=== PATIENT | female | born 1950 | race Caucasian/White ===

== ENCOUNTER 2016-09-09 07:42 | Day surgery (SDC) | payer BC ==
[~2016-09-09 07:42] MED LIST: Lactated Ringers 1,000 ML IV SCH
--- NOTE | 2016-09-09 08:37 | PCM.PREANE ---
Preanesthetic Assessment - Anesthesia/Transfusion/Family Hx Anesthesia History: Prior Anesthesia Without Reaction Other Type of Anesthesia Reaction Comment: pt states her mother has problems with confusion post anesthesia Family History of Anesthesia Reaction: No Transfusion History: Prior Transfusion Without Reaction - Review of Systems General: No Symptoms Pulmonary: No Symptoms Cardiovascular: No Symptoms Gastrointestinal: No symptoms Neurological: No Symptoms Other: Reports: None - Physical Assessment NPO Status Date: 09/08/16 Height: 1.6 m Weight: 120.202 kg ASA Class: 2 Mental Status: Alert & Oriented x3 Airway Class: Mallampati = 2 Dentition: Reports: Normal Dentition Lungs: Clear to auscultation Cardiovascular: Regular Rate, Regular Rhythm - Lab Values: Laboratory Last Values WBC 5.96 K/uL (4.0-11.0) 09/09/16 08:15 RBC 4.65 M/uL (4.30-5.90) 09/09/16 08:15 Hgb 15.5 g/dL (12.0-16.0) 09/09/16 08:15 Hct 46.0 % (36.0-46.0) 09/09/16 08:15 MCV 98.9 fL (80.0-98.0) H 09/09/16 08:15 MCH 33.3 pg (27.0-32.0) H 09/09/16 08:15 MCHC 33.7 g/dL (31.0-37.0) 09/09/16 08:15 RDW Std Deviation 50.5 fl (28.0-62.0) 09/09/16 08:15 RDW Coeff of Jamia 14 % (11.0-15.0) 09/09/16 08:15 Plt Count 263 K/uL (150-400) 09/09/16 08:15 MPV 10.20 fL (7.40-12.00) 09/09/16 08:15 Nucleated RBC % 0.0 /100WBC 09/09/16 08:15 Nucleated RBCs # 0 K/uL 09/09/16 08:15 - Allergies Allergies/Adverse Reactions: Allergies Allergy/AdvReac Type Severity Reaction Status Date / Time codeine Allergy Hives Verified 05/03/15 19:45 metals Allergy Rash Uncoded 09/14/15 13:45 - Blood Blood Available: No - Anesthesia Plan Pre-Op Medication Ordered: None - Acknowledgements Anesthesia Type Planned: General Anesthesia Pt an Appropriate Candidate for the Planned Anesthesia: Yes Alternatives and Risks of Anesthesia Discussed w Pt/Guardian: Yes Pt/Guardian Understands and Agrees with Anesthesia Plan: Yes PreAnesthesia Questionnaire HEENT History: Reports: Other (see below) Other HEENT History: wears glasses Cardiovascular History: Reports: High cholesterol Respiratory History: Reports: None Gastrointestinal History: Reports: GERD Other Gastrointestinal History: esophagitism, hx of crohn's disease, hx of bowel obstruction Genitourinary History: Reports: Renal calculus Other Genitourinary History: hx kidney stones and UTI, fibrocystic breasts, present c/o abnormal uterine bleeding 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 Female Surgical History: Reports: Breast biopsy, D&C Other Female Surgeries/Procedures: hx laparotomy x2 for ovarian cysts, breast bx x2, - SUBSTANCE USE Smoking Status *Q: Former Smoker Tobacco Use Within Last Twelve Months: No Days Per Week of Alcohol Use: 1 Number of Drinks Per Day: 1 Total Drinks Per Week: 1 Recreational Drug Use History: No - HOME MEDS Home Medications: Home Meds ClonazePAM [KlonoPIN] 0.5 mg PO DAILY 05/03/15 [History] Omeprazole 20 mg PO DAILY 05/03/15 [History] atorvaSTATin [Lipitor] 20 mg PO BEDTIME 05/03/15 [History] azaTHIOprine [Azathioprine] 1 tab PO TID 05/03/15 [History] Ibuprofen 1 tab PO Q6H PRN 09/14/15 [History] medroxyPROGESTERone [Provera] 10 mg PO DAILY 04/16/16 [History] Phentermine/Topiramate [Qsymia 15 mg-92 mg Capsule] 1 tab PO DAILY 09/05/16 [ History] - CURRENT (IN HOUSE) MEDS Current Meds: Current Medications Lactated Ringer's (Ringers, Lactated) 1,000 mls @ 100 mls/hr IV ASDIRECTED CARTER Preanesthetic Assessment - ANESTHESIA/TRANSFUSION/FAMILY HX Anesthesia/Transfusion History: Prior Anesthesia (ileostomy for bowel obstruction, ovary, breast cysts, D+C, ETOP: no anesthesia issues noted), Prior Transfusion Other Type of Anesthesia Reaction Comment: pt states her mother has problems with confusion post anesthesia Family History of Anesthesia Reaction: No Other Intubation History Comment: no known problems - PHYSICAL ASSESSMENT Height: 1.6 m Weight: 120.202 kg - LAB Values: Laboratory Last Values WBC 5.96 K/uL (4.0-11.0) 09/09/16 08:15 RBC 4.65 M/uL (4.30-5.90) 09/09/16 08:15 Hgb 15.5 g/dL (12.0-16.0) 09/09/16 08:15 Hct 46.0 % (36.0-46.0) 09/09/16 08:15 MCV 98.9 fL (80.0-98.0) H 09/09/16 08:15 MCH 33.3 pg (27.0-32.0) H 09/09/16 08:15 MCHC 33.7 g/dL (31.0-37.0) 09/09/16 08:15 RDW Std Deviation 50.5 fl (28.0-62.0) 09/09/16 08:15 RDW Coeff of Jamia 14 % (11.0-15.0) 09/09/16 08:15 Plt Count 263 K/uL (150-400) 09/09/16 08:15 MPV 10.20 fL (7.40-12.00) 09/09/16 08:15 Nucleated RBC % 0.0 /100WBC 09/09/16 08:15 Nucleated RBCs # 0 K/uL 09/09/16 08:15 - ALLERGIES Allergies/Adverse Reactions: Allergies Allergy/AdvReac Type Severity Reaction Status Date / Time codeine Allergy Hives Verified 05/03/15 19:45 metals Allergy Rash Uncoded 09/14/15 13:45
[2016-09-09] MEDS ORDERED: fentaNYL 100 MCG/2 ML SDV ONE (08:54)
[2016-09-09] MEDS ORDERED: Midazolam 1 MG/ML 2 ML SDV ONE (08:54)
[2016-09-09] MEDS ORDERED: Lidocaine 2% 5 ML SDV ONE (08:54)
[2016-09-09] MEDS ORDERED: Propofol 200 MG/20 ML SDV ONE (08:54)
[2016-09-09] MEDS ORDERED: fentaNYL 100 MCG/2 ML SDV IVPUSH PRN (09:58)
[2016-09-09] MEDS ORDERED: Ketorolac 30 MG/ML SDV ONE (10:05)
[2016-09-09] MEDS ORDERED: Ondansetron 4 MG/2 ML SDV ONE (10:05)
--- NOTE | 2016-09-09 10:46 | PCM.OPNOTE ---
- General Post-Op/Procedure Note Date of Surgery/Procedure: 09/09/16 Operative Procedure(s): operative hysteroscopy with endometrial and endocervical sampling, placement of Mirena IUD Findings: Uterus fix, retroverted sounds to 7 cm. Bilateral tubal ostia identified, there is a small fundal polyp and irregular endometrium in the lower uterine segment which were sampled. Post-Op Diagnosis: Same Primary Surgeon: Janine Bonilla Anesthesia Provider: Meron Jimenez Pathology: endometrial curettings, endocervical curettings. Fluid Replacement, Intraop: 500 EBL in mLs: 30 Drain/Tube Comments:: hysteroscopic deficit 200 ml NS Complications: None Known Condition: Good
--- NOTE | 2016-09-09 11:00 | PCM.POSTAN ---
POST ANESTHESIA ASSESSMENT - MENTAL STATUS Mental Status: alert, oriented - RESPIRATORY Respiratory Status: respiratory rate WNL, airway patent, O2 saturation stable - CARDIOVASCULAR CV Status: pulse rate WNL, blood pressure stable - GASTROINTESTINAL GI Status: no symptoms - PAIN Pain Score: 2 - POST OP HYDRATION Hydration Status: adequate & stable
--- NOTE | 2016-09-09 11:48 | PCM48HPAN ---
Post Anesthesia Note - EVALUATION WITHIN 48HRS OF ANESTHETIC Vital Signs in Normal Range: Yes Patient Participated in Evaluation: Yes Respiratory Function Stable: Yes Airway Patent: Yes Cardiovascular Function Stable: Yes Hydration Status Stable: Yes Pain Control Satisfactory: Yes Nausea and Vomiting Control Satisfactory: Yes Mental Status Recovered: Yes
[2016-09-09 14:25] VITALS: BP 122/74
--- NOTE | 2016-09-16 09:08 | OR ---
SURGEON: Janine Bonilla M.D. 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 POSTOPERATIVE DIAGNOSIS: Endometrial intraepithelial endothelial neoplasia. PROCEDURE: Diagnostic hysteroscopy with fractional D and C and IUD placement. ANESTHESIA: General endotracheal. FLUIDS: 500 mL crystalloid. HYSTEROSCOPIC DEFICIT: 200 mL. FINDINGS: The uterus is fixed in the pelvis, it sounds to 7 cm. There is a polypoid structure at the right uterine fundus which was removed. Some irregular endometrium on the lower uterine segment which was biopsied. COMPLICATIONS: None known. DISPOSITION: Stable to recovery. BRIEF HISTORY: This is a 66-year-old female. She had a hysteroscopic polypectomy which showed complex endometrial hyperplasia with atypia. She was sent in consultation to the [facility] oncologist, as she does have Crohn's disease, her uterus is fixed. She has a history of enterovaginal fistula and after consulting with the [facility]/DEPUT[facility] oncologist, they recommended re-sampling as well as placement of Mirena IUD. I explained to her that the insertion of the IUD could be very difficult due to the position of her uterus. She understands this. I also will have a Elsa available. She did take Cytotec preoperatively. Surgical risks of hysteroscopy including bleeding, infection, uterine perforation, injury to surrounding organs, risk of fluid overload, risk of thromboembolism, and anesthesia risks were discussed. The Mirena IUD risks were discussed including risk of PID, the fact that it does not prevent sexually transmitted diseases, risk of insertion including perforation requiring surgical removal. She understands that irregular bleeding may occur after the insertion and the need for the IUD to be removed or changed after five years. Understanding all these risks, she does desire to proceed. DESCRIPTION OF PROCEDURE: With the patient in dorsal lithotomy position, under adequate general endotracheal anesthesia, the perineum and vagina were prepped with Betadine and draped in usual fashion for vaginal surgery. An appropriate time-out was held. Bimanual examination revealed a fixed uterus, high in the pelvis in a sharply retroverted position. I took the 5 mm tapered hysteroscope and was able to, with hydro pressure, pass the 5 mm scope through the cervix into the sharply tilted uterine cavity and had excellent visualization. However, there was a polyp at the fundus and irregular endometrium at the base, therefore I felt the need to have directed biopsies which were most easily accomplished with the MyoSure. Therefore, the cervix was further dilated to an 8 mm Hegar dilator. The MyoSure system was placed into the uterine cavity and the directed biopsies were performed as well as sampling of the entire endometrial cavity. This was sent as endometrial curettings. The hysteroscope was removed. Sharp curettage was performed of the endocervix and collected with a Cytobrush and the sample was sent as endocervical curettings. I used the sound which was easily passed through the cervix which had been dilated and the uterus sounded to 7 cm and the IUD was placed to the uterine fundus released and the string was cut with no difficulty. The final sponge, needle, and instrument counts were reported as correct. Hysteroscopic deficit was 200 mL of normal saline. There were no known complications. The patient was transferred to recovery in good condition. CHRISTOPH DOWNS /[id number]
== END 2016-09-09 11:56 | disposition home or self-care (01) ==
LOC: MW.SDS 07:42
PROVIDERS: ATTEND Obstetrics & Gynecology
PROC: 0UDB8ZX Extraction of Endometrium, Via Natural or Artificial Opening Endoscopic, Diagnostic (ICD-10-PCS; principal; 2016-09-09)
PROC: 0UH97HZ Insertion of Contraceptive Device into Uterus, Via Natural or Artificial Opening (ICD-10-PCS; 2016-09-09)
DX: N85.00 Endometrial hyperplasia, unspecified (principal); Z30.014 Encounter for initial prescription of intrauterine contraceptive device; N84.0 Polyp of corpus uteri; K50.90 Crohn's disease, unspecified, without complications; E78.00 Pure hypercholesterolemia, unspecified; E78.5 Hyperlipidemia, unspecified; Z93.2 Ileostomy status; Z79.899 Other long term (current) drug therapy
CPT/HCPCS: 36415; 58300; 58558; 85027; 88305; J1885; J2250; J2405; J3010; J7120; 00952; J2704

== ENCOUNTER 2017-08-08 06:10 | Emergency (ER) | payer MEDICARE, BC ==
--- NOTE | 2017-08-08 06:16 | EDM.PDOC ---
ED HPI GENERAL MEDICAL PROBLEM - General Stated Complaint: ISSUES WITH LYMPH NODES Time Seen by Provider: 08/08/17 06:30 Source of Information: Reports: Patient - History of Present Illness INITIAL COMMENTS - FREE TEXT/NARRATIVE: HISTORY AND PHYSICAL: History of present illness: [67-year-old female presenting to emergency department with chief complaint of painful rash on left side of neck and head with past medical history of Crohn's disease on immunosuppression. Patient states that approximately 3-4 days ago she developed a painful rash on the back of her head has now extended to the left side of her neck. She describes the pain as burning and electrical. The rash is not pruritic and she reports no associated fevers, chills, nausea, vomiting, or diarrhea. Patient is on immunosuppression secondary to her Crohn's disease. When questioned she states that she cannot get the shingles vaccine. Patient currently denies any chest pain, palpitations, shortness breath, syncopal episodes, or focal neurologic deficits. On physical examination she has a vesicular painful rash involving the posterior aspect of the head and neck not crossing midline pathognomonic for herpes zoster. Patient is immunocompromised secondary to her Crohn's disease and did not receive the shingles vaccine. She states that she has had no vision or hearing changes on the left side where the rash is predominant. We'll treat with valacyclovir as unsure of the kidney function to use acyclovir. Patient given a prescription for valacyclovir thousand milligrams by mouth 3 times a day 7 days #21. She sees nor does he and I will help schedule an appointment to have her seen early next week. She should return in the emergency department immediately if she notices any change in her vision. She continues Tylenol and ibuprofen for pain as she states that her pain is only 3 out of 10 at this time.] Review of systems: As per history of present illness and below otherwise all systems reviewed and negative. Past medical history: As per history of present illness and as reviewed below otherwise noncontributory. Surgical history: As per history of present illness and as reviewed below otherwise noncontributory. Social history: No reported history of drug or alcohol abuse. Family history: As per history of present illness and as reviewed below otherwise noncontributory. Physical exam: HEENT: Atraumatic, normocephalic, pupils reactive, negative for conjunctival pallor or scleral icterus, mucous membranes moist, throat clear, neck supple, nontender, trachea midline. Lungs: Clear to auscultation, breath sounds equal bilaterally, chest nontender. Heart: S1S2, regular, negative for clicks, rubs, or JVD. Abdomen: Soft, nondistended, nontender. Negative for masses or hepatosplenomegaly. Negative for costovertebral tenderness. Pelvis: Stable nontender. Genitourinary: Deferred. Rectal: Deferred. Extremities: Atraumatic, negative for cords or calf pain. Neurovascular unremarkable. Neuro: Awake, alert, oriented. Cranial nerves II through XII unremarkable. Cerebellum unremarkable. Motor and sensory unremarkable throughout. Exam nonfocal. Skin: Painful vesicular rash with surrounding erythema on the posterior aspect of neck not crossing the midline and wrapping around the left side of the neck. Diagnostics: [] Therapeutics: [Valacyclovir 1000 mg 3 times a day 7 days] Impression: [Herpes zoster in an immunocompromise patient without involvement of the eye.] Plan: [On physical examination she has a vesicular painful rash involving the posterior aspect of the head and neck not crossing midline pathognomonic for herpes zoster. Patient is immunocompromised secondary to her Crohn's disease and did not receive the shingles vaccine. She states that she has had no vision or hearing changes on the left side where the rash is predominant. We'll treat with valacyclovir as unsure of the kidney function to use acyclovir. Patient given a prescription for valacyclovir thousand milligrams by mouth 3 times a day 7 days #21. She sees Dr. Sun and I will help schedule an appointment to have her seen early next week. She should return in the emergency department immediately if she notices any change in her vision. She continues Tylenol and ibuprofen for pain as she states that her pain is only 3 out of 10 at this time. ] - Related Data Allergies Allergy/AdvReac Type Severity Reaction Status Date / Time codeine Allergy Hives Verified 08/08/17 06:25 metals Allergy Rash Uncoded 08/08/17 06:25 Home Meds: Home Meds ClonazePAM [KlonoPIN] 0.5 mg PO DAILY 05/03/15 [History] Omeprazole 20 mg PO DAILY 05/03/15 [History] atorvaSTATin [Lipitor] 20 mg PO BEDTIME 11/11/15 [History] azaTHIOprine [Azathioprine] 1 tab PO TID 05/03/15 [History] Ibuprofen 1 tab PO Q6H PRN 09/14/15 [History] Phentermine/Topiramate [Qsymia 15 mg-92 mg Capsule] 1 tab PO DAILY 09/05/16 [ History] Past Medical History HEENT History: Reports: Other (See Below) Other HEENT History: wears glasses Cardiovascular History: Reports: High Cholesterol Respiratory History: Reports: None Gastrointestinal History: Reports: GERD Other Gastrointestinal History: esophagitism, hx of crohn's disease, hx of bowel obstruction Genitourinary History: Reports: Renal Calculus Other Genitourinary History: hx kidney stones and UTI, fibrocystic breasts, present c/o abnormal uterine bleeding 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 OB/BYN History: ETOP Musculoskeletal History: Reports: None Neurological History: Reports: Migraines Psychiatric History: Reports: Anxiety Endocrine/Metabolic History: Reports: Obesity/BMI 30+ Hematologic History: Reports: Blood Transfusion(s) Immunologic History: Reports: None Oncologic (Cancer) History: Reports: None Dermatologic History: Reports: None - Past Surgical History Female Surgical History: Reports: Breast Biopsy, D&C Social & Family History - Tobacco Use Smoking Status *Q: Former Smoker Years of Tobacco use: 30 Used Tobacco, but Quit: Yes Month Tobacco Last Used: quit smoking 10 yrs ago - Alcohol Use Days Per Week of Alcohol Use: 1 Number of Drinks Per Day: 1 Total Drinks Per Week: 1 - Recreational Drug Use Recreational Drug Use: No Drug Use in Last 12 Months: No ED ROS GENERAL - Review of Systems Review Of Systems: See Below ED EXAM, GENERAL - Physical Exam Exam: See Below Course - Vital Signs Last Recorded V/S: Last Vital Signs Temp 98 F 08/08/17 06:29 Pulse 81 08/08/17 06:29 Resp 18 08/08/17 06:29 BP 187/90 H 08/08/17 06:29 Pulse Ox 98 08/08/17 06:29 Departure - Departure Time of Disposition: 06:57 Disposition: Home, Self-Care 01 Condition: Good Clinical Impression: Herpes zoster - Discharge Information Additional Instructions: My general discharge The following information is given to patients seen in the emergency department who are being discharged to home. This information is to outline your options for follow-up care. We provide all patients seen in our emergency department with a follow-up referral. The need for follow-up, as well as the timing and circumstances, are variable depending upon the specifics of your emergency department visit. If you don't have a primary care physician on staff, we will provide you with a referral. We always advise you to contact your personal physician following an emergency department visit to inform them of the circumstance of the visit and for follow-up with them and/or the need for any referrals to a consulting specialist. The emergency department will also refer you to a specialist when appropriate. This referral assures that you have the opportunity for follow-up care with a specialist. All of these measure are taken in an effort to provide you with optimal care, which includes your follow-up. Under all circumstances we always encourage you to contact your private physician who remains a resource for coordinating your care. When calling for follow-up care, please make the office aware that this follow-up is from your recent emergency room visit. If for any reason you are refused follow-up, please contact the [facility] Emergency Department at and asked to speak to the emergency department charge nurse. [address] [id number]
[2017-08-08 07:07] VITALS: BP 159/86
== END 2017-08-08 07:00 | disposition home or self-care (01) ==
LOC: MW.ED 06:10
DX: B02.9 Zoster without complications (principal); E78.00 Pure hypercholesterolemia, unspecified; K21.9 Gastro-esophageal reflux disease without esophagitis; F41.9 Anxiety disorder, unspecified; Z87.891 Personal history of nicotine dependence; Z79.899 Other long term (current) drug therapy; Z88.5 Allergy status to narcotic agent; Z88.8 Allergy status to other drugs, medicaments and biological substances
CPT/HCPCS: 99282; 99283

== ENCOUNTER 2017-08-15 06:23 | Day surgery (SDC) | payer MEDICARE, BC ==
[2017-08-14 08:39] LABS: CHLORIDE,CL 111 mmol/L (98-110); SODIUM,NA 141 mmol/L (136-146)
[2017-08-15] MEDS ORDERED: Lactated Ringers 1,000 ML IV SCH (06:30)
[2017-08-15] MEDS ORDERED: Propofol 200 MG/20 ML SDV ONE (07:15)
[2017-08-15] MEDS ORDERED: Lidocaine 2% 5 ML SDV ONE (07:15)
[2017-08-15] MEDS ORDERED: Midazolam 1 MG/ML 2 ML SDV ONE (07:15)
[2017-08-15] MEDS ORDERED: fentaNYL 100 MCG/2 ML SDV ONE (07:15)
[2017-08-15] MEDS ORDERED: Ondansetron 4 MG/2 ML SDV ONE (07:15)
--- NOTE | 2017-08-15 07:25 | PCM.PREANE ---
Preanesthetic Assessment - Anesthesia/Transfusion/Family Hx Anesthesia History: Prior Anesthesia Without Reaction Other Type of Anesthesia Reaction Comment: pt states her mother has problems with confusion post anesthesia Family History of Anesthesia Reaction: No Transfusion History: Prior Transfusion Without Reaction Intubation History: Unknown - Review of Systems General: No Symptoms Pulmonary: No Symptoms Cardiovascular: No Symptoms Gastrointestinal: No Symptoms Neurological: No Symptoms Other: Reports: None - Physical Assessment O2 Sat by Pulse Oximetry: 97 Respiratory Rate: 16 Vital Signs: Last Vital Signs Temp 36.3 C 08/15/17 06:58 Pulse 71 08/15/17 06:58 Resp 16 08/15/17 06:58 BP 146/68 H 08/15/17 06:58 Pulse Ox 97 08/15/17 06:58 Height: 1.6 m Weight: 112.945 kg Mental Status: Alert & Oriented x3 Airway Class: Mallampati = 2 Dentition: Reports: Normal Dentition, [place](s) (x4 upper front) Thyro-Mental Finger Breadths: 3 Mouth Opening Finger Breadths: 3 ROM/Head Extension: Full Lungs: Clear to Auscultation, Normal Respiratory Effort Cardiovascular: Regular Rate, Regular Rhythm - Lab Values: Laboratory Last Values WBC 3.59 K/uL (4.0-11.0) L 08/14/17 08:01 RBC 4.31 M/uL (4.30-5.90) 08/14/17 08:01 Hgb 14.8 g/dL (12.0-16.0) 08/14/17 08:01 Hct 42.9 % (36.0-46.0) 08/14/17 08:01 MCV 99.5 fL (80.0-98.0) H 08/14/17 08:01 MCH 34.3 pg (27.0-32.0) H 08/14/17 08:01 MCHC 34.5 g/dL (31.0-37.0) 08/14/17 08:01 RDW Std Deviation 52.4 fl (28.0-62.0) 08/14/17 08:01 RDW Coeff of Jamia 15 % (11.0-15.0) 08/14/17 08:01 Plt Count 219 K/uL (150-400) 08/14/17 08:01 MPV 9.60 fL (7.40-12.00) 08/14/17 08:01 Nucleated RBC % 0.0 /100WBC 08/14/17 08:01 Nucleated RBCs # 0 K/uL 08/14/17 08:01 Sodium 141 mmol/L (136-146) 08/14/17 08:01 Potassium 3.9 mmol/L (3.5-5.1) 08/14/17 08:01 Chloride 111 mmol/L (98-110) H 08/14/17 08:01 Carbon Dioxide 20 mmol/L (21-31) L 08/14/17 08:01 BUN 12 mg/dL (6.0-23.0) 08/14/17 08:01 Creatinine 0.8 mg/dL (0.6-1.5) 08/14/17 08:01 Est Cr Clr Drug Dosing 57.99 mL/min 08/14/17 08:01 Estimated GFR (MDRD) > 60.0 ml/min 08/14/17 08:01 Glucose 137 mg/dL (60-110) H 08/14/17 08:01 Calcium 9.1 mg/dL (8.8-10.8) 08/14/17 08:01 Total Bilirubin 2.0 mg/dL (0.1-1.5) H 08/14/17 08:01 Direct Bilirubin 0.6 mg/dL (0.0-0.5) H 08/14/17 08:01 Indirect Bilirubin 1.4 mg/dL (0.0-1.0) H 08/14/17 08:01 AST 19 IU/L (5-40) 08/14/17 08:01 ALT 20 IU/L (8-54) 08/14/17 08:01 Alkaline Phosphatase 78 (40-150) 08/14/17 08:01 Total Protein 7.1 g/dL (6.0-8.0) 08/14/17 08:01 Albumin 3.8 g/dL (3.4-4.8) 08/14/17 08:01 Globulin 3.3 g/dL (2.0-3.5) 08/14/17 08:01 Albumin/Globulin Ratio 1.2 (1.3-2.8) L 08/14/17 08:01 Triglycerides 86 mg/dL (10-190) 08/14/17 08:01 Cholesterol 155 mg/dL (131-240) 08/14/17 08:01 LDL Cholesterol, Calc 94 mg/dL (60-180) 08/14/17 08:01 VLDL Cholesterol 17 mg/dL (5-55) 08/14/17 08:01 HDL Cholesterol 44 mg/dL (40-80) 08/14/17 08:01 Cholesterol/HDL Ratio 3.5 (3.3-6.0) 08/14/17 08:01 TSH 3rd Generation 1.37 uIU/mL (0.47-5.0) 08/14/17 08:01 - Allergies Allergies/Adverse Reactions: Allergies Allergy/AdvReac Type Severity Reaction Status Date / Time codeine Allergy Hives Verified 08/13/17 10:09 metals Allergy Rash Uncoded 08/08/17 06:25 - Blood Blood Available: No - Anesthesia Plan Pre-Op Medication Ordered: None - Acknowledgements Anesthesia Type Planned: General Anesthesia Pt an Appropriate Candidate for the Planned Anesthesia: Yes Alternatives and Risks of Anesthesia Discussed w Pt/Guardian: Yes Pt/Guardian Understands and Agrees with Anesthesia Plan: Yes PreAnesthesia Questionnaire HEENT History: Reports: Other (See Below) Other HEENT History: wears glasses Cardiovascular History: Reports: High Cholesterol Respiratory History: Reports: None Gastrointestinal History: Reports: GERD, Hiatal Hernia, Inflammatory Bowel Disease Other Gastrointestinal History: has Crohns- has Illeostomy since Genitourinary History: Reports: Renal Calculus Other Genitourinary History: hx kidney stones and UTI, fibrocystic breasts, present c/o abnormal uterine bleeding SHIFT MGR History: Reports: Ectopic , Other OB/BYN History: ETOP Musculoskeletal History: Reports: Fracture Other Musculoskeletal History: hx of fx wrist and ankle Neurological History: Reports: Migraines, Other (See Below) Other Neuro History: hx of motion sickness Psychiatric History: Reports: Anxiety Endocrine/Metabolic History: Reports: Obesity/BMI 30+ (BMI 44.1) Hematologic History: Reports: Blood Transfusion(s) Immunologic History: Reports: None Oncologic (Cancer) History: Reports: None Dermatologic History: Reports: Eczema - Past Surgical History Head Surgeries/Procedures: Reports: None GI Surgical History: Reports: Small Bowel Other GI Surgeries/Procedures: Illestomy, revision of Illeostomy Female Surgical History: Reports: Breast Biopsy (removal of breast cysts x2) , D&C (x2), Other (See Below) Other Female Surgeries/Procedures: removable of ovarian cysts, hysteroscopy 09/06 Musculoskeletal Surgical History: Reports: ORIF Other Musculoskeletal Surgeries/Procedures:: hx of ORIF wrist- no hardware - SUBSTANCE USE Smoking Status *Q: Former Smoker Tobacco Use Within Last Twelve Months: No Days Per Week of Alcohol Use: 1 Number of Drinks Per Day: 1 Total Drinks Per Week: 1 Recreational Drug Use History: No - HOME MEDS Home Medications: Home Meds ClonazePAM [KlonoPIN] 0.5 mg PO QAM 05/03/15 [History] Omeprazole 20 mg PO DAILY 05/03/15 [History] atorvaSTATin [Lipitor] 20 mg PO QAM 05/03/15 [History] azaTHIOprine [Azathioprine] 50 mg PO TID 05/03/15 [History] Ibuprofen 200 mg PO Q6H PRN 09/14/15 [History] Phentermine/Topiramate [Qsymia 15 mg-92 mg Capsule] 1 tab PO DAILY 09/05/16 [ History] Multivitamin [Multiple Vitamins] 1 tab PO DAILY 08/13/17 [History] - CURRENT (IN HOUSE) MEDS Current Meds: Current Medications Lactated Ringer's (Ringers, Lactated) 1,000 mls @ 125 mls/hr IV ASDIRECTED CARTER Last Admin: 08/15/17 07:01 Dose: 125 mls/hr Discontinued Medications Fentanyl (Sublimaze) Confirm Administered Dose 100 mcg .ROUTE .STK-MED ONE Stop: 08/15/17 07:16 Lidocaine (Xylocaine-Mpf 2%) Confirm Administered Dose 5 ml .ROUTE .STK-MED ONE Stop: 08/15/17 07:16 Midazolam HCl (Versed 1 Mg/Ml) Confirm Administered Dose 2 mg .ROUTE .STK-MED ONE Stop: 08/15/17 07:16 Ondansetron HCl (Zofran) Confirm Administered Dose 4 mg .ROUTE .STK-MED ONE Stop: 08/15/17 07:16 Propofol (Diprivan 20 Ml) Confirm Administered Dose 200 mg .ROUTE .STK-MED ONE Stop: 08/15/17 07:16
[2017-08-15] MEDS ORDERED: fentaNYL 100 MCG/2 ML SDV IVPUSH PRN (08:08)
[2017-08-15] MEDS ORDERED: Ketorolac 30 MG/ML SDV ONE (08:50)
--- NOTE | 2017-08-15 08:57 | PCM.OPNOTE ---
- General Post-Op/Procedure Note Date of Surgery/Procedure: 08/15/17 Operative Procedure(s): operative hysteroscopy with directed biopsies and endocervical curettage Findings: uterus fixed immobile, sharply anteverted, sounds to 7 cm, hysteroscopy shows irregular frond-like lesions in lower uterine segment, biopsied, right endometrial cavity showed polypoid lesions, biopsied. Pre Op Diagnosis: endometrial hyperplasia with atypia Post-Op Diagnosis: Same Anesthesia Technique: General ET Tube Primary Surgeon: Janine Bonilla Anesthesia Provider: Orlin Nowak Driftman: Natividad Vazquez Pathology: directed biopsies, lower uterine segment; directed endometrial biopsied; endocervical curettage Fluid Replacement, Intraop: 1,000 EBL in mLs: 10 Drain/Tube Comments:: hysteroscopic deficit 100 ml NS Complications: None Condition: Good
[2017-08-15 10:14] VITALS: BP 135/62
--- NOTE | 2017-08-15 10:19 | PCM48HPAN ---
Post Anesthesia Note - EVALUATION WITHIN 48HRS OF ANESTHETIC Vital Signs in Normal Range: Yes Patient Participated in Evaluation: Yes Respiratory Function Stable: Yes Airway Patent: Yes Cardiovascular Function Stable: Yes Hydration Status Stable: Yes Pain Control Satisfactory: Yes Nausea and Vomiting Control Satisfactory: Yes Mental Status Recovered: Yes Resp Rate: 15 - COMMENTS/OBSERVATIONS Free Text/Narrative:: no anesthesia problems
--- NOTE | 2017-08-15 14:15 | OR ---
SURGEON: Janine Bonilla M.D. DATE OF PROCEDURE: 08/15/2017 PREOPERATIVE DIAGNOSIS: Endometrial intraepithelial neoplasia. POSTOPERATIVE DIAGNOSIS: Endometrial intraepithelial neoplasia. PROCEDURE: Operative hysteroscopy with directed biopsies and endocervical curettings. ANESTHESIA: General endotracheal. FLUIDS: 1000 mL crystalloid. Hysteroscopic deficit was 100 mL. ESTIMATED BLOOD LOSS: Minimal. COMPLICATIONS: None known. DISPOSITION: Stable to recovery. SPECIMENS: Lower uterine segment biopsies, endometrial biopsies, and endocervical curettings. FINDINGS: The uterus is 6-to 7-week size, markedly anteverted and completely immobile with the cervix fixed to the posterior vagina. The IUD string is visible. The uterus sounds to 7 cm and findings were the right side of the endometrium had some polypoid structures, which were biopsied in the lower uterine segment, were some frondlike irregular areas of endometrium, which were biopsied at the lower uterine segment biopsy. The fundus itself was smooth without lesions. The cervix was smooth without lesions. BRIEF HISTORY: This is a 67-year-old female, she had a history of focal complex hyperplasia in March of 2016 with mild hyperplasia most recently in August of 2016. She has had a Mirena IUD in place since August of 2016 and is here for a followup tissue sampling. She denies any bleeding at this time. She does have some cramping. She states this has occurred since IUD placement. Ultrasound was performed, which showed the IUD to be appropriately positioned. She is consented for diagnostic hysteroscopy with directed biopsy, and D and C, diagnostic possible operative hysteroscopy with directed biopsies, and D and C. The tissue would most likely be obtained by direct biopsy to prevent displacement of the IUD. Risks including bleeding, infection, uterine perforation with injury to surrounding organs, risk of fluid overload, and risk of thromboembolism and anesthesia were discussed. Understanding all these risks, she does desire to proceed. DESCRIPTION OF PROCEDURE: With the patient in dorsal lithotomy position, under adequate general endotracheal anesthesia, the perineum and vagina were prepped with Betadine and draped in the usual fashion for vaginal surgery. After an appropriate time-out was held and the bladder had been drained, SCDs were in place. A bimanual examination was performed with findings as noted above. A speculum was placed into the vagina. The anterior cervix was grasped with an Allis clamp. The narrow tipped 5 mm hysteroscope was placed through the external cervical os and with normal saline open through the hysteroscope I was able to pass without further dilatation. The IUD string was visible, the IUD was visible, and the fundus was identified with a small air bubble and scissors followed by hysteroscopic biopsy forceps were utilized to biopsy the right uterine wall as well as the lower uterine segment. These were sent as 2 separate specimens. There were no other lesions to be biopsied within the uterine cavity. The endocervix was evaluated using a Cytobrush for sampling of the endocervix, which was sent as endocervical curettings. With this being complete, the hysteroscope was removed and all the instruments removed from the vagina. Final sponge, needle, and instrument counts were reported as correct. There were no known complications. The patient was transferred to recovery in good condition. CHRISTOPH DOWNS /[id number]
== END 2017-08-15 10:20 | disposition home or self-care (01) ==
LOC: MW.SDS 06:23
PROVIDERS: ATTEND Obstetrics & Gynecology
DX: N85.02 Endometrial intraepithelial neoplasia [EIN] (principal); E78.00 Pure hypercholesterolemia, unspecified; Z79.899 Other long term (current) drug therapy; Z93.2 Ileostomy status; Z97.5 Presence of (intrauterine) contraceptive device; Z87.891 Personal history of nicotine dependence
CPT/HCPCS: 36415; 58558; 80053; 80061; 82247; 82248; 84443; 85027; 88305; J1885; J2250; J2405; J3010; J7120; 00952; J2704

== ENCOUNTER 2019-01-22 22:12 | Emergency (ER) | payer MEDICARE, BC ==
[2019-01-22] MEDS ORDERED: Sodium Chloride 0.9% 10 ML Syringe FLUSH PRN (22:23)
[2019-01-22] MEDS ORDERED: Ondansetron 4 MG/2 ML SDV IVPUSH ONE (22:23)
[2019-01-22] MEDS ORDERED: Sodium Chloride 0.9% 1,000 ML IV ONE (22:23)
[2019-01-22] MEDS ORDERED: Sodium Chloride 0.9% 2.5 ML Syringe FLUSH PRN (22:23)
[2019-01-22] MEDS ORDERED: Morphine 2 MG/ML Syringe IVPUSH ONE (22:23)
--- NOTE | 2019-01-22 22:28 | EDM.PDOC ---
ED HPI GENERAL MEDICAL PROBLEM - General Chief Complaint: Abdominal Pain Stated Complaint: PT HAS STOMACH PAIN Time Seen by Provider: 01/22/19 22:18 - History of Present Illness INITIAL COMMENTS - FREE TEXT/NARRATIVE: HISTORY AND PHYSICAL: History of present illness: Patient is a 68-year-old female history of Crohn's disease anxiety hypertension who presents with concern of abdominal pain that started 4 hours prior to arrival. Patient states she's had prior bowel obstructions in the past this is somewhat remote her last episode was approximately 15 years prior but states that this feels similar she denies fever chills or urinary symptoms vaginal discharge bleeding or other complaints is been no trauma she denies chest pain or shortness of breath Review of systems: As per history of present illness and below otherwise all systems reviewed and negative. Past medical history: As per history of present illness and as reviewed below otherwise noncontributory. Surgical history: As per history of present illness and as reviewed below otherwise noncontributory. Social history: No reported history of drug or alcohol abuse. Family history: As per history of present illness and as reviewed below otherwise noncontributory. Physical exam: HEENT: Atraumatic, normocephalic, pupils reactive, negative for conjunctival pallor or scleral icterus, mucous membranes moist, throat clear, neck supple, nontender, trachea midline. Lungs: Clear to auscultation, breath sounds equal bilaterally, chest nontender. Heart: S1S2, regular, negative for clicks, rubs, or JVD. Abdomen: Soft, nondistended, no localized tenderness. Negative for masses or hepatosplenomegaly. Negative for costovertebral tenderness. Pelvis: Stable nontender. Genitourinary: Deferred. Rectal: Deferred. Extremities: Atraumatic, negative for cords or calf pain. Neurovascular unremarkable. Neuro: Awake, alert, oriented. Cranial nerves II through XII unremarkable. Cerebellum unremarkable. Motor and sensory unremarkable throughout. Exam nonfocal. Diagnostics: CBC CMP lipase UA CT abdomen and pelvis troponin chest x-ray EKG Therapeutics: Saline 1 L bolus morphine sulfate 2 mg IV Zofran 4 mg IV Impression: Over 1 abdominal pain #2 history of Crohn's disease #3 history of hypertension Definitive disposition and diagnosis as appropriate pending reevaluation and review of above. abdomen Pain Score (Numeric/FACES): 10 - Related Data Allergies Allergy/AdvReac Type Severity Reaction Status Date / Time codeine Allergy Hives Verified 01/22/19 22:21 nickel Allergy Rash Verified 01/22/19 22:21 Home Meds: Home Meds ClonazePAM [KlonoPIN] 0.5 mg PO QAM 05/03/15 [History] Omeprazole 20 mg PO DAILY 05/03/15 [History] atorvaSTATin [Lipitor] 20 mg PO BEDTIME 05/03/15 [History] azaTHIOprine [Azathioprine] 150 mg PO DAILY 05/03/15 [History] Cholecalciferol (Vitamin D3) [Vitamin D3] 1,000 units PO DAILY 05/01/18 [History ] Chromium Picolinate 1,000 mcg PO DAILY 05/01/18 [History] Cyanocobalamin (Vitamin B12) [Vitamin B12] 3,000 mcg PO DAILY 05/01/18 [History] Mv-Min/Iron/Folic/Calcium/Vitk [Women's Multivitamin Tablet] 1 tab PO DAILY 03/10 [History] Phentermine/Topiramate [Qsymia 15 mg-92 mg Capsule] 1 tab PO DAILY 05/01/18 [ History] Ubidecarenone [Coq-10] 200 mg PO DAILY 05/01/18 [History] Fish Oil/[place]-3 Fatty Acids [Fish Oil] mg PO DAILY 01/22/19 [History] Past Medical History HEENT History: Reports: Impaired Vision, Other (See Below) Other HEENT History: wears glasses Cardiovascular History: Reports: High Cholesterol, Other (See Below) Other Cardiovascular History: takes HCTZ as needed for swelling Respiratory History: Reports: None Gastrointestinal History: Reports: GERD Other Gastrointestinal History: has Crohns- has Ileostomy since Genitourinary History: Reports: Renal Calculus Other Genitourinary History: hx kidney stones and UTI, fibrocystic breasts, CARBON SETTER History: Reports: Dysfunctional Uterine Bleeding, Other CARBON SETTER History: ETOP Musculoskeletal History: Reports: Fracture Other Musculoskeletal History: hx of fx wrist and ankle Neurological History: Reports: Migraines, Other (See Below) Other Neuro History: hx of motion sickness Psychiatric History: Reports: Anxiety Endocrine/Metabolic History: Reports: Obesity/BMI 30+ Other Endocrine/Metabolic History: prediabetic Hematologic History: Reports: Blood Transfusion(s) Immunologic History: Reports: None Oncologic (Cancer) History: Reports: Uterine Dermatologic History: Reports: Eczema - Past Surgical History Head Surgeries/Procedures: Reports: None HEENT Surgical History: Reports: None Cardiovascular Surgical History: Reports: None GI Surgical History: Reports: Colon Other GI Surgeries/Procedures: colectomy + ileostomy with at least 2 revisions. Female Surgical History: Reports: Breast Biopsy, Cervical Cryotherapy, D&C Other Female Surgeries/Procedures: laparotomy for ovarian cysts, hysteroscopy Neurological Surgical History: Reports: None Musculoskeletal Surgical History: Reports: ORIF Other Musculoskeletal Surgeries/Procedures:: hx of ORIF wrist- no hardware Oncologic Surgical History: Reports: Biopsy of Breast Social & Family History - Family History Family Medical History: Noncontributory - Tobacco Use Smoking Status *Q: Former Smoker Used Tobacco, but Quit: Yes Month/Year Tobacco Last Used: 15 - Caffeine Use Caffeine Use: Reports: None - Recreational Drug Use Recreational Drug Use: No ED ROS GENERAL - Review of Systems Review Of Systems: ROS reveals no pertinent complaints other than HPI. ED EXAM, GENERAL - Physical Exam Exam: See Below (See dictation) Course - Vital Signs Text/Narrative:: General surgery Dr. Vance was consulted and kindly presented to the ER he reduce the umbilical hernia and arrange for transfer due to medical comorbidities and high risk surgical considerations. He discussed with patient and family transfer was arranged patient will be transferred to [facility] Dr. Oliveira emergency room graciously accepted the patient Last Recorded V/S: Last Vital Signs Temp 35.7 C 01/22/19 22:12 Pulse 67 01/23/19 00:21 Resp 18 01/23/19 00:21 BP 195/90 H 01/23/19 00:21 Pulse Ox 95 01/23/19 00:21 - Orders/Labs/Meds Orders: Active Orders 24 hr Category Date Time Status Cardiac Monitoring [RC] . DIRECTED Care 01/22/19 22:22 Active EKG Documentation Completion [RC] STAT Care 01/22/19 22:22 Active Pulse Oximetry [RC] ASDIRECTED Care 01/22/19 22:22 Active CULTURE BLOOD [BC] Stat Lab 01/22/19 22:42 Results CULTURE BLOOD [BC] Stat Lab 01/22/19 22:54 Received UA RFX RON AND CULT IF INDIC [URIN] Stat Lab 01/22/19 22:23 Ordered Sodium Chloride 0.9% [Saline Flush] Med 01/22/19 22:23 Active 10 ml FLUSH ASDIRECTED PRN Sodium Chloride 0.9% [Saline Flush] Med 01/22/19 22:23 Active 2.5 ml FLUSH ASDIRECTED PRN Blood Culture x2 Reflex Set [OM.PC] Stat Ot 01/22/19 22:23 Ordered Saline Lock Insert [OM.PC] Stat Ot 01/22/19 22:22 Ordered Medication Orders Sodium Chloride (Saline Flush) 10 ml FLUSH ASDIRECTED PRN PRN Reason: Keep Vein Open Last Admin: 01/22/19 22:55 Dose: 10 ml Sodium Chloride (Saline Flush) 2.5 ml FLUSH ASDIRECTED PRN PRN Reason: Keep Vein Open Last Admin: 01/22/19 22:55 Dose: 2.5 ml Labs: Laboratory Tests 01/22/19 01/22/19 01/22/19 Range/Units 22:42 22:42 22:42 WBC 6.92 (4.0-11.0) K/uL RBC 4.45 (4.30-5.90) M/uL Hgb 14.6 (12.0-16.0) g/dL Hct 43.5 (36.0-46.0) % MCV 97.8 (80.0-98.0) fL MCH 32.8 H (27.0-32.0) pg MCHC 33.6 (31.0-37.0) g/dL RDW Std Deviation 48.8 (28.0-62.0) fl RDW Coeff of Jamia 14 (11.0-15.0) % Plt Count 232 (150-400) K/uL MPV 10.00 (7.40-12.00) fL Neut % (Auto) 85.7 H (48.0-80.0) % Lymph % (Auto) 9.0 L (16.0-40.0) % Callahan % (Auto) 4.3 (0.0-15.0) % Eos % (Auto) 0.9 (0.0-7.0) % Baso % (Auto) 0.1 (0.0-1.5) % Neut # (Auto) 5.9 H (1.4-5.7) K/uL Lymph # (Auto) 0.6 (0.6-2.4) K/uL [place]ahan # (Auto) 0.3 (0.0-0.8) K/uL Eos # (Auto) 0.1 (0.0-0.7) K/uL Baso # (Auto) 0.0 (0.0-0.1) K/uL Nucleated RBC % 0.0 /100WBC Nucleated RBCs # 0 K/uL INR 0.97 Sodium 142 (136-145) mmol/L Potassium 3.5 (3.5-5.1) mmol/L Chloride 106 (98-107) mmol/L Carbon Dioxide 27.6 (21.0-32.0) mmol/L BUN 13 (7.0-18.0) mg/dL Creatinine 0.8 (0.6-1.0) mg/dL Est Cr Clr Drug Dosing 52.20 mL/min Estimated GFR (MDRD) > 60.0 ml/min Glucose 126 H (74-106) mg/dL Calcium 9.3 (8.5-10.1) mg/dL Total Bilirubin 1.8 H (0.2-1.0) mg/dL AST 20 (15-37) IU/L ALT 16 (14-63) IU/L Alkaline Phosphatase 96 (46-116) U/L Troponin I < 0.050 (0.000-0.056) ng/mL Total Protein 7.3 (6.4-8.2) g/dL Albumin 3.6 (3.4-5.0) g/dL Globulin 3.7 (2.6-4.0) g/dL Albumin/Globulin Ratio 1.0 (0.9-1.6) Lipase 123 (73-393) U/L Meds: Medications Generic Name Dose Route Start Last Admin Trade Name Freq PRN Reason Stop Dose Admin Sodium Chloride 10 ml 01/22/19 22:23 01/22/19 22:55 Saline Flush FLUSH 10 ml ASDIRECTED PRN Administration Keep Vein Open Sodium Chloride 2.5 ml 01/22/19 22:23 01/22/19 22:55 Saline Flush FLUSH 2.5 ml ASDIRECTED PRN Administration Keep Vein Open Discontinued Medications Generic Name Dose Route Start Last Admin Trade Name Freq PRN Reason Stop Dose Admin Sodium Chloride 1,000 mls @ 999 mls/hr 01/22/19 22:23 01/22/19 22:52 Normal Saline IV 01/22/19 23:23 999 mls/hr STAT ONE Administration Morphine Sulfate 2 mg 01/22/19 22:23 01/22/19 22:54 Morphine IVPUSH 01/22/19 22:24 2 mg ONETIME ONE Administration Morphine Sulfate 2 mg 01/23/19 00:16 01/23/19 00:22 Morphine IVPUSH 01/23/19 00:17 2 mg ONETIME ONE Administration Ondansetron HCl 4 mg 01/22/19 22:23 01/22/19 22:53 Zofran IVPUSH 01/22/19 22:24 4 mg ONETIME ONE Administration Departure - Departure Time of Disposition: 00:40 Disposition: DC/Tfer to Acute Hospital 02 Condition: Good Clinical Impression: Abdominal pain, Bowel obstruction - Discharge Information Referrals: PCP,None [Primary Care Provider] - Forms: ED Department Discharge - My Orders Last 24 Hours: My Active Orders 01/22/19 22:22 Cardiac Monitoring [RC] . DIRECTED EKG Documentation Completion [RC] STAT Pulse Oximetry [RC] ASDIRECTED Saline Lock Insert [OM.PC] Stat 01/22/19 22:23 UA RFX RON AND CULT IF INDIC [URIN] Stat Sodium Chloride 0.9% [Saline Flush] 10 ml FLUSH ASDIRECTED PRN Sodium Chloride 0.9% [Saline Flush] 2.5 ml FLUSH ASDIRECTED PRN Blood Culture x2 Reflex Set [OM.PC] Stat 01/22/19 22:42 CULTURE BLOOD [BC] Stat 01/22/19 22:54 CULTURE BLOOD [BC] Stat - Assessment/Plan Last 24 Hours: My Active Orders 01/22/19 22:22 Cardiac Monitoring [RC] . DIRECTED EKG Documentation Completion [RC] STAT Pulse Oximetry [RC] ASDIRECTED Saline Lock Insert [OM.PC] Stat 01/22/19 22:23 UA RFX RON AND CULT IF INDIC [URIN] Stat Sodium Chloride 0.9% [Saline Flush] 10 ml FLUSH ASDIRECTED PRN Sodium Chloride 0.9% [Saline Flush] 2.5 ml FLUSH ASDIRECTED PRN Blood Culture x2 Reflex Set [OM.PC] Stat 01/22/19 22:42 CULTURE BLOOD [BC] Stat 01/22/19 22:54 CULTURE BLOOD [BC] Stat
[2019-01-22 23:14] LABS: BLOOD UREA NITROGEN,BUN 13 mg/dL (7.0-18.0); CARBON DIOXIDE,CO2 27.6 mmol/L (21.0-32.0); CHLORIDE,CL 106 mmol/L (98-107); GLUCOSE RANDOM 126 mg/dL (74-106); LIPASE 123 U/L (73-393); POTASSIUM,K 3.5 mmol/L (3.5-5.1); SODIUM,NA 142 mmol/L (136-145)
--- NOTE | 2019-01-22 23:21 | CR ---
INDICATION: Chest Pain, shortness of breath TECHNIQUE: Chest radiograph 1 view COMPARISON: 05/03/15 FINDINGS: Severe degradation of image quality noted due to body habitus. Mediastinum: The mediastinum is normal in appearance. The heart silhouette is normal in size and morphology. Lung: Both lungs are unremarkable in appearance. No sign of pleural effusion seen. No pneumothorax is identified. IMPRESSION: 1. No acute cardiopulmonary disease is seen. Dictated by: Amadeo Oconnell MD @ 01/22/2019 23:19:53 (Electronically Signed)
--- NOTE | 2019-01-22 23:39 | CT ---
INDICATION: Abdominal pain. COMPARISON: 07/19/2016 TECHNIQUE: CT examination of the abdomen and pelvis was performed without contrast enhancement using 3 mm thick axial sections from the lung bases through the pubic symphysis. Oral contrast was not administered. Please note that all CT scans at this facility use dose modulation, iterative reconstruction, and/or weight-based dosing when appropriate to reduce radiation dose to as low as reasonably achievable. FINDINGS: There is new prominent distention of the mid small bowel extending to a left periumbilical hernia where there is an a dilated, incarcerated loop of bowel. There is moderate edema of the fat in the hernia. The hernia was previously tiny and previously contained only fat. This results in partial small bowel obstruction. There is additional dilatation of the small bowel distal to the hernia, extending to a point of transition located in the left upper pelvis on axial image 103 series 201 where there is a sharp angulation. This appears to be a small bowel obstruction produced by an adhesion. The small bowel distal to the point of transition is collapsed. Again seen are changes of total colectomy with an ileostomy site located in the right anterior upper pelvic wall. There continues to be peristomal herniation of a nondistended loop of distal small bowel. In the abdomen, the unenhanced liver and adrenals are normal in appearance. Again seen are numerous calcified granulomata scattered throughout the spleen. The pancreas is again seen to be atrophic. The previously seen cyst arising from the lateral interpolar right kidney has increased in size to 2.9 centimeters, previously 2.1 centimeters. The unenhanced kidneys are otherwise normal in appearance. The gallbladder is normal in appearance. The abdominal aorta is normal in caliber with no sign of dilatation. There is no sign of retroperitoneal mass or adenopathy. The stomach and proximal loops of small bowel in the abdomen are normal in appearance. The distal loops of small bowel in the pelvis are normal in appearance. The rectal stump remains normal in appearance The uterus is now seen to contain a T-shaped intrauterine device. The adnexal regions are normal in appearance. The urinary bladder is normal in appearance. There is no sign of pelvic or inguinal mass or adenopathy. There is new moderate platelike atelectasis in the posterior lung bases associated with eventration of both hemidiaphragms. Calcified granulomata are seen in the inferior right benita. The osseous structures are normal in appearance for the patient`s age. IMPRESSION: New partial small bowel obstruction produced by new herniation of small bowel into a small left periumbilical hernia. The loop of bowel within the hernia sac is dilated and there is inflammatory reaction in the peritoneal fat. New high-grade small-bowel obstruction previous spine what appears to be an adhesion in the right upper pelvis located distal to the left periumbilical hernia described above. Again seen are changes of total colectomy with satisfactory appearance of a right upper anterior pelvic wall colostomy site. There continues to be a small peristomal hernia containing a nondistended loop of distal small bowel. CT of the abdomen shows an increase in size of the simple cyst arising from the interpolar right kidney. CT of the pelvis shows satisfactory positioning of a T-shaped intrauterine device during the interval. Again seen are changes of total colectomy and normal-appearing rectal stump. Please note that all CT scans at this facility use dose modulation, iterative reconstruction, and/or weight-based dosing when appropriate to reduce radiation dose to as low as reasonably achievable. Dictated by Lamonte Pineda MD @ Jan 22 2019 11:23PM Signed by Dr. Lamonte Pineda @ Jan 22 2019 11:37PM
[2019-01-23] MEDS ORDERED: Morphine 2 MG/ML Syringe IVPUSH ONE (00:16)
--- NOTE | 2019-01-23 00:46 | PCM.CONS ---
H&P History of Present Illness - General Date of Service: 01/23/19 Admit Problem/Dx: Incarcerated incisional hernia with partial small bowel obstruction. Intra-abdominal small bowel obstruction secondary to adhesions. Source of Information: Patient, Family History Limitations: Reports: No Limitations - History of Present Illness Initial Comments - Free Text/Narative: Patient is a 68-year-old female with a complicated medical and surgical history. She presented to the emergency room this evening with sudden onset of abdominal pain. Her pain was primarily just to the left of the umbilicus. She had been doing a lot of moving of furniture in the last 2-3 weeks. It appears that she had a small incisional hernia that has now become larger and incarcerated. Onset of Symptoms: Reports: Today Duration of Symptoms: Reports: Hour(s): Location: Reports: Abdomen Quality: Reports: Pressure, Throbbing Severity: Moderate Improves with: Reports: Rest Worsens with: Reports: Movement Context: Reports: Sick Contact Associated Symptoms: Reports: Fever/Chills, Loss of Appetite. Denies: Diaphoresis, Headaches, Nausea/Vomiting abdomen Pain Score (Numeric/FACES): 10 - Related Data Allergies/Adverse Reactions: Allergies Allergy/AdvReac Type Severity Reaction Status Date / Time codeine Allergy Hives Verified 01/22/19 22:21 nickel Allergy Rash Verified 01/22/19 22:21 Home Medications: Home Meds ClonazePAM [KlonoPIN] 0.5 mg PO QAM 05/03/15 [History] Omeprazole 20 mg PO DAILY 05/03/15 [History] atorvaSTATin [Lipitor] 20 mg PO BEDTIME 05/03/15 [History] azaTHIOprine [Azathioprine] 150 mg PO DAILY 05/03/15 [History] Cholecalciferol (Vitamin D3) [Vitamin D3] 1,000 units PO DAILY 05/01/18 [History ] Chromium Picolinate 1,000 mcg PO DAILY 05/01/18 [History] Cyanocobalamin (Vitamin B12) [Vitamin B12] 3,000 mcg PO DAILY 05/01/18 [History] Mv-Min/Iron/Folic/Calcium/Vitk [Women's Multivitamin Tablet] 1 tab PO DAILY 03/10 [History] Phentermine/Topiramate [Qsymia 15 mg-92 mg Capsule] 1 tab PO DAILY 05/01/18 [ History] Ubidecarenone [Coq-10] 200 mg PO DAILY 05/01/18 [History] Fish Oil/[place]-3 Fatty Acids [Fish Oil] mg PO DAILY 01/22/19 [History] Past Medical History HEENT History: Reports: Impaired Vision, Other (See Below) Other HEENT History: wears glasses Cardiovascular History: Reports: High Cholesterol, Other (See Below) Other Cardiovascular History: takes HCTZ as needed for swelling Respiratory History: Reports: None Gastrointestinal History: Reports: GERD Other Gastrointestinal History: has Crohns- has Ileostomy since Genitourinary History: Reports: Renal Calculus Other Genitourinary History: hx kidney stones and UTI, fibrocystic breasts, 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: Dysfunctional Uterine Bleeding, Other OB/BYN History: ETOP Musculoskeletal History: Reports: Fracture Other Musculoskeletal History: hx of fx wrist and ankle Neurological History: Reports: Migraines, Other (See Below) Other Neuro History: hx of motion sickness Psychiatric History: Reports: Anxiety Endocrine/Metabolic History: Reports: Obesity/BMI 30+ Other Endocrine/Metabolic History: prediabetic Hematologic History: Reports: Blood Transfusion(s) Immunologic History: Reports: None Oncologic (Cancer) History: Reports: Uterine Dermatologic History: Reports: Eczema - Past Surgical History Head Surgeries/Procedures: Reports: None HEENT Surgical History: Reports: None Cardiovascular Surgical History: Reports: None GI Surgical History: Reports: Colon, Hernia, Abdominal Other GI Surgeries/Procedures: colectomy + ileostomy with at least 2 revisions. Female Surgical History: Reports: Breast Biopsy, Cervical Cryotherapy, D&C Other Female Surgeries/Procedures: laparotomy for ovarian cysts, hysteroscopy Neurological Surgical History: Reports: None Musculoskeletal Surgical History: Reports: ORIF Other Musculoskeletal Surgeries/Procedures:: hx of ORIF wrist- no hardware Oncologic Surgical History: Reports: Biopsy of Breast Social & Family History - Family History Family Medical History: Noncontributory - Tobacco Use Smoking Status *Q: Former Smoker Used Tobacco, but Quit: Yes Month/Year Tobacco Last Used: 15 - Caffeine Use Caffeine Use: Reports: None - Recreational Drug Use Recreational Drug Use: No H&P Review of Systems - Review of Systems: Review Of Systems: See Below General: Reports: Fever, Malaise, Weakness, Fatigue, Decreased Appetite. Denies : Chills, Weight Loss HEENT: Reports: No Symptoms Pulmonary: Denies: Shortness of Breath, Wheezing Cardiovascular: Denies: Chest Pain Gastrointestinal: Reports: Abdominal Pain, Anorexia, Decreased Appetite, Nausea , Vomiting. Denies: Black Stool, Bloody Stool, Constipation, Diarrhea, Flatus, Hematemesis, Hematochezia, Melena Genitourinary: Denies: Dysuria, Frequency, Burning Musculoskeletal: Reports: No Symptoms Skin: Denies: Cyanosis, Jaundice Psychiatric: Denies: Confusion, Depression, Mood Lability, Anxiety Neurological: Denies: No Symptoms Hematologic/Lymphatic: Denies: No Symptoms Immunologic: Denies: No Symptoms Exam - Exam Exam: See Below - Vital Signs Vital Signs: Last Vital Signs Temp 96.2 F 01/22/19 22:12 Pulse 67 01/23/19 00:21 Resp 18 01/23/19 00:21 BP 195/90 H 01/23/19 00:21 Pulse Ox 95 01/23/19 00:21 Weight: 240 lb - Exam Quality Assessment: Supplemental Oxygen. No: Central Line/PICC, Urinary Catheter General: Alert, Oriented, Cooperative, Moderate Distress HEENT: Conjunctiva Clear, EACs Clear Neck: Supple, Trachea Midline Lungs: Clear to Auscultation, Normal Respiratory Effort. No: Wheezing Cardiovascular: Regular Rate, Regular Rhythm. No: Tachycardia, Systolic Murmur , Diastolic Murmur GI/Abdominal Exam: Soft, No Distention, No Mass, Other (Abdomen is obese. There is an ileostomy in the right lower quadrant.). No: Guarding, Rigid, Rebound, Tender, Abnormal Bowel Sounds (High-pitched), Mass (Female) Exam: Deferred Rectal (Female) Exam: Deferred Back Exam: Normal Inspection Extremities: Normal Inspection Peripheral Pulses: 4+: Posterior Tibial (L), Posterior Tibial (R), Dorsalis Pedis (L), Dorsalis Pedis (R) Skin: Warm, Dry, Intact Neurological: Cranial Nerves Intact Neuro Extensive - Mental Status: Alert, Oriented x3 Psychiatric: Alert, Normal Affect, Normal Mood - Patient Data Lab Results Last 24 hrs: Laboratory Results - last 24 hr 01/22/19 01/22/19 01/22/19 Range/Units 22:42 22:42 22:42 WBC 6.92 (4.0-11.0) K/uL RBC 4.45 (4.30-5.90) M/uL Hgb 14.6 (12.0-16.0) g/dL Hct 43.5 (36.0-46.0) % MCV 97.8 (80.0-98.0) fL MCH 32.8 H (27.0-32.0) pg MCHC 33.6 (31.0-37.0) g/dL RDW Std Deviation 48.8 (28.0-62.0) fl RDW Coeff of Jamia 14 (11.0-15.0) % Plt Count 232 (150-400) K/uL MPV 10.00 (7.40-12.00) fL Neut % (Auto) 85.7 H (48.0-80.0) % Lymph % (Auto) 9.0 L (16.0-40.0) % Pratt % (Auto) 4.3 (0.0-15.0) % Eos % (Auto) 0.9 (0.0-7.0) % Baso % (Auto) 0.1 (0.0-1.5) % Neut # (Auto) 5.9 H (1.4-5.7) K/uL Lymph # (Auto) 0.6 (0.6-2.4) K/uL Pratt # (Auto) 0.3 (0.0-0.8) K/uL Eos # (Auto) 0.1 (0.0-0.7) K/uL Baso # (Auto) 0.0 (0.0-0.1) K/uL Nucleated RBC % 0.0 /100WBC Nucleated RBCs # 0 K/uL INR 0.97 Sodium 142 (136-145) mmol/L Potassium 3.5 (3.5-5.1) mmol/L Chloride 106 (98-107) mmol/L Carbon Dioxide 27.6 (21.0-32.0) mmol/L BUN 13 (7.0-18.0) mg/dL Creatinine 0.8 (0.6-1.0) mg/dL Est Cr Clr Drug Dosing 52.20 mL/min Estimated GFR (MDRD) > 60.0 ml/min Glucose 126 H (74-106) mg/dL Calcium 9.3 (8.5-10.1) mg/dL Total Bilirubin 1.8 H (0.2-1.0) mg/dL AST 20 (15-37) IU/L ALT 16 (14-63) IU/L Alkaline Phosphatase 96 (46-116) U/L Troponin I < 0.050 (0.000-0.056) ng/mL Total Protein 7.3 (6.4-8.2) g/dL Albumin 3.6 (3.4-5.0) g/dL Globulin 3.7 (2.6-4.0) g/dL Albumin/Globulin Ratio 1.0 (0.9-1.6) Lipase 123 (73-393) U/L Result Diagrams: 01/22/19 22:42 01/22/19 22:42 Sunil Results Last 24 hrs: Microbiology 01/22/19 22:42 Anaerobic Blood Culture - Final Blood - Venous Consult PN Assessment/Plan Procedures: Procedures ASSAY OF CK (CPK) (05/03/15) ASSAY OF MAGNESIUM (05/03/15) ASSAY OF SERUM POTASSIUM (04/19/16) ASSAY OF TROPONIN QUANT (05/03/15) ASSAY THYROID STIM HORMONE (08/15/17) BILIRUBIN DIRECT (08/15/17) BILIRUBIN TOTAL (08/15/17) JAEL DNA DIR PROBE (10/05/18) CHEST X-RAY 1 VIEW FRONTAL (05/03/15) COMPLETE CBC AUTOMATED (08/15/17) COMPLETE CBC W/AUTO DIFF WBC (04/19/16) COMPREHEN METABOLIC PANEL (08/15/17) CREATINE MB FRACTION (05/03/15) CT ABD & PELV W/CONTRAST (07/19/16) ECHO EXAM OF ABDOMEN (05/03/15) ELECTROCARDIOGRAM TRACING (05/03/15) EMERGENCY DEPT VISIT (08/08/17) EMERGENCY DEPT VISIT (05/03/15) EXCISE EXCESSIVE SKIN ARM (05/06/18) CHUNG VAG DNA DIR PROBE (10/05/18) HYSTEROSCOPY BIOPSY (08/15/17) INSERT INTRAUTERINE DEVICE (09/09/16) LIPID PANEL (08/15/17) METABOLIC PANEL TOTAL CA (07/28/15) PROTHROMBIN TIME (05/03/15) ROUTINE VENIPUNCTURE (08/15/17) THER/PROPH/DIAG INJ IV PUSH (05/03/15) TISSUE EXAM BY PATHOLOGIST (08/15/17) TRICHOMONAS VAGIN DIR PROBE (10/05/18) TX/PRO/DX INJ NEW DRUG ADDON (05/03/15) TX/PRO/DX INJ SAME DRUG AGENCY LEGAL COUNSEL (05/03/15) VITAMIN B-12 (09/25/16) (1) Obesity, Class III, BMI 40-49.9 (morbid obesity) SNOMED Code(s): 641132394, 345687025, 72585034846380 Code(s): E66.01 - MORBID (SEVERE) OBESITY DUE TO EXCESS CALORIES Priority: Medium Current Visit: Yes (2) Hypertension SNOMED Code(s): 67604900 Code(s): I10 - ESSENTIAL (PRIMARY) HYPERTENSION Priority: Medium Current Visit: Yes (3) Presence of ileostomy SNOMED Code(s): 597330921 Code(s): Z93.2 - ILEOSTOMY STATUS Priority: Medium Current Visit: Yes (4) History of Crohn's disease SNOMED Code(s): 144793364590960 Code(s): Z87.19 - PERSONAL HISTORY OF OTHER DISEASES OF THE DIGESTIVE SYSTEM Priority: High Current Visit: Yes (5) Abdominal pain SNOMED Code(s): 81589869 Code(s): R10.9 - UNSPECIFIED ABDOMINAL PAIN Priority: High Current Visit : Yes Qualifiers: Abdominal location: periumbilical Qualified Code(s): R10.33 - Periumbilical pain (6) Bowel obstruction SNOMED Code(s): 78351532 Code(s): K56.609 - UNSP INTESTNL OBST, UNSP TO PARTIAL VERSUS COMPLETE OBST Priority: High Current Visit: Yes Qualifiers: Intestinal obstruction type: obstruction due to adhesions Intestinal obstruction extent: partial Qualified Code(s): K56.51 - Intestinal adhesions [ bands], with partial obstruction Problem List Initiated/Reviewed/Updated: Yes Plan: Patient has a very complicated medical and surgical situation with morbid obesity, newly diagnosed sleep apnea, hypertension, a history of Crohns' disease requiring total abdominal colectomy and permanent ileostomy with new intra-abdominal high grade SBO and sudden onset of an incisional hernia today. I was able to reduce the incisional hernia but she is a high risk surgical candidate and may require ventilator and critical care support post procedure. She will require transfer/care in a larger facility.
[2019-01-23 02:19] VITALS: BP 209/99; PULSE 92
== END 2019-01-23 02:30 ==
LOC: MW.ED 22:12
DX: K56.609 Unspecified intestinal obstruction, unspecified as to partial versus complete obstruction (principal); I10 Essential (primary) hypertension; F41.9 Anxiety disorder, unspecified; K21.9 Gastro-esophageal reflux disease without esophagitis; E66.9 Obesity, unspecified; Z68.30 Body mass index [BMI] 30.0-30.9, adult; Z87.891 Personal history of nicotine dependence; Z88.8 Allergy status to other drugs, medicaments and biological substances; Z79.899 Other long term (current) drug therapy
CPT/HCPCS: 36415; 71045; 74176; 80053; 81001; 81003; 83690; 84484; 85025; 85610; 87040; 87086; 93005; 96361; 96374; 96375; 96376; 99285; J2270; J2405; J7040; 99284

== ENCOUNTER 2019-03-08 06:36 | Day surgery (SDC) | payer MEDICARE, BC ==
--- NOTE | 2019-03-08 07:31 | PCM.PREANE ---
Preanesthetic Assessment - Anesthesia/Transfusion/Family Hx Anesthesia History: Prior Anesthesia Reaction Other Type of Anesthesia Reaction Comment: sleepy and snoring after arm reduction, kept additional 8 hours after outpt Family History of Anesthesia Reaction: No Transfusion History: Prior Transfusion Without Reaction Intubation History: Unknown - Review of Systems General: No Symptoms Pulmonary: Other (raffaele sx as above) Cardiovascular: No Symptoms Gastrointestinal: Other (crohns flare 1 month ago) Neurological: No Symptoms, Other (hx of migraine) - Physical Assessment Vital Signs: Last Vital Signs Temp 98.1 F 03/08/19 07:16 Pulse 71 03/08/19 07:16 Resp 16 03/08/19 07:16 BP 121/70 03/08/19 07:16 Pulse Ox 95 03/08/19 07:16 Height: 5 ft 2.75 in Weight: 111.13 kg ASA Class: 3 Mental Status: Alert & Oriented x3 Airway Class: Mallampati = 3 Dentition: Reports: [place](s) (maxillary central incisors) ROM/Head Extension: Full Lungs: Clear to Auscultation, Normal Respiratory Effort Cardiovascular: Regular Rate, Regular Rhythm - Lab Values: Laboratory Last Values WBC 6.08 K/uL (4.0-11.0) 03/08/19 07:00 RBC 4.39 M/uL (4.30-5.90) 03/08/19 07:00 Hgb 14.5 g/dL (12.0-16.0) 03/08/19 07:00 Hct 43.5 % (36.0-46.0) 03/08/19 07:00 MCV 99.1 fL (80.0-98.0) H 03/08/19 07:00 MCH 33.0 pg (27.0-32.0) H 03/08/19 07:00 MCHC 33.3 g/dL (31.0-37.0) 03/08/19 07:00 RDW Std Deviation 51.6 fl (28.0-62.0) 03/08/19 07:00 RDW Coeff of Jamia 14 % (11.0-15.0) 03/08/19 07:00 Plt Count 264 K/uL (150-400) 03/08/19 07:00 MPV 9.70 fL (7.40-12.00) 03/08/19 07:00 Nucleated RBC % 0.0 /100WBC 03/08/19 07:00 Nucleated RBCs # 0 K/uL 03/08/19 07:00 HCG, Qual NEGATIVE (NEG) 03/08/19 07:00 - Allergies Allergies/Adverse Reactions: Allergies Allergy/AdvReac Type Severity Reaction Status Date / Time codeine Allergy Hives Verified 03/03/19 13:28 nickel Allergy Rash Verified 03/03/19 13:28 - Blood Blood Available: No - Anesthesia Plan Pre-Op Medication Ordered: None - Acknowledgements Anesthesia Type Planned: General Anesthesia Pt an Appropriate Candidate for the Planned Anesthesia: Yes Alternatives and Risks of Anesthesia Discussed w Pt/Guardian: Yes Pt/Guardian Understands and Agrees with Anesthesia Plan: Yes Additional Comments: PMH: prob raffaele, crohns, [place], anxiety PLAN: ga, prop and ket, minimize narcotic and benzos, advised to stop clonazepine, sleep in recliner, RAFFAELE inst sheet given PreAnesthesia Questionnaire HEENT History: Reports: Cataract, Other (See Below) Other HEENT History: wears glasses Cardiovascular History: Reports: High Cholesterol Other Cardiovascular History: takes HCTZ as needed for swelling Respiratory History: Reports: Other (See Below) Other Respiratory History: is scheduled for a sleep study Gastrointestinal History: Reports: Hiatal Hernia, Inflammatory Bowel Disease Other Gastrointestinal History: hx of Crohns disease Genitourinary History: Reports: Renal Calculus Other Genitourinary History: hx kidney stones and UTI, fibrocystic breasts, 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: Reports: , Therapeutic Other OB/BYN History: ETOP Musculoskeletal History: Reports: Arthritis, Fracture Other Musculoskeletal History: hx of fx wrist and ankle Neurological History: Reports: Migraines, Other (See Below) Other Neuro History: hx of motion sickness Psychiatric History: Reports: Anxiety Endocrine/Metabolic History: Reports: Obesity/BMI 30+, Other (See Below) Other Endocrine/Metabolic History: Pre-diabetic Hematologic History: Reports: Blood Transfusion(s) Immunologic History: Reports: Immunosuppression Oncologic (Cancer) History: Reports: Uterine Dermatologic History: Reports: Eczema - Past Surgical History Head Surgeries/Procedures: Reports: None GI Surgical History: Reports: Other (See Below) Other GI Surgeries/Procedures: has Illeostomy Female Surgical History: Reports: Breast Biopsy, Cystectomy, D&C Musculoskeletal Surgical History: Reports: Other (See Below) Other Musculoskeletal Surgeries/Procedures:: bilateral arm reduction - SUBSTANCE USE Smoking Status *Q: Former Smoker Tobacco Use Within Last Twelve Months: No Recreational Drug Use History: No - HOME MEDS Home Medications: Home Meds ClonazePAM [KlonoPIN] 0.5 mg PO QAM 05/03/15 [History] Omeprazole 20 mg PO DAILY 05/03/15 [History] atorvaSTATin [Lipitor] 20 mg PO BEDTIME 05/03/15 [History] azaTHIOprine [Azathioprine] 150 mg PO TID 05/03/15 [History] Cholecalciferol (Vitamin D3) [Vitamin D3] 1,000 units PO DAILY 05/01/18 [History ] Chromium Picolinate 1,000 mcg PO DAILY 05/01/18 [History] Cyanocobalamin (Vitamin B12) [Vitamin B12] 3,000 mcg PO DAILY 05/01/18 [History] Mv-Min/Iron/Folic/Calcium/Vitk [Women's Multivitamin Tablet] 1 tab PO DAILY 03/10 [History] Ubidecarenone [Coq-10] 200 mg PO DAILY 05/01/18 [History] Fish Oil/[place]-3 Fatty Acids [Fish Oil] 1,000 mg PO DAILY 01/22/19 [History] Ibuprofen 200 mg PO Q6H PRN 03/03/19 [History] Levonorgestrel [Mirena] 1 unit VAG ONETIME 03/03/19 [History] Phentermine HCl [Lomaira] 8 mg PO TID 03/03/19 [History] - CURRENT (IN HOUSE) MEDS Current Meds: Current Medications Lactated Ringer's (Ringers, Lactated) 1,000 mls @ 125 mls/hr IV ASDIRECTED [facility] Last Admin: 03/08/19 07:15 Dose: 125 mls/hr
[2019-03-08] MEDS ORDERED: Propofol 200 MG/20 ML SDV ONE (07:39)
[2019-03-08] MEDS ORDERED: Ondansetron 4 MG/2 ML SDV ONE (07:39)
[2019-03-08] MEDS ORDERED: Lidocaine 2% 5 ML SDV ONE (07:39)
[2019-03-08] MEDS ORDERED: Ketamine 500 mg/10 ML MDV ONE (07:39)
[2019-03-08] MEDS ORDERED: ceFAZolin 1 GM Vial ONE (08:15)
[2019-03-08] MEDS ORDERED: diphenhydrAMINE 50 MG/ML SDV ONE (08:24)
[2019-03-08] MEDS ORDERED: Dexamethasone 4 MG/ML 5 ML MDV ONE (08:24)
[2019-03-08] MEDS ORDERED: 50% Dextrose in Water 50 ML Syringe IVPUSH PRN (08:29)
[2019-03-08] MEDS ORDERED: Atropine 0.1 MG/ML 10 ML Syringe IVPUSH PRN ×2 (08:29)
[2019-03-08] MEDS ORDERED: EPINEPHrine 1:10,000 1 MG/10 ML Syringe IVPUSH PRN (08:29)
[2019-03-08] MEDS ORDERED: Albuterol 0.083% 2.5 MG/3 ML Neb Soln NEB PRN (08:29)
[2019-03-08] MEDS ORDERED: Naloxone 0.4 MG/ML Syringe IVPUSH PRN (08:29)
[2019-03-08] MEDS ORDERED: fentaNYL 100 MCG/2 ML SDV IVPUSH PRN (08:29)
--- NOTE | 2019-03-08 08:44 | PCM.OPNOTE ---
- General Post-Op/Procedure Note Date of Surgery/Procedure: 03/08/19 Operative Procedure(s): operative hysteroscopy with directed biopsies. Findings: uterus fixed, midposition, sounded to 7 cm, IUD in place, irregular endometrium at right fundal region, biospied and lower uterine segment, biopsied. Pre Op Diagnosis: complex endometrial hyperplasia with atypia Post-Op Diagnosis: Same Anesthesia Technique: General LMA Primary Surgeon: Janine Bonilla Anesthesia Provider: Alex Moore Warehouse Operator: Natividad Vazquez Pathology: directed endometrial biopsy, right uterine fundus; directed endometrial biopsy, posterior lower uterine segment. Fluid Replacement, Intraop: 1,000 EBL in mLs: 5 Drain/Tube Comments:: hysteroscopic deficit 75 ml NS Complications: None Known Condition: Good Free Text/Narrative:: Intake & Output 03/07/19 03/08/19 03/08/19 22:59 06:59 14:59 Output Total 10 Balance -10
--- NOTE | 2019-03-08 09:30 | PCM.POSTAN ---
POST ANESTHESIA ASSESSMENT - MENTAL STATUS Mental Status: Alert, Oriented - VITAL SIGNS Vital Signs: Last Vital Signs Temp 97.5 F 03/08/19 08:47 Pulse 76 03/08/19 09:17 Resp 15 03/08/19 09:17 BP 151/67 H 03/08/19 09:17 Pulse Ox 96 03/08/19 09:17 - RESPIRATORY Respiratory Status: Respiratory Rate WNL, Airway Patent, O2 Saturation Stable - CARDIOVASCULAR CV Status: Pulse Rate WNL, Blood Pressure Stable - GASTROINTESTINAL GI Status: No Symptoms - PAIN Pain Score: 2 (pt states tolerable cramping) - POST OP HYDRATION Hydration Status: Adequate & Stable - OBSERVATIONS Free Text/Narrative:: Pt resting comfortably, but opens eyes and responds appropriately. Minimal pain that pt verbalizes is "tolerable". VSS. Stable for discharge to phase II recovery.
--- NOTE | 2019-03-08 11:01 | OR ---
SURGEON: Janine Bonilla M.D. DATE OF PROCEDURE: 03/08/2019 PREOPERATIVE DIAGNOSES: Complex endometrial hyperplasia with atypia, intrauterine device in place, postmenopausal bleeding. POSTOPERATIVE DIAGNOSES: Complex endometrial hyperplasia with atypia, intrauterine device in place, postmenopausal bleeding. PROCEDURE: Hysteroscopic-directed biopsies. ANESTHESIA: General LMA. ESTIMATED BLOOD LOSS: Less than 10 mL. FLUIDS: 1000 mL crystalloid. HYSTEROSCOPIC DEFICIT: 75 mL. COMPLICATIONS: None known. DISPOSITION: Stable to Recovery. OPERATIVE FINDINGS: The uterus is fixed, mid position. The cervix is posterior. The uterus sounds to 7 cm. The IUD is appropriately in position. Bilateral cornua are identified. The tubal ostia could not clearly be seen. There was irregular endometrium in the right anterior uterus near the fundal region, which was biopsied and a second area in the lower posterior uterine segment, which was biopsied. No other lesions were noted. BRIEF HISTORY: This is a 68-year-old female with a history of complex endometrial hyperplasia with atypia. She was seen by [facility]. They recommended placement of an IUD, which was performed. Followup sampling has been negative, but is always done with hysteroscopy due to the IUD as well as her very difficult examination due to Crohn's and extensive pelvic adhesions with a fixed uterus and a history of fistulas. Therefore, she presents for hysteroscopy with directed biopsy. No D and C will be performed due to the IUD being in place. She did have some spotting and endometrial thickness was 4.7 mm. Therefore, she presents for further evaluation. DESCRIPTION OF PROCEDURE: Bimanual examination revealed the uterus fixed, mid position. After an appropriate time-out was held, the speculum was placed into the vagina. Cervix was grasped with an Allis clamp, and the uterus was dilated to 5 mm Hegar dilator. A 5 mm hysteroscope was placed via the cervix, and following the IUD string and the IUD tip, the uterine cavity was entered without difficulty. Normal saline was used as a distending medium. There was excellent visualization of the uterine cavity with findings as noted above. The areas of biopsy were undermined with hysteroscopic scissors and grasped with hysteroscopic graspers and removed and sent to Pathology. The hysteroscope was removed. All the instruments removed from the vagina. Final sponge, needle, and instrument counts were reported as correct. There were no known complications. The patient was transferred to Recovery in good condition. CHRISTOPH DOWNS /[id number]
--- NOTE | 2019-03-08 13:58 | PCM48HPAN ---
Post Anesthesia Note - EVALUATION WITHIN 48HRS OF ANESTHETIC Vital Signs in Normal Range: Yes Patient Participated in Evaluation: Yes Respiratory Function Stable: Yes Airway Patent: Yes Cardiovascular Function Stable: Yes Hydration Status Stable: Yes Pain Control Satisfactory: Yes Nausea and Vomiting Control Satisfactory: Yes Mental Status Recovered: Yes Vital Signs: Last Vital Signs Temp 97.5 F 03/08/19 08:47 Pulse 74 03/08/19 09:22 Resp 13 03/08/19 09:22 BP 167/84 H 03/08/19 09:22 Pulse Ox 94 L 03/08/19 09:22 - COMMENTS/OBSERVATIONS Free Text/Narrative:: now 1.5 hr since last sat of 89% will observe another 30 min. advised no clonapin, narcotics, opioids, sleep on side or in recliner. keep appt for sleep study.
[2019-03-08 14:58] VITALS: BP 129/60; PULSE 83
== END 2019-03-08 14:36 | disposition home or self-care (01) ==
LOC: MW.SDS 06:36
PROVIDERS: ATTEND Obstetrics & Gynecology
DX: N95.0 Postmenopausal bleeding (principal); N85.8 Other specified noninflammatory disorders of uterus; E78.00 Pure hypercholesterolemia, unspecified; K50.90 Crohn's disease, unspecified, without complications; F17.220 Nicotine dependence, chewing tobacco, uncomplicated; G43.909 Migraine, unspecified, not intractable, without status migrainosus; G47.33 Obstructive sleep apnea (adult) (pediatric); Z88.5 Allergy status to narcotic agent; Z91.09 Other allergy status, other than to drugs and biological substances; Z97.5 Presence of (intrauterine) contraceptive device; Z79.899 Other long term (current) drug therapy
CPT/HCPCS: 36415; 84703; 85027; 88305; J0131; J0690; J1100; J1200; J2001; J2405; J2704; J7120

== ENCOUNTER 2019-07-26 03:07 | Observation (INO) | payer MEDICARE, BC ==
[2019-07-26] MEDS ORDERED: Sodium Chloride 0.9% 1,000 ML IV ONE (03:28)
[2019-07-26] MEDS ORDERED: Sodium Chloride 0.9% 2.5 ML Syringe FLUSH PRN (03:28)
[2019-07-26] MEDS ORDERED: Ondansetron 4 MG/2 ML SDV IVPUSH ONE (03:28)
[2019-07-26] MEDS ORDERED: Sodium Chloride 0.9% 10 ML Syringe FLUSH PRN (03:28)
[2019-07-26] MEDS ORDERED: Morphine 2 MG/ML Syringe IVPUSH ONE (03:28)
--- NOTE | 2019-07-26 03:34 | EDM.PDOC ---
ED HPI GENERAL MEDICAL PROBLEM - General Chief Complaint: Gastrointestinal Problem Stated Complaint: INTESTINAL BLOCKAGE Time Seen by Provider: 07/26/19 03:11 - History of Present Illness INITIAL COMMENTS - FREE TEXT/NARRATIVE: HISTORY AND PHYSICAL: History of present illness: The patient is a 69-year-old female with a history of hypertension obesity GERD sleep apnea anxiety and Crohn's for which she is currently not on any Biologics and for which she has had a total colectomy and a permanent ileostomy and who presents with gradual onset of mid/left mid abdominal pain since 12 noon, 15+ hours ago. The patient says that when the pain started it was crampy and stabbing and it felt like she was starting to have an intestinal blockage and she thought it might work itself out which is why she delayed coming in. She did have a fever chest pain or upper respiratory symptoms and has had no vomiting but she has had nausea. She said no urinary issues. The patient says that the output in her ileostomy is diminished and the character does vary depending on what she eats so the fact that it is more watery and liquidy here is not unusual. She does state that the output is slightly diminished. She feels gassy and bloated and she says the pain she is experiencing is exactly like her prior bowel obstructions. The patient had a bowel obstruction that was diagnosed here on September [id number] which was secondary to an incisional hernia and prior to that she had not had any issues or problems with bowel obstructions for almost 15 years. That ED visit was reviewed by me and the patient had labs and a CAT scan which did diagnose the incisional hernia as well as a new high-grade small bowel obstruction secondary to adhesions in the right upper pelvis and located distal to the left periumbilical hernia. Because of her high risk for surgery Dr. Vance came in and reduced the incisional hernia and she was transferred to [facility] and according to the patient they did not operate on her but they watched her and allowed her bowel obstruction to open up naturally. According to the patient the plan was for her to follow-up with 1 of the surgeons that come here locally to [facility] to evaluate her for an elective repair of this incisional hernia and she has not done that. The patient did not take any medications other than over-the- counter for the pain and nothing for the nausea. The patient points to the left of her umbilicus as the location of pain and she says that is always where it is. She says it migrates all over her abdomen. She does not feel specifically bloated. When asked specifically about her Crohn's disease she says that she has not had any recent flareups and is not on any injectables or Biologics. Review of systems: As per history of present illness and below otherwise all systems reviewed and negative. Past medical history: As per history of present illness and as reviewed below otherwise noncontributory. Surgical history: As per history of present illness and as reviewed below otherwise noncontributory. Social history: No reported history of drug or alcohol abuse. Family history: As per history of present illness and as reviewed below otherwise noncontributory. Physical exam: Well-developed well-nourished obese female who is quiet but is nontoxic appearing and vital signs are noted by me. HEENT: Atraumatic, normocephalic, pupils reactive, negative for conjunctival pallor or scleral icterus, mucous membranes tacky, throat clear, neck supple, nontender, trachea midline. Lungs: Clear to auscultation, breath sounds equal bilaterally, chest nontender. Heart: S1S2, regular, negative for clicks, rubs, or JVD. Abdomen: Soft, nondistended, sounds are present but slightly high-pitched on my evaluation. There is no tympany on percussion but there is diffuse mild abdominal tenderness on palpation more specifically there is moderate tenderness to the left of the incision as well as in the mid upper abdomen just superior to her incision. There is no gross incisional hernia that I can appreciate and her ileostomy in the right lower quadrant is present with liquidy light brown stool and no tenderness in this region.. Negative for masses or hepatosplenomegaly. Pelvis: Stable nontender. Genitourinary: Deferred. Rectal: Deferred. Extremities: Atraumatic, negative for cords or calf pain. Neurovascular unremarkable. Neuro: Awake, alert, oriented. Cranial nerves II through XII unremarkable. Cerebellum unremarkable. Motor and sensory unremarkable throughout. Exam nonfocal. Diagnostics: CBC CMP lactic acid UA with reflex CT scan of the abdomen and pelvis Therapeutics: IV fluids Zofran morphine 0600: She Says that she no longer has nausea and her pain is significantly improved and in fact she just had a large liquid stool output in her ostomy bag and she says that she feels like some things are moving and opening up. On my examination there is no tenderness or discrete hernia appreciated in the peristomal area. Overall her abdomen is much improved and she has minimal tenderness on deep palpation in the prior areas of discomfort. She is agreeable with admission and is aware that I will discuss the case with Dr. Vance 0603: Case was discussed with Dr. Vance who agrees with mission here to medicine and Dr. Davis and he will be on consult. He says that we certainly can observe her for the next 8 to 12 hours and make sure that she opens up naturally and if not he agrees with transfer to my not if she is deteriorating or not improving significantly. The patient was made aware of this conversation and is aware that if she does not improve or if her clinical statement changes that she will need to be transferred and she is in agreement. 0612: Discussed with Dr. Davis who agrees with observation admission. Impression: Bowel obstruction with history of colectomy ileostomy and Crohn's, parastomal hernia Definitive disposition and diagnosis as appropriate pending reevaluation and review of above. Left Abdomen Pain Score (Numeric/FACES): 10 - Related Data Allergies Allergy/AdvReac Type Severity Reaction Status Date / Time codeine Allergy Hives Verified 07/26/19 03:19 nickel Allergy Rash Verified 07/26/19 03:19 Home Meds: Home Meds ClonazePAM [KlonoPIN] 0.5 mg PO QAM 05/03/15 [History] Omeprazole 20 mg PO DAILY 05/03/15 [History] atorvaSTATin [Lipitor] 20 mg PO BEDTIME 05/03/15 [History] azaTHIOprine [Azathioprine] 150 mg PO TID 05/03/15 [History] Cholecalciferol (Vitamin D3) [Vitamin D3] 1,000 units PO DAILY 05/01/18 [History ] Chromium Picolinate 1,000 mcg PO DAILY 05/01/18 [History] Cyanocobalamin (Vitamin B12) [Vitamin B12] 3,000 mcg PO DAILY 05/01/18 [History] Mv-Min/Iron/Folic/Calcium/Vitk [Women's Multivitamin Tablet] 1 tab PO DAILY 03/10 [History] Ubidecarenone [Coq-10] 200 mg PO DAILY 05/01/18 [History] Fish Oil/[place]-3 Fatty Acids [Fish Oil] 1,000 mg PO DAILY 01/22/19 [History] Ibuprofen 200 mg PO Q6H PRN 03/03/19 [History] levonorgestreL [Mirena] 1 unit VAG ONETIME 03/03/19 [History] Past Medical History HEENT History: Reports: Cataract, Other (See Below) Other HEENT History: wears glasses Cardiovascular History: Reports: High Cholesterol Other Cardiovascular History: takes HCTZ as needed for swelling Respiratory History: Reports: None Other Respiratory History: is scheduled for a sleep study Gastrointestinal History: Reports: Bowel Obstruction, Hiatal Hernia, Inflammatory Bowel Disease Other Gastrointestinal History: hx of Crohns disease Genitourinary History: Reports: Renal Calculus Other Genitourinary History: hx kidney stones and UTI, fibrocystic breasts, 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: , Therapeutic Other STILL PUMP OPERATOR History: ETOP Musculoskeletal History: Reports: Arthritis, Fracture Other Musculoskeletal History: hx of fx wrist and ankle Neurological History: Reports: Migraines, Other (See Below) Other Neuro History: hx of motion sickness Psychiatric History: Reports: Anxiety Endocrine/Metabolic History: Reports: Obesity/BMI 30+, Other (See Below) Other Endocrine/Metabolic History: Pre-diabetic Hematologic History: Reports: Blood Transfusion(s) Immunologic History: Reports: Immunosuppression Oncologic (Cancer) History: Reports: Uterine Dermatologic History: Reports: Eczema - Infectious Disease History Infectious Disease History: Reports: Chicken Pox, Shingles - Past Surgical History Head Surgeries/Procedures: Reports: None HEENT Surgical History: Reports: Tonsillectomy GI Surgical History: Reports: Other (See Below) Other GI Surgeries/Procedures: has Illeostomy Female Surgical History: Reports: Breast Biopsy, Cystectomy, D&C Musculoskeletal Surgical History: Reports: Other (See Below) Other Musculoskeletal Surgeries/Procedures:: bilateral arm reduction Social & Family History - Family History Family Medical History: Noncontributory - Tobacco Use Smoking Status *Q: Former Smoker Used Tobacco, but Quit: Yes Month/Year Tobacco Last Used: 1999 - Caffeine Use Caffeine Use: Reports: None - Recreational Drug Use Recreational Drug Use: No ED ROS GENERAL - Review of Systems Review Of Systems: Comprehensive ROS is negative, except as noted in HPI. ED EXAM, GENERAL - Physical Exam Exam: See Below (see dictation) Course - Vital Signs Last Recorded V/S: Last Vital Signs Temp 35.9 C 07/26/19 05:00 Pulse 79 07/26/19 05:00 Resp 16 07/26/19 05:00 BP 135/56 L 07/26/19 05:00 Pulse Ox 92 L 07/26/19 05:00 - Orders/Labs/Meds Orders: Active Orders 24 hr Category Date Time Status Patient Status [ADT] Stat ADT 07/26/19 06:15 Ordered Notify Provider Consults [RC] ASDIRECTED Care 07/26/19 06:06 Active Consult to Physician [CONS] Stat Cons 07/26/19 06:06 Active UA RFX RON AND CULT IF INDIC [URIN] Stat Lab 07/26/19 03:28 Ordered Sodium Chloride 0.9% [Normal Saline] 1,000 ml Med 07/26/19 04:30 Active IV ASDIRECTED Sodium Chloride 0.9% [Saline Flush] Med 07/26/19 03:28 Active 10 ml FLUSH ASDIRECTED PRN Sodium Chloride 0.9% [Saline Flush] Med 07/26/19 03:28 Active 2.5 ml FLUSH ASDIRECTED PRN Saline Lock Insert [OM.PC] Stat Oth 07/26/19 03:28 Ordered Medication Orders Sodium Chloride (Normal Saline) 1,000 mls @ 150 mls/hr IV ASDIRECTED CARTER Sodium Chloride (Saline Flush) 10 ml FLUSH ASDIRECTED PRN PRN Reason: Keep Vein Open Sodium Chloride (Saline Flush) 2.5 ml FLUSH ASDIRECTED PRN PRN Reason: Keep Vein Open Labs: Laboratory Tests 07/26/19 07/26/19 07/26/19 Range/Units 03:50 04:10 04:10 WBC 10.33 (4.0-11.0) K/uL RBC 5.07 (4.30-5.90) M/uL Hgb 17.2 H (12.0-16.0) g/dL Hct 51.1 H (36.0-46.0) % MCV 100.8 H (80.0-98.0) fL MCH 33.9 H (27.0-32.0) pg MCHC 33.7 (31.0-37.0) g/dL RDW Std Deviation 53.5 (28.0-62.0) fl RDW Coeff of Jamia 15 (11.0-15.0) % Plt Count 292 (150-400) K/uL MPV 10.20 (7.40-12.00) fL Neut % (Auto) 89.5 H (48.0-80.0) % Lymph % (Auto) 3.0 L (16.0-40.0) % [place] % (Auto) 6.8 (0.0-15.0) % Eos % (Auto) 0.4 (0.0-7.0) % Baso % (Auto) 0.3 (0.0-1.5) % Neut # (Auto) 9.3 H (1.4-5.7) K/uL Lymph # (Auto) 0.3 L (0.6-2.4) K/uL [place] # (Auto) 0.7 (0.0-0.8) K/uL Eos # (Auto) 0.0 (0.0-0.7) K/uL Baso # (Auto) 0.0 (0.0-0.1) K/uL Nucleated RBC % 0.0 /100WBC Nucleated RBCs # 0 K/uL Lactate 2.1 H* (0.20-2.00) mmol/L Sodium 146 H (136-145) mmol/L Potassium 3.6 (3.5-5.1) mmol/L Chloride 107 (98-107) mmol/L Carbon Dioxide 32.5 H (21.0-32.0) mmol/L BUN 11 (7.0-18.0) mg/dL Creatinine 1.1 H (0.6-1.0) mg/dL Est Cr Clr Drug Dosing 42.85 mL/min Estimated GFR (MDRD) 49.5 ml/min Glucose 138 H (74-106) mg/dL Calcium 9.4 (8.5-10.1) mg/dL Total Bilirubin 2.4 H (0.2-1.0) mg/dL AST 24 (15-37) IU/L ALT 26 (14-63) IU/L Alkaline Phosphatase 113 (46-116) U/L C-Reactive Protein (0.00-0.90) mg/dL Total Protein 8.5 H (6.4-8.2) g/dL Albumin 4.0 (3.4-5.0) g/dL Globulin 4.5 H (2.6-4.0) g/dL Albumin/Globulin Ratio 0.9 (0.9-1.6) 07/26/19 Range/Units 04:10 WBC (4.0-11.0) K/uL RBC (4.30-5.90) M/uL Hgb (12.0-16.0) g/dL Hct (36.0-46.0) % MCV (80.0-98.0) fL MCH (27.0-32.0) pg MCHC (31.0-37.0) g/dL RDW Std Deviation (28.0-62.0) fl RDW Coeff of Jamia (11.0-15.0) % Plt Count (150-400) K/uL MPV (7.40-12.00) fL Neut % (Auto) (48.0-80.0) % Lymph % (Auto) (16.0-40.0) % [place] % (Auto) (0.0-15.0) % Eos % (Auto) (0.0-7.0) % Baso % (Auto) (0.0-1.5) % Neut # (Auto) (1.4-5.7) K/uL Lymph # (Auto) (0.6-2.4) K/uL [place] # (Auto) (0.0-0.8) K/uL Eos # (Auto) (0.0-0.7) K/uL Baso # (Auto) (0.0-0.1) K/uL Nucleated RBC % /100WBC Nucleated RBCs # K/uL Lactate (0.20-2.00) mmol/L Sodium (136-145) mmol/L Potassium (3.5-5.1) mmol/L Chloride (98-107) mmol/L Carbon Dioxide (21.0-32.0) mmol/L BUN (7.0-18.0) mg/dL Creatinine (0.6-1.0) mg/dL Est Cr Clr Drug Dosing mL/min Estimated GFR (MDRD) ml/min Glucose (74-106) mg/dL Calcium (8.5-10.1) mg/dL Total Bilirubin (0.2-1.0) mg/dL AST (15-37) IU/L ALT (14-63) IU/L Alkaline Phosphatase (46-116) U/L C-Reactive Protein 0.60 (0.00-0.90) mg/dL Total Protein (6.4-8.2) g/dL Albumin (3.4-5.0) g/dL Globulin (2.6-4.0) g/dL Albumin/Globulin Ratio (0.9-1.6) Meds: Medications Generic Name Dose Route Start Last Admin Trade Name Freq PRN Reason Stop Dose Admin Sodium Chloride 1,000 mls @ 150 mls/hr 07/26/19 04:30 Normal Saline IV ASDIRECTED CARTER Sodium Chloride 10 ml 07/26/19 03:28 Saline Flush FLUSH ASDIRECTED PRN Keep Vein Open Sodium Chloride 2.5 ml 07/26/19 03:28 Saline Flush FLUSH ASDIRECTED PRN Keep Vein Open Discontinued Medications Generic Name Dose Route Start Last Admin Trade Name Freq PRN Reason Stop Dose Admin Sodium Chloride 1,000 mls @ 999 mls/hr 07/26/19 03:28 07/26/19 03:59 Normal Saline IV 07/26/19 04:28 999 mls/hr STAT ONE Administration Iopamidol 100 ml 07/26/19 04:52 07/26/19 05:05 Isovue-370 (76%) IVPUSH 07/26/19 04:53 100 ml ONETIME STA Administration Morphine Sulfate 4 mg 07/26/19 03:28 07/26/19 03:59 Morphine IVPUSH 07/26/19 03:29 4 mg ONETIME ONE Administration Ondansetron HCl 4 mg 07/26/19 03:28 07/26/19 04:00 Zofran IVPUSH 07/26/19 03:29 4 mg ONETIME ONE Administration Departure - Departure Time of Disposition: 06:17 Disposition: Refer to Observation Condition: Good Clinical Impression: Partial small bowel obstruction Parastomal hernia Qualifiers: Obstruction and gangrene presence: with obstruction but without gangrene Qualified Code(s): K43.3 - Parastomal hernia with obstruction, without gangrene - Discharge Information Referrals: Gail Sutherland DO [Primary Care Provider] - Forms: ED Department Discharge Sepsis Event Note - Evaluation Sepsis Screening Result: No Definite Risk - Focused Exam Vital Signs: Vital Signs Temp Pulse Resp BP Pulse Ox 07/26/19 05:00 35.9 C 79 16 135/56 L 92 L 07/26/19 03:17 35.1 C L 73 20 180/85 H 93 L Date Exam was Performed: 07/26/19 Time Exam was Performed: 06:17 - My Orders Last 24 Hours: My Active Orders 07/26/19 03:28 UA RFX RON AND CULT IF INDIC [URIN] Stat Sodium Chloride 0.9% [Saline Flush] 10 ml FLUSH ASDIRECTED PRN Sodium Chloride 0.9% [Saline Flush] 2.5 ml FLUSH ASDIRECTED PRN Saline Lock Insert [OM.PC] Stat 07/26/19 04:30 Sodium Chloride 0.9% [Normal Saline] 1,000 ml IV ASDIRECTED 07/26/19 06:06 Notify Provider Consults [RC] ASDIRECTED Consult to Physician [CONS] Stat 07/26/19 06:15 Patient Status [ADT] Stat - Assessment/Plan Last 24 Hours: My Active Orders 07/26/19 03:28 UA RFX RON AND CULT IF INDIC [URIN] Stat Sodium Chloride 0.9% [Saline Flush] 10 ml FLUSH ASDIRECTED PRN Sodium Chloride 0.9% [Saline Flush] 2.5 ml FLUSH ASDIRECTED PRN Saline Lock Insert [OM.PC] Stat 07/26/19 04:30 Sodium Chloride 0.9% [Normal Saline] 1,000 ml IV ASDIRECTED 07/26/19 06:06 Notify Provider Consults [RC] ASDIRECTED Consult to Physician [CONS] Stat 07/26/19 06:15 Patient Status [ADT] Stat
[2019-07-26] MEDS ORDERED: Sodium Chloride 0.9% 1,000 ML IV SCH (04:30)
[2019-07-26 04:35] LABS: CARBON DIOXIDE,CO2 32.5 mmol/L (21.0-32.0); POTASSIUM,K 3.6 mmol/L (3.5-5.1)
[2019-07-26] MEDS ORDERED: Iopamidol 755 Mg/ML 100 ML Bottle IVPUSH STA (04:52)
--- NOTE | 2019-07-26 05:54 | CT ---
INDICATION: Abdominal pain TECHNIQUE: CT abdomen and pelvis with 50 cc Isovue 370 contrast. The IV infiltrated during the midportion of the IV contrast injection. COMPARISON: January 22, 2019 FINDINGS: Lower chest: Coronary artery disease. Liver: Unremarkable. Spleen: Calcified granulomata. Pancreas: Unremarkable. Gallbladder and bile ducts: Unremarkable. Adrenal glands: Unremarkable. Kidneys: Simple cyst on the right kidney. GI tract: Status post total colectomy with right lower quadrant ileostomy. Fluid-filled loops of small bowel reach a maximum diameter 3.0 cm. There is a parastomal hernia containing a loop of small bowel which may be the source of the obstruction. Vascular structures: Unremarkable. Lymph nodes: Unremarkable. Miscellaneous: There is a small fat containing left paramedian umbilical hernia. There are a few very small fat containing infraumbilical ventral hernias. Presacral soft tissue density may be postoperative in nature and is stable compared to the prior exam. No free air or significant free fluid. Pelvic Organs: IUD within the uterus. 3.3 cm cystic lesion in the left adnexa. Bones: Unremarkable for age. IMPRESSION: Small-bowel obstruction. There is a right lower quadrant ileostomy with a parastomal hernia containing a loop of small bowel. This appears to be the cause of obstruction. Coronary artery disease. Status post total colectomy. IUD within the uterus. There is also a 3.3 cm cystic lesion in the left adnexa.Recommend pelvic ultrasound for evaluation of the cystic lesion and gynecology referral for possible removal of IUD in this postmenopausal patient. Please note that all CT scans at this facility use dose modulation, iterative reconstruction, and/or weight-based dosing when appropriate to reduce radiation dose to as low as reasonably achievable. Dictated by Brunilda Villar MD @ Jul 26 2019 5:52AM Signed by Dr. Brunilda Villar @ Jul 26 2019 5:52AM
[2019-07-26] MEDS ORDERED: Ondansetron 4 MG/2 ML SDV IVPUSH PRN (08:18)
[2019-07-26] MEDS: Lactated Ringers 1,000 ML IV SCH ×2 (08:36→16:56)
--- NOTE | 2019-07-26 08:49 | PCM.HP.2 ---
H&P History of Present Illness - General Date of Service: 07/26/19 Admit Problem/Dx: Admission Diagnosis/Problem Admission Diagnosis/Problem Intestinal obstruction Source of Information: Patient History Limitations: Reports: No Limitations - History of Present Illness Initial Comments - Free Text/Narative: This 69 year old female with pmh of extensive abdominal surgeries related to Crohns disease, ileostomy and ventral and parastomal hernias presented to the ED with pain to abdomen that has been there for over 15 hours. She reports the pain started yesterday and she felt like it was like her obstruction shes had in the past and felt she could wait it out at home. The pain progressively worsened and she presented. She denies vomiting, mild nausea. She reports pain was controlled in the ED with Morphine and she is feeling better. She reports very liquid and high amount of output in her ileostomy since arrival. This liquid of stool is not quite her normal. She denies fevers or chills. No chest pain or SOB. No urinary concerns. She denies bloody stools. She reports 10+ surgical operations on her abdomen. She reports she was transferred for similar reason a few months ago and i nMiot they did conservative treatment, with follow up as outpatient, but she was unable to make this appointment. She reports she is unable to drive to [place] and was waiting for traveling surgeon to return to [facility]. In the ED no leukocytosis noted, hgb 17.2, lactic acid 2.1. Na 146, bicarb 32.5 , BUN 11 Cr 1.1, and Bilirubin 2.4. CT of abdomen reveals small bowel obsturction in RLQ, parastomal hernia containing loop of small bowel, likely cause of obstruction. CT also mentioned left adenexal cystic lesion measuring 3.3 cm with IUD in place. She was given IVF bolus for elevated lactic acid, as well as Morphine and zofran. Dr Vance contact in ED regrading CT findings, recommended admission to Hospitalist team and he would consult and see patient today. Left Abdomen Pain Score (Numeric/FACES): 10 - Related Data Allergies/Adverse Reactions: Allergies Allergy/AdvReac Type Severity Reaction Status Date / Time codeine Allergy Hives Verified 07/26/19 08:56 nickel Allergy Rash Verified 07/26/19 08:56 Home Medications: Home Meds ClonazePAM [KlonoPIN] 0.5 mg PO QAM PRN 05/03/15 [History] Omeprazole 20 mg PO DAILY 05/03/15 [History] atorvaSTATin [Lipitor] 20 mg PO BEDTIME 05/03/15 [History] azaTHIOprine [Azathioprine] 50 mg PO TID 05/03/15 [History] Cholecalciferol (Vitamin D3) [Vitamin D3] 1,000 units PO DAILY 05/01/18 [History ] Chromium Picolinate 1,000 mcg PO DAILY 05/01/18 [History] Cyanocobalamin (Vitamin B12) [Vitamin B12] 3,000 mcg PO DAILY 05/01/18 [History] Mv-Min/Iron/Folic/Calcium/Vitk [Women's Multivitamin Tablet] 1 tab PO DAILY 03/10 [History] Ubidecarenone [Coq-10] 200 mg PO DAILY 05/01/18 [History] Fish Oil/North-3 Fatty Acids [Fish Oil] 1,000 mg PO DAILY 01/22/19 [History] Ibuprofen 200 mg PO Q6H PRN 03/03/19 [History] levonorgestreL [Mirena] 1 unit VAG ONETIME 03/03/19 [History] Cranberry Extract/Vit C [Azo Cranberry Softgel] 2 cap PO DAILY 07/26/19 [History ] Phentermine HCl 37.5 mg PO DAILY 07/26/19 [History] Past Medical History HEENT History: Reports: Cataract, Other (See Below) Other HEENT History: wears glasses Cardiovascular History: Reports: High Cholesterol Other Cardiovascular History: takes HCTZ as needed for swelling Respiratory History: Reports: None Other Respiratory History: is scheduled for a sleep study Gastrointestinal History: Reports: Bowel Obstruction, Hiatal Hernia, Inflammatory Bowel Disease Other Gastrointestinal History: hx of Crohns disease Genitourinary History: Reports: Renal Calculus Other Genitourinary History: hx kidney stones and UTI, fibrocystic breasts, DOLL WIGS HACKLER History: Reports: , Therapeutic Other OB/BYN History: ETOP Musculoskeletal History: Reports: Arthritis, Fracture Other Musculoskeletal History: hx of fx wrist and ankle Neurological History: Reports: Migraines, Other (See Below) Other Neuro History: hx of motion sickness Psychiatric History: Reports: Anxiety Endocrine/Metabolic History: Reports: Obesity/BMI 30+, Other (See Below) Other Endocrine/Metabolic History: Pre-diabetic Hematologic History: Reports: Blood Transfusion(s) Immunologic History: Reports: Immunosuppression Oncologic (Cancer) History: Reports: Uterine Dermatologic History: Reports: Eczema - Infectious Disease History Infectious Disease History: Reports: Chicken Pox, Shingles - Past Surgical History Head Surgeries/Procedures: Reports: None HEENT Surgical History: Reports: Tonsillectomy GI Surgical History: Reports: Other (See Below) (Total colectomy with RLQ ileostomy.) Female Surgical History: Reports: Breast Biopsy, Cystectomy, D&C Musculoskeletal Surgical History: Reports: Other (See Below) Other Musculoskeletal Surgeries/Procedures:: bilateral arm reduction Social & Family History - Family History Family Medical History: Noncontributory - Tobacco Use Smoking Status *Q: Former Smoker Used Tobacco, but Quit: Yes Month/Year Tobacco Last Used: 1999 - Caffeine Use Caffeine Use: Reports: None - Recreational Drug Use Recreational Drug Use: No H&P Review of Systems - Review of Systems: Review Of Systems: See Below General: Reports: No Symptoms. Denies: Fever, Chills, Malaise Pulmonary: Reports: No Symptoms. Denies: Shortness of Breath Cardiovascular: Reports: No Symptoms. Denies: Chest Pain Gastrointestinal: Reports: Abdominal Pain (crampy and sharp, intermittent), Nausea, Other (increase in liquid stool from ileostomy). Denies: Bloody Stool, Vomiting Musculoskeletal: Reports: No Symptoms. Denies: Back Pain, Leg Pain Skin: Reports: No Symptoms Neurological: Reports: No Symptoms Hematologic/Lymphatic: Reports: No Symptoms Immunologic: Reports: No Symptoms Exam - Exam Exam: See Below - Vital Signs Vital Signs: Last Vital Signs Temp 96.6 F 07/26/19 05:00 Pulse 79 07/26/19 08:15 Resp 16 07/26/19 08:15 BP 112/70 07/26/19 08:15 Pulse Ox 96 07/26/19 08:15 Weight: 113.398 kg - Exam General: Alert, Oriented HEENT: Conjunctiva Clear, Pupils Reactive Lungs: Clear to Auscultation, Normal Respiratory Effort Cardiovascular: Regular Rate, Regular Rhythm GI/Abdominal Exam: No Distention, Tender (RLQ). No: Normal Bowel Sounds (normal , slightly high pitched.), Distended Back Exam: Normal Inspection Extremities: Normal Inspection, Normal Range of Motion, Non-Tender, No Pedal Edema Neuro Extensive - Mental Status: Alert, Oriented x3 Neuro Extensive - Motor, Sensory, Reflexes: CN II-XII Intact Psychiatric: Alert, Normal Affect, Normal Mood - Patient Data Lab Results Last 24 hrs: Laboratory Results - last 24 hr 07/26/19 07/26/19 07/26/19 Range/Units 03:50 04:10 04:10 WBC 10.33 (4.0-11.0) K/uL RBC 5.07 (4.30-5.90) M/uL Hgb 17.2 H (12.0-16.0) g/dL Hct 51.1 H (36.0-46.0) % MCV 100.8 H (80.0-98.0) fL MCH 33.9 H (27.0-32.0) pg MCHC 33.7 (31.0-37.0) g/dL RDW Std Deviation 53.5 (28.0-62.0) fl RDW Coeff of Jamia 15 (11.0-15.0) % Plt Count 292 (150-400) K/uL MPV 10.20 (7.40-12.00) fL Neut % (Auto) 89.5 H (48.0-80.0) % Lymph % (Auto) 3.0 L (16.0-40.0) % Bracken % (Auto) 6.8 (0.0-15.0) % Eos % (Auto) 0.4 (0.0-7.0) % Baso % (Auto) 0.3 (0.0-1.5) % Neut # (Auto) 9.3 H (1.4-5.7) K/uL Lymph # (Auto) 0.3 L (0.6-2.4) K/uL Bracken # (Auto) 0.7 (0.0-0.8) K/uL Eos # (Auto) 0.0 (0.0-0.7) K/uL Baso # (Auto) 0.0 (0.0-0.1) K/uL Nucleated RBC % 0.0 /100WBC Nucleated RBCs # 0 K/uL Lactate 2.1 H* (0.20-2.00) mmol/L Sodium 146 H (136-145) mmol/L Potassium 3.6 (3.5-5.1) mmol/L Chloride 107 (98-107) mmol/L Carbon Dioxide 32.5 H (21.0-32.0) mmol/L BUN 11 (7.0-18.0) mg/dL Creatinine 1.1 H (0.6-1.0) mg/dL Est Cr Clr Drug Dosing 42.85 mL/min Estimated GFR (MDRD) 49.5 ml/min Glucose 138 H (74-106) mg/dL Calcium 9.4 (8.5-10.1) mg/dL Total Bilirubin 2.4 H (0.2-1.0) mg/dL AST 24 (15-37) IU/L ALT 26 (14-63) IU/L Alkaline Phosphatase 113 (46-116) U/L C-Reactive Protein (0.00-0.90) mg/dL Total Protein 8.5 H (6.4-8.2) g/dL Albumin 4.0 (3.4-5.0) g/dL Globulin 4.5 H (2.6-4.0) g/dL Albumin/Globulin Ratio 0.9 (0.9-1.6) Urine Color Urine Appearance Urine pH (5.0-8.0) Ur Specific [place] (1.001-1.035) Urine Protein (NEGATIVE) mg/dL Urine Glucose (UA) (NEGATIVE) mg/dL Urine Ketones (NEGATIVE) mg/dL Urine Occult Blood (NEGATIVE) Urine Nitrite (NEGATIVE) Urine Bilirubin (NEGATIVE) Urine Urobilinogen (<2.0) EU/dL Ur Leukocyte Esterase (NEGATIVE) Urine RBC (0-2/HPF) Urine WBC (0-5/HPF) Ur Epithelial Cells (NONE-FEW) Calcium Oxalate Crystal (NEGATIVE) Urine Bacteria (NEGATIVE) Urine Mucus (NONE-MOD) 07/26/19 07/26/19 07/26/19 Range/Units 04:10 06:30 08:35 WBC (4.0-11.0) K/uL RBC (4.30-5.90) M/uL Hgb (12.0-16.0) g/dL Hct (36.0-46.0) % MCV (80.0-98.0) fL MCH (27.0-32.0) pg MCHC (31.0-37.0) g/dL RDW Std Deviation (28.0-62.0) fl RDW Coeff of Jamia (11.0-15.0) % Plt Count (150-400) K/uL MPV (7.40-12.00) fL Neut % (Auto) (48.0-80.0) % Lymph % (Auto) (16.0-40.0) % Bracken % (Auto) (0.0-15.0) % Eos % (Auto) (0.0-7.0) % Baso % (Auto) (0.0-1.5) % Neut # (Auto) (1.4-5.7) K/uL Lymph # (Auto) (0.6-2.4) K/uL Bracken # (Auto) (0.0-0.8) K/uL Eos # (Auto) (0.0-0.7) K/uL Baso # (Auto) (0.0-0.1) K/uL Nucleated RBC % /100WBC Nucleated RBCs # K/uL Lactate 1.9 (0.20-2.00) mmol/L Sodium (136-145) mmol/L Potassium (3.5-5.1) mmol/L Chloride (98-107) mmol/L Carbon Dioxide (21.0-32.0) mmol/L BUN (7.0-18.0) mg/dL Creatinine (0.6-1.0) mg/dL Est Cr Clr Drug Dosing mL/min Estimated GFR (MDRD) ml/min Glucose (74-106) mg/dL Calcium (8.5-10.1) mg/dL Total Bilirubin (0.2-1.0) mg/dL AST (15-37) IU/L ALT (14-63) IU/L Alkaline Phosphatase (46-116) U/L C-Reactive Protein 0.60 (0.00-0.90) mg/dL Total Protein (6.4-8.2) g/dL Albumin (3.4-5.0) g/dL Globulin (2.6-4.0) g/dL Albumin/Globulin Ratio (0.9-1.6) Urine Color DARK YELLOW Urine Appearance SLT CLOUDY Urine pH 5.0 (5.0-8.0) Ur Specific [place] >= 1.030 (1.001-1.035) Urine Protein TRACE H (NEGATIVE) mg/dL Urine Glucose (UA) NEGATIVE (NEGATIVE) mg/dL Urine Ketones NEGATIVE (NEGATIVE) mg/dL Urine Occult Blood TRACE-LYSED H (NEGATIVE) Urine Nitrite NEGATIVE (NEGATIVE) Urine Bilirubin NEGATIVE (NEGATIVE) Urine Urobilinogen 0.2 (<2.0) EU/dL Ur Leukocyte Esterase SMALL H (NEGATIVE) Urine RBC 0-2 (0-2/HPF) Urine WBC 7-9 (0-5/HPF) Ur Epithelial Cells FEW (NONE-FEW) Calcium Oxalate Crystal MODERATE (NEGATIVE) Urine Bacteria FEW (NEGATIVE) Urine Mucus LIGHT (NONE-MOD) Result Diagrams: 07/26/19 04:10 07/26/19 04:10 Sepsis Event Note - Evaluation Sepsis Screening Result: No Definite Risk - Focused Exam Vital Signs: Vital Signs Temp Pulse Resp BP Pulse Ox 07/26/19 08:15 79 16 112/70 96 07/26/19 06:35 83 16 133/79 93 L 07/26/19 05:00 96.6 F 79 16 135/56 L 92 L 07/26/19 03:17 95.2 F L 73 20 180/85 H 93 L Date Exam was Performed: 07/26/19 Time Exam was Performed: 12:01 - Problem List (1) Parastomal hernia SNOMED Code(s): 253723722 ICD Code: K43.5 - PARASTOMAL HERNIA WITHOUT OBSTRUCTION OR GANGRENE Status : Acute Current Visit: Yes Qualifiers: Obstruction and gangrene presence: with obstruction but without gangrene Qualified Code(s): K43.3 - Parastomal hernia with obstruction, without gangrene (2) Partial small bowel obstruction SNOMED Code(s): 688770650 ICD Code: K56.600 - PARTIAL INTESTINAL OBSTRUCTION, UNSPECIFIED TO CAUSE Status: Acute Current Visit: Yes (3) GERD (gastroesophageal reflux disease) SNOMED Code(s): 895824187 ICD Code: K21.9 - GASTRO-ESOPHAGEAL REFLUX DISEASE WITHOUT ESOPHAGITIS Status: Chronic Current Visit: No Qualifiers: Esophagitis presence: esophagitis presence not specified Qualified Code(s) : K21.9 - Gastro-esophageal reflux disease without esophagitis (4) History of Crohn's disease SNOMED Code(s): 331082973896893 ICD Code: Z87.19 - PERSONAL HISTORY OF OTHER DISEASES OF THE DIGESTIVE SYSTEM Status: Chronic Priority: High Current Visit: No (5) Obesity, Class III, BMI 40-49.9 (morbid obesity) SNOMED Code(s): 199926575, 134917312, 46648642738672 ICD Code: E66.01 - MORBID (SEVERE) OBESITY DUE TO EXCESS CALORIES Status: Chronic Priority: Medium Current Visit: No (6) Presence of ileostomy SNOMED Code(s): 430802719 ICD Code: Z93.2 - ILEOSTOMY STATUS Status: Chronic Priority: Medium Current Visit: No Problem List Initiated/Reviewed/Updated: Yes Orders Last 24hrs: Active Orders 24 hr Category Date Time Status Patient Status [ADT] Stat ADT 07/26/19 06:15 Active Antiembolic Devices [RC] PER UNIT ROUTINE Care 07/26/19 08:20 Active Height and Weight [RC] DAILY Care 07/26/19 08:18 Active Intake and Output [RC] QSHIFT Care 07/26/19 08:18 Active Notify Provider Consults [RC] ASDIRECTED Care 07/26/19 06:06 Active Oxygen Therapy [RC] PRN Care 07/26/19 08:18 Active Up With Assistance [RC] ASDIRECTED Care 07/26/19 08:18 Active VTE/DVT Education [RC] PER UNIT ROUTINE Care 07/26/19 08:18 Active Vital Signs [RC] Q4H Care 07/26/19 08:18 Active Consult to Physician [CONS] Stat Cons 07/26/19 06:06 Active Nothing per Oral Now Diet [DIET] Diet 07/26/19 Breakfast Active CBC WITH AUTO DIFF [HEME] AM Lab 07/27/19 05:11 Ordered COMPREHENSIVE METABOLIC PN,CMP [CHEM] AM Lab 07/27/19 05:11 Ordered CULTURE URINE [RM] Stat Lab 07/26/19 06:30 Received Lactated Ringers [Ringers, Lactated] 1,000 ml Med 07/26/19 08:30 Active IV Q8H Morphine Med 07/26/19 08:20 Pending 2 mg IVPUSH Q2H PRN Ondansetron [Zofran] Med 07/26/19 08:18 Active 4 mg IVPUSH Q4H PRN Sodium Chloride 0.9% [Saline Flush] Med 07/26/19 03:28 Active 10 ml FLUSH ASDIRECTED PRN Sodium Chloride 0.9% [Saline Flush] Med 07/26/19 03:28 Active 2.5 ml FLUSH ASDIRECTED PRN Saline Lock Insert [OM.PC] Stat Oth 07/26/19 03:28 Ordered Sequential Compression Device [OM.PC] Per Unit Routine Oth 07/26/19 08:19 Ordered Resuscitation Status Routine Resus Stat 07/26/19 08:18 Ordered Medication Orders Lactated Ringer's (Ringers, Lactated) 1,000 mls @ 125 mls/hr IV Q8H CARTER Last Admin: 07/26/19 08:36 Dose: 125 mls/hr Morphine Sulfate (Morphine) 2 mg IVPUSH Q2H PRN PRN Reason: Pain Ondansetron HCl (Zofran) 4 mg IVPUSH Q4H PRN PRN Reason: Nausea Sodium Chloride (Saline Flush) 10 ml FLUSH ASDIRECTED PRN PRN Reason: Keep Vein Open Sodium Chloride (Saline Flush) 2.5 ml FLUSH ASDIRECTED PRN PRN Reason: Keep Vein Open Assessment/Plan Comment:: This 69 year old female admitted with small bowel obstruction 1. SBO: Conservative therapy for now. Lactic acid improved with IVFs, hemodynamically stable. Bowel rest. Dr Vance consulted. Morphine for pain and Zofran PRN nausea 2. L adnexal mass: Informed regarding this, has hx of cysts. Recommended follow up with Dr Bonilla. 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
[2019-07-26] MEDS: Morphine 2 MG/ML Syringe IVPUSH PRN ×2 (09:41→16:57)
--- NOTE | 2019-07-26 13:39 | PCM.CONS ---
H&P History of Present Illness - General Date of Service: 07/26/19 Admit Problem/Dx: Admission Diagnosis/Problem Admission Diagnosis/Problem Intestinal obstruction Source of Information: Patient History Limitations: Reports: No Limitations - History of Present Illness Initial Comments - Free Text/Narative: Patient is a 69-year-old female who presented to the emergency room earlier this morning complaining again of abdominal pain. She does have a history of multiply recurrent small bowel obstructions. She has had her large intestine removed at approximately 12 inches of small bowel for Crohn's disease. 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 She states she was doing a lot of heavy work and painting the other day and thinks this contributed to it. After arriving in the emergency room. She has noticed increased output through her stoma. Symptom Onset Date: 07/25/19 Duration of Symptoms: Reports: Day(s): Location: Reports: Abdomen Quality: Reports: Pressure, Same as Previous Episode, Throbbing Severity: Moderate Improves with: Reports: Rest Worsens with: Reports: None Context: Reports: Sick Contact Associated Symptoms: Reports: Loss of Appetite. Denies: Confusion, Chest Pain, Malaise, Nausea/Vomiting Left Abdomen Pain Score (Numeric/FACES): 10 - Related Data Allergies/Adverse Reactions: Allergies Allergy/AdvReac Type Severity Reaction Status Date / Time codeine Allergy Hives Verified 07/26/19 08:56 nickel Allergy Rash Verified 07/26/19 08:56 Home Medications: Home Meds ClonazePAM [KlonoPIN] 0.5 mg PO QAM PRN 05/03/15 [History] Omeprazole 20 mg PO DAILY 05/03/15 [History] atorvaSTATin [Lipitor] 20 mg PO BEDTIME 05/03/15 [History] azaTHIOprine [Azathioprine] 50 mg PO TID 05/03/15 [History] Cholecalciferol (Vitamin D3) [Vitamin D3] 1,000 units PO DAILY 05/01/18 [History ] Chromium Picolinate 1,000 mcg PO DAILY 05/01/18 [History] Cyanocobalamin (Vitamin B12) [Vitamin B12] 3,000 mcg PO DAILY 05/01/18 [History] Mv-Min/Iron/Folic/Calcium/Vitk [Women's Multivitamin Tablet] 1 tab PO DAILY 03/10 [History] Ubidecarenone [Coq-10] 200 mg PO DAILY 05/01/18 [History] Fish Oil/[place]-3 Fatty Acids [Fish Oil] 1,000 mg PO DAILY 01/22/19 [History] Ibuprofen 200 mg PO Q6H PRN 03/03/19 [History] levonorgestreL [Mirena] 1 unit VAG ONETIME 03/03/19 [History] Cranberry Extract/Vit C [Azo Cranberry Softgel] 2 cap PO DAILY 07/26/19 [History ] Phentermine HCl 37.5 mg PO DAILY 07/26/19 [History] Past Medical History HEENT History: Reports: Cataract, Other (See Below) Other HEENT History: wears glasses Cardiovascular History: Reports: High Cholesterol Other Cardiovascular History: takes HCTZ as needed for swelling Respiratory History: Reports: None Other Respiratory History: is scheduled for a sleep study Gastrointestinal History: Reports: Bowel Obstruction, Hiatal Hernia, Inflammatory Bowel Disease Other Gastrointestinal History: hx of Crohns disease Genitourinary History: Reports: Renal Calculus Other Genitourinary History: hx kidney stones and UTI, fibrocystic breasts, STATISTICAL ANALYST History: Reports: , Therapeutic Other OB/BYN History: ETOP Musculoskeletal History: Reports: Arthritis, Fracture Other Musculoskeletal History: hx of fx wrist and ankle Neurological History: Reports: Migraines, Other (See Below) Other Neuro History: hx of motion sickness Psychiatric History: Reports: Anxiety Other Psychiatric History: Claustrophobia Endocrine/Metabolic History: Reports: Obesity/BMI 30+, Other (See Below) Other Endocrine/Metabolic History: Pre-diabetic Hematologic History: Reports: Blood Transfusion(s) Immunologic History: Reports: Immunosuppression Oncologic (Cancer) History: Reports: Uterine Dermatologic History: Reports: Eczema - Infectious Disease History Infectious Disease History: Reports: Chicken Pox, Shingles - Past Surgical History Head Surgeries/Procedures: Reports: None HEENT Surgical History: Reports: Tonsillectomy GI Surgical History: Reports: Other (See Below) (Total colectomy with RLQ ileostomy.) Female Surgical History: Reports: Breast Biopsy, Cystectomy, D&C Musculoskeletal Surgical History: Reports: Other (See Below) Other Musculoskeletal Surgeries/Procedures:: bilateral arm reduction Social & Family History - Family History Family Medical History: Noncontributory - Tobacco Use Smoking Status *Q: Former Smoker Years of Tobacco use: 30 Used Tobacco, but Quit: Yes Month/Year Tobacco Last Used: 1999 Second Hand Smoke Exposure: No - Caffeine Use Caffeine Use: Reports: None - Recreational Drug Use Recreational Drug Use: No H&P Review of Systems - Review of Systems: Review Of Systems: See Below General: Denies: Fever, Chills, Malaise, Weakness, Fatigue HEENT: Reports: No Symptoms Pulmonary: Denies: Shortness of Breath, Wheezing, Pleuritic Chest Pain Cardiovascular: Denies: Chest Pain, Palpitations Gastrointestinal: Reports: Abdominal Pain, Anorexia, Diarrhea, Decreased Appetite, Flatus. Denies: Black Stool, Bloody Stool, Constipation, Difficulty Swallowing, Distension, Melena, Nausea, Vomiting Genitourinary: Denies: Dysuria, Frequency, Burning Musculoskeletal: Reports: No Symptoms, Neck Pain Skin: Denies: Cyanosis, Jaundice Psychiatric: Denies: Confusion, Depression, Mood Lability, Anxiety Neurological: Reports: No Symptoms Hematologic/Lymphatic: Reports: No Symptoms Immunologic: Reports: No Symptoms Exam - Exam Exam: See Below - Vital Signs Vital Signs: Last Vital Signs Temp 96.7 F 07/26/19 11:52 Pulse 72 07/26/19 11:52 Resp 16 07/26/19 11:52 BP 128/59 L 07/26/19 11:52 Pulse Ox 97 07/26/19 11:52 Weight: 250 lb - Exam General: Alert, Oriented, Cooperative, Mild Distress HEENT: Conjunctiva Clear, EACs Clear, Pupils Equal, Pupils Reactive. No: Scleral Icterus Neck: Supple, Trachea Midline Lungs: Clear to Auscultation, Normal Respiratory Effort Cardiovascular: Regular Rate, Regular Rhythm, Normal S1, Normal S2. No: Tachycardia GI/Abdominal Exam: Normal Bowel Sounds, Soft, Non-Tender, No Distention, No Mass. No: Guarding, Rigid, Rebound (Female) Exam: Deferred Rectal (Female) Exam: Deferred Back Exam: Normal Inspection Peripheral Pulses: 4+: Posterior Tibial (L), Posterior Tibial (R), Dorsalis Pedis (L), Dorsalis Pedis (R) Skin: Warm, Dry, Intact Neurological: Cranial Nerves Intact, Reflexes Equal Bilateral Neuro Extensive - Mental Status: Alert, Oriented x3, Normal Mood/Affect, Normal Cognition Neuro Extensive - Motor, Sensory, Reflexes: CN II-XII Intact, Normal Gait, Normal Reflexes Psychiatric: Alert, Normal Affect, Normal Mood - Patient Data Lab Results Last 24 hrs: Laboratory Results - last 24 hr 07/26/19 07/26/19 07/26/19 Range/Units 03:50 04:10 04:10 WBC 10.33 (4.0-11.0) K/uL RBC 5.07 (4.30-5.90) M/uL Hgb 17.2 H (12.0-16.0) g/dL Hct 51.1 H (36.0-46.0) % MCV 100.8 H (80.0-98.0) fL MCH 33.9 H (27.0-32.0) pg MCHC 33.7 (31.0-37.0) g/dL RDW Std Deviation 53.5 (28.0-62.0) fl RDW Coeff of Jamia 15 (11.0-15.0) % Plt Count 292 (150-400) K/uL MPV 10.20 (7.40-12.00) fL Neut % (Auto) 89.5 H (48.0-80.0) % Lymph % (Auto) 3.0 L (16.0-40.0) % [place] % (Auto) 6.8 (0.0-15.0) % Eos % (Auto) 0.4 (0.0-7.0) % Baso % (Auto) 0.3 (0.0-1.5) % Neut # (Auto) 9.3 H (1.4-5.7) K/uL Lymph # (Auto) 0.3 L (0.6-2.4) K/uL [place] # (Auto) 0.7 (0.0-0.8) K/uL Eos # (Auto) 0.0 (0.0-0.7) K/uL Baso # (Auto) 0.0 (0.0-0.1) K/uL Nucleated RBC % 0.0 /100WBC Nucleated RBCs # 0 K/uL Lactate 2.1 H* (0.20-2.00) mmol/L Sodium 146 H (136-145) mmol/L Potassium 3.6 (3.5-5.1) mmol/L Chloride 107 (98-107) mmol/L Carbon Dioxide 32.5 H (21.0-32.0) mmol/L BUN 11 (7.0-18.0) mg/dL Creatinine 1.1 H (0.6-1.0) mg/dL Est Cr Clr Drug Dosing 42.85 mL/min Estimated GFR (MDRD) 49.5 ml/min Glucose 138 H (74-106) mg/dL Calcium 9.4 (8.5-10.1) mg/dL Total Bilirubin 2.4 H (0.2-1.0) mg/dL AST 24 (15-37) IU/L ALT 26 (14-63) IU/L Alkaline Phosphatase 113 (46-116) U/L C-Reactive Protein (0.00-0.90) mg/dL Total Protein 8.5 H (6.4-8.2) g/dL Albumin 4.0 (3.4-5.0) g/dL Globulin 4.5 H (2.6-4.0) g/dL Albumin/Globulin Ratio 0.9 (0.9-1.6) Urine Color Urine Appearance Urine pH (5.0-8.0) Ur Specific [place] (1.001-1.035) Urine Protein (NEGATIVE) mg/dL Urine Glucose (UA) (NEGATIVE) mg/dL Urine Ketones (NEGATIVE) mg/dL Urine Occult Blood (NEGATIVE) Urine Nitrite (NEGATIVE) Urine Bilirubin (NEGATIVE) Urine Urobilinogen (<2.0) EU/dL Ur Leukocyte Esterase (NEGATIVE) Urine RBC (0-2/HPF) Urine WBC (0-5/HPF) Ur Epithelial Cells (NONE-FEW) Calcium Oxalate Crystal (NEGATIVE) Urine Bacteria (NEGATIVE) Urine Mucus (NONE-MOD) 07/26/19 07/26/19 07/26/19 Range/Units 04:10 06:30 08:35 WBC (4.0-11.0) K/uL RBC (4.30-5.90) M/uL Hgb (12.0-16.0) g/dL Hct (36.0-46.0) % MCV (80.0-98.0) fL MCH (27.0-32.0) pg MCHC (31.0-37.0) g/dL RDW Std Deviation (28.0-62.0) fl RDW Coeff of Jamia (11.0-15.0) % Plt Count (150-400) K/uL MPV (7.40-12.00) fL Neut % (Auto) (48.0-80.0) % Lymph % (Auto) (16.0-40.0) % [place] % (Auto) (0.0-15.0) % Eos % (Auto) (0.0-7.0) % Baso % (Auto) (0.0-1.5) % Neut # (Auto) (1.4-5.7) K/uL Lymph # (Auto) (0.6-2.4) K/uL [place] # (Auto) (0.0-0.8) K/uL Eos # (Auto) (0.0-0.7) K/uL Baso # (Auto) (0.0-0.1) K/uL Nucleated RBC % /100WBC Nucleated RBCs # K/uL Lactate 1.9 (0.20-2.00) mmol/L Sodium (136-145) mmol/L Potassium (3.5-5.1) mmol/L Chloride (98-107) mmol/L Carbon Dioxide (21.0-32.0) mmol/L BUN (7.0-18.0) mg/dL Creatinine (0.6-1.0) mg/dL Est Cr Clr Drug Dosing mL/min Estimated GFR (MDRD) ml/min Glucose (74-106) mg/dL Calcium (8.5-10.1) mg/dL Total Bilirubin (0.2-1.0) mg/dL AST (15-37) IU/L ALT (14-63) IU/L Alkaline Phosphatase (46-116) U/L C-Reactive Protein 0.60 (0.00-0.90) mg/dL Total Protein (6.4-8.2) g/dL Albumin (3.4-5.0) g/dL Globulin (2.6-4.0) g/dL Albumin/Globulin Ratio (0.9-1.6) Urine Color DARK YELLOW Urine Appearance SLT CLOUDY Urine pH 5.0 (5.0-8.0) Ur Specific [place] >= 1.030 (1.001-1.035) Urine Protein TRACE H (NEGATIVE) mg/dL Urine Glucose (UA) NEGATIVE (NEGATIVE) mg/dL Urine Ketones NEGATIVE (NEGATIVE) mg/dL Urine Occult Blood TRACE-LYSED H (NEGATIVE) Urine Nitrite NEGATIVE (NEGATIVE) Urine Bilirubin NEGATIVE (NEGATIVE) Urine Urobilinogen 0.2 (<2.0) EU/dL Ur Leukocyte Esterase SMALL H (NEGATIVE) Urine RBC 0-2 (0-2/HPF) Urine WBC 7-9 (0-5/HPF) Ur Epithelial Cells FEW (NONE-FEW) Calcium Oxalate Crystal MODERATE (NEGATIVE) Urine Bacteria FEW (NEGATIVE) Urine Mucus LIGHT (NONE-MOD) Result Diagrams: 07/26/19 04:10 07/26/19 04:10 Sepsis Event Note - Evaluation Sepsis Screening Result: No Definite Risk - Focused Exam Vital Signs: Vital Signs Temp Pulse Resp BP Pulse Ox 07/26/19 11:52 96.7 F 72 16 128/59 L 97 07/26/19 08:20 98.4 F 76 19 106/57 L 96 07/26/19 08:15 79 16 112/70 96 07/26/19 06:35 83 16 133/79 93 L 07/26/19 05:00 96.6 F 79 16 135/56 L 92 L 07/26/19 03:17 95.2 F L 73 20 180/85 H 93 L Date Exam was Performed: 07/26/19 Time Exam was Performed: 13:34 Consult PN Assessment/Plan Procedures: Procedures ASSAY OF CK (CPK) (05/03/15) ASSAY OF LIPASE (01/22/19) ASSAY OF MAGNESIUM (05/03/15) ASSAY OF SERUM POTASSIUM (04/19/16) ASSAY OF TROPONIN QUANT (01/22/19) ASSAY THYROID STIM HORMONE (08/15/17) BILIRUBIN DIRECT (08/15/17) BILIRUBIN TOTAL (08/15/17) BLOOD CULTURE FOR BACTERIA (01/22/19) JAEL DNA DIR PROBE (10/05/18) CHEST X-RAY 1 VIEW FRONTAL (05/03/15) CHORIONIC GONADOTROPIN ASSAY (03/08/19) COMPLETE CBC AUTOMATED (03/08/19) COMPLETE CBC W/AUTO DIFF WBC (01/22/19) COMPREHEN METABOLIC PANEL (01/22/19) CREATINE MB FRACTION (05/03/15) CT ABD & PELV W/CONTRAST (07/19/16) CT ABD & PELVIS W/O CONTRAST (01/22/19) ECHO EXAM OF ABDOMEN (05/03/15) ELECTROCARDIOGRAM TRACING (01/22/19) EMERGENCY DEPT VISIT (01/22/19) EMERGENCY DEPT VISIT (08/08/17) EMERGENCY DEPT VISIT (05/03/15) EXCISE EXCESSIVE SKIN ARM (05/06/18) CHUNG VAG DNA DIR PROBE (10/05/18) HYDRATE IV INFUSION ADD-ON (01/22/19) HYSTEROSCOPY BIOPSY (03/08/19) INSERT INTRAUTERINE DEVICE (09/09/16) LIPID PANEL (08/15/17) METABOLIC PANEL TOTAL CA (07/28/15) POLYSOM 6/> YRS 4/> CRISTIAN (04/14/19) PROTHROMBIN TIME (01/22/19) ROUTINE VENIPUNCTURE (03/08/19) THER/PROPH/DIAG INJ IV PUSH (01/22/19) TISSUE EXAM BY PATHOLOGIST (03/08/19) TRICHOMONAS VAGIN DIR PROBE (10/05/18) TX/PRO/DX INJ NEW DRUG ADDON (01/22/19) TX/PRO/DX INJ SAME DRUG FARM CONSULTANT (01/22/19) URINALYSIS AUTO W/O SCOPE (01/22/19) URINALYSIS AUTO W/SCOPE (01/22/19) URINE CULTURE/COLONY COUNT (01/22/19) VITAMIN B-12 (09/25/16) X-RAY EXAM CHEST 1 VIEW (01/22/19) (1) Parastomal hernia SNOMED Code(s): 082731064 Code(s): K43.5 - PARASTOMAL HERNIA WITHOUT OBSTRUCTION OR GANGRENE Current Visit: Yes Qualifiers: Obstruction and gangrene presence: with obstruction but without gangrene Qualified Code(s): K43.3 - Parastomal hernia with obstruction, without gangrene (2) Partial small bowel obstruction SNOMED Code(s): 123874115 Code(s): K56.600 - PARTIAL INTESTINAL OBSTRUCTION, UNSPECIFIED TO CAUSE Priority: Medium Current Visit: Yes (3) Abdominal pain SNOMED Code(s): 08363085 Code(s): R10.9 - UNSPECIFIED ABDOMINAL PAIN Priority: High Current Visit : No Qualifiers: Abdominal location: periumbilical Qualified Code(s): R10.33 - Periumbilical pain Problem List Initiated/Reviewed/Updated: Yes Plan: Patient seen and examined. I think she could be started on clear/full liquids. If she tolerates these w/o N/V or increasing abdominal pain, she could possibly be discharged tomorrow if her dehydration has also resolved.
[2019-07-26] MEDS ORDERED: ClonazePAM 0.5 MG Tab PO PRN (16:36)
[2019-07-26] MEDS ORDERED: atorvaSTATin 20 MG Tab PO SCH (21:00)
[2019-07-27] MEDS: Lactated Ringers 1,000 ML IV SCH ×2 (01:20→09:16)
[2019-07-27 06:51] LABS: BLOOD UREA NITROGEN,BUN 8 mg/dL (7.0-18.0); CARBON DIOXIDE,CO2 26.9 mmol/L (21.0-32.0); CHLORIDE,CL 109 mmol/L (98-107); GLUCOSE RANDOM 100 mg/dL (74-106); POTASSIUM,K 3.9 mmol/L (3.5-5.1); SODIUM,NA 143 mmol/L (136-145)
[2019-07-27] MEDS ORDERED: Omeprazole 20 MG Cap.CR PO SCH (07:30)
[2019-07-27 07:54] VITALS: BP 137/75; PULSE 69
--- NOTE | 2019-07-27 08:26 | PCM.DCSUM1 ---
Discharge Summary - Hospital Course Brief History: This 69 year old female with pmh of extensive abdominal surgeries related to Crohns disease, ileostomy and ventral and parastomal hernias presented to the ED with pain to abdomen that has been there for over 15 hours. She reports the pain started yesterday and she felt like it was like her obstruction shes had in the past and felt she could wait it out at home. The pain progressively worsened and she presented. She denies vomiting, mild nausea. She reports pain was controlled in the ED with Morphine and she is feeling better. She reports very liquid and high amount of output in her ileostomy since arrival. This liquid of stool is not quite her normal. She denies fevers or chills. No chest pain or SOB. No urinary concerns. She denies bloody stools. She reports 10+ surgical operations on her abdomen. She reports she was transferred for similar reason a few months ago and i nMiot they did conservative treatment, with follow up as outpatient, but she was unable to make this appointment. She reports she is unable to drive to [place] and was waiting for traveling surgeon to return to [facility]. In the ED no leukocytosis noted, hgb 17.2, lactic acid 2.1. Na 146, bicarb 32.5, BUN 11 Cr 1.1, and Bilirubin 2.4. CT of abdomen reveals small bowel obsturction in RLQ, parastomal hernia containing loop of small bowel, likely cause of obstruction. CT also mentioned left adenexal cystic lesion measuring 3.3 cm with IUD in place. She was given IVF bolus for elevated lactic acid, as well as Morphine and zofran. Dr Vance contact in ED regrading CT findings, recommended admission to Hospitalist team and he would consult and see patient. Diagnosis: Stroke: No - Discharge Data Discharge Date: 07/27/19 Discharge Disposition: Home, Self-Care 01 Condition: Stable - Referral to Home Health Primary Care Physician: Gail Sutherland, DO - Discharge Diagnosis/Problem(s) (1) Parastomal hernia SNOMED Code(s): 715425517 ICD Code: K43.5 - PARASTOMAL HERNIA WITHOUT OBSTRUCTION OR GANGRENE Status : Acute Qualifiers: Obstruction and gangrene presence: with obstruction but without gangrene Qualified Code(s): K43.3 - Parastomal hernia with obstruction, without gangrene (2) Partial small bowel obstruction SNOMED Code(s): 772625153 ICD Code: K56.600 - PARTIAL INTESTINAL OBSTRUCTION, UNSPECIFIED TO CAUSE Status: Acute Priority: Medium (3) GERD (gastroesophageal reflux disease) SNOMED Code(s): 431410417 ICD Code: K21.9 - GASTRO-ESOPHAGEAL REFLUX DISEASE WITHOUT ESOPHAGITIS Status: Chronic Qualifiers: Esophagitis presence: esophagitis presence not specified Qualified Code(s) : K21.9 - Gastro-esophageal reflux disease without esophagitis (4) History of Crohn's disease SNOMED Code(s): 032995915937878 ICD Code: Z87.19 - PERSONAL HISTORY OF OTHER DISEASES OF THE DIGESTIVE SYSTEM Status: Chronic Priority: High (5) Obesity, Class III, BMI 40-49.9 (morbid obesity) SNOMED Code(s): 266888305, 404595405, 34592483109340 ICD Code: E66.01 - MORBID (SEVERE) OBESITY DUE TO EXCESS CALORIES Status: Chronic Priority: Medium (6) Presence of ileostomy SNOMED Code(s): 097812640 ICD Code: Z93.2 - ILEOSTOMY STATUS Status: Chronic Priority: Medium - Patient Summary/Data Consults: Consultations 07/26/19 06:06 Consult to Physician [CONS] Stat - Patient Instructions Diet: GI Soft/Low Residue/Low Fiber Activity: As Tolerated, No Strenuous Activities Showering/Bathing: May Shower Notify Provider of: Fever, Increased Pain, Swelling and Redness, Drainage, Nausea and/or Vomiting - Discharge Plan *PRESCRIPTION DRUG MONITORING PROGRAM REVIEWED*: Not Applicable *COPY OF PRESCRIPTION DRUG MONITORING REPORT IN PATIENT JOSE: Not Applicable Home Medications: Home Meds ClonazePAM [KlonoPIN] 0.5 mg PO QAM PRN 05/03/15 [History] Omeprazole 20 mg PO DAILY 05/03/15 [History] atorvaSTATin [Lipitor] 20 mg PO BEDTIME 05/03/15 [History] azaTHIOprine [Azathioprine] 50 mg PO TID 05/03/15 [History] Cholecalciferol (Vitamin D3) [Vitamin D3] 1,000 units PO DAILY 05/01/18 [History ] Chromium Picolinate 1,000 mcg PO DAILY 05/01/18 [History] Cyanocobalamin (Vitamin B12) [Vitamin B12] 3,000 mcg PO DAILY 05/01/18 [History] Mv-Min/Iron/Folic/Calcium/Vitk [Women's Multivitamin Tablet] 1 tab PO DAILY 03/10 [History] Ubidecarenone [Coq-10] 200 mg PO DAILY 05/01/18 [History] Fish Oil/[place]-3 Fatty Acids [Fish Oil] 1,000 mg PO DAILY 01/22/19 [History] Ibuprofen 200 mg PO Q6H PRN 03/03/19 [History] levonorgestreL [Mirena] 1 unit VAG ONETIME 03/03/19 [History] Cranberry Extract/Vit C [Azo Cranberry Softgel] 2 cap PO DAILY 07/26/19 [History ] Phentermine HCl 37.5 mg PO DAILY 07/26/19 [History] Oxygen Therapy Mode: Room Air Patient Handouts: Small Bowel Obstruction, [id number], Low-Fiber Eating Plan Referrals: [facility] [Outside] Ramon Walker MD [Ordering Only Provider] - 08/02/19 2:00 pm - Discharge Summary/Plan Comment DC Time >30 min.: No Discharge Summary/Plan Comment: Admitting Diagnoses: PSBO Parastomal hernia Discharge Diagnoses: PSBO- resolved Padmini was admitted secondary to PSBO and abdominal pain. She was treated conservatively with bowel rest and IVFs. she was given Full liquids overnight and she tolerated these well. Ileostomy continued to have improved output overnight as well. Dr Vance saw patient in the morning today. She was doing well today, abdominal pain cleared to baseline chronic pain. She tolerated soft diet. She is eager for discharge home today. She needs to follow up with Dr Bonilla regarding cystic lesion noted on CT, patient is aware of this. SHe is to keep GI soft diet over next few days the slowly advance to regular diet. She is to return to ED or clinic and follow up with general surgery as outpatient when back in [place] to see about repair of parastomal hernia. - Patient Data Vitals - Most Recent: Last Vital Signs Temp 97.2 F 07/27/19 07:00 Pulse 69 07/27/19 07:00 Resp 15 07/27/19 07:00 BP 137/75 07/27/19 07:00 Pulse Ox 95 07/27/19 07:00 Weight - Most Recent: 113.398 kg I&O - Last 24 hours: Intake & Output 07/26/19 07/27/19 07/27/19 22:59 06:59 14:59 Intake Total 1600 2891 Output Total 1090 500 Balance 510 2161 Lab Results - Last 24 hrs: Laboratory Results - last 24 hr 07/26/19 07/27/19 07/27/19 Range/Units 08:35 05:58 05:58 WBC 3.43 L (4.0-11.0) K/uL RBC 3.90 L (4.30-5.90) M/uL Hgb 13.2 (12.0-16.0) g/dL Hct 39.3 (36.0-46.0) % MCV 100.8 H (80.0-98.0) fL MCH 33.8 H (27.0-32.0) pg MCHC 33.6 (31.0-37.0) g/dL RDW Std Deviation 53.1 (28.0-62.0) fl RDW Coeff of Jamia 15 (11.0-15.0) % Plt Count 200 (150-400) K/uL MPV 10.10 (7.40-12.00) fL Neut % (Auto) 62.6 (48.0-80.0) % Lymph % (Auto) 24.5 (16.0-40.0) % [place] % (Auto) 8.5 (0.0-15.0) % Eos % (Auto) 4.1 (0.0-7.0) % Baso % (Auto) 0.3 (0.0-1.5) % Neut # (Auto) 2.2 (1.4-5.7) K/uL Lymph # (Auto) 0.8 (0.6-2.4) K/uL [place] # (Auto) 0.3 (0.0-0.8) K/uL Eos # (Auto) 0.1 (0.0-0.7) K/uL Baso # (Auto) 0.0 (0.0-0.1) K/uL Nucleated RBC % 0.0 /100WBC Nucleated RBCs # 0 K/uL Lactate 1.9 (0.20-2.00) mmol/L Sodium 143 (136-145) mmol/L Potassium 3.9 (3.5-5.1) mmol/L Chloride 109 H (98-107) mmol/L Carbon Dioxide 26.9 (21.0-32.0) mmol/L BUN 8 (7.0-18.0) mg/dL Creatinine 0.9 (0.6-1.0) mg/dL Est Cr Clr Drug Dosing 52.76 mL/min Estimated GFR (MDRD) > 60.0 ml/min Glucose 100 (74-106) mg/dL Calcium 7.7 L (8.5-10.1) mg/dL Total Bilirubin 2.2 H (0.2-1.0) mg/dL AST 18 (15-37) IU/L ALT 19 (14-63) IU/L Alkaline Phosphatase 69 (46-116) U/L Total Protein 5.9 L (6.4-8.2) g/dL Albumin 2.6 L (3.4-5.0) g/dL Globulin 3.3 (2.6-4.0) g/dL Albumin/Globulin Ratio 0.8 L (0.9-1.6) Med Orders - Current: Current Medications Atorvastatin Calcium (Lipitor) 20 mg PO BEDTIME [facility] Last Admin: 07/26/19 21:15 Dose: 20 mg Azathioprine (Imuran) 50 mg PO TID [facility] Last Admin: 07/27/19 06:49 Dose: 50 mg Clonazepam (Klonopin) 0.5 mg PO QAM PRN PRN Reason: Anxiety Lactated Ringer's (Ringers, Lactated) 1,000 mls @ 125 mls/hr IV Q8H [facility] Last Admin: 07/27/19 01:20 Dose: 125 mls/hr Morphine Sulfate (Morphine) 2 mg IVPUSH Q2H PRN PRN Reason: Pain Last Admin: 07/26/19 16:57 Dose: 2 mg Omeprazole (Omeprazole) 20 mg PO ACBREAKFAST [facility] Last Admin: 07/27/19 06:49 Dose: 20 mg Ondansetron HCl (Zofran) 4 mg IVPUSH Q4H PRN PRN Reason: Nausea Sodium Chloride (Saline Flush) 10 ml FLUSH ASDIRECTED PRN PRN Reason: Keep Vein Open Sodium Chloride (Saline Flush) 2.5 ml FLUSH ASDIRECTED PRN PRN Reason: Keep Vein Open Discontinued Medications Sodium Chloride (Normal Saline) 1,000 mls @ 999 mls/hr IV STAT ONE Stop: 07/26/19 04:28 Last Admin: 07/26/19 03:59 Dose: 999 mls/hr Sodium Chloride (Normal Saline) 1,000 mls @ 150 mls/hr IV ASDIRECTED CARTER Last Admin: 07/26/19 06:31 Dose: 150 mls/hr Iopamidol (Isovue-370 (76%)) 100 ml IVPUSH ONETIME STA Stop: 07/26/19 04:53 Last Admin: 07/26/19 05:05 Dose: 100 ml Morphine Sulfate (Morphine) 4 mg IVPUSH ONETIME ONE Stop: 07/26/19 03:29 Last Admin: 07/26/19 03:59 Dose: 4 mg Ondansetron HCl (Zofran) 4 mg IVPUSH ONETIME ONE Stop: 07/26/19 03:29 Last Admin: 07/26/19 04:00 Dose: 4 mg
--- NOTE | 2019-07-27 11:27 | PCM.CONSN ---
- General Info Date of Service: 07/27/19 Admission Dx/Problem (Free Text): Admission Diagnosis/Problem Admission Diagnosis/Problem Intestinal obstruction Subjective Update: Patient feeling much better today. Tolerated po diet yesterday. Continues to have ostomy output. No increase in pain. Functional Status: Reports: Pain Controlled, Tolerating Diet, Ambulating, Urinating. Denies: New Symptoms - Review of Systems General: Denies: Fever, Weakness, Fatigue HEENT: Reports: No Symptoms Pulmonary: Denies: Shortness of Breath Cardiovascular: Denies: Chest Pain Gastrointestinal: Reports: Abdominal Pain, Flatus. Denies: Constipation, Decreased Appetite, Diarrhea, Difficulty Swallowing, Hematochezia, Melena, Nausea, Vomiting Genitourinary: Denies: Dysuria, Frequency, Burning Musculoskeletal: Reports: No Symptoms Skin: Reports: No Symptoms Neurological: Reports: No Symptoms Psychiatric: Reports: No Symptoms - Patient Data Vitals - Most Recent: Last Vital Signs Temp 97.2 F 07/27/19 07:00 Pulse 69 07/27/19 07:00 Resp 15 07/27/19 07:00 BP 137/75 07/27/19 07:00 Pulse Ox 95 07/27/19 07:00 Weight - Most Recent: 250 lb I&O - Last 24 Hours: Intake & Output 07/26/19 07/27/19 07/27/19 19:59 03:59 11:59 Intake Total 1600 2891 Output Total 1090 500 Balance 510 2391 Lab Results Last 24 Hours: Laboratory Results - last 24 hr 07/27/19 07/27/19 Range/Units 05:58 05:58 WBC 3.43 L (4.0-11.0) K/uL RBC 3.90 L (4.30-5.90) M/uL Hgb 13.2 (12.0-16.0) g/dL Hct 39.3 (36.0-46.0) % MCV 100.8 H (80.0-98.0) fL MCH 33.8 H (27.0-32.0) pg MCHC 33.6 (31.0-37.0) g/dL RDW Std Deviation 53.1 (28.0-62.0) fl RDW Coeff of Jamia 15 (11.0-15.0) % Plt Count 200 (150-400) K/uL MPV 10.10 (7.40-12.00) fL Neut % (Auto) 62.6 (48.0-80.0) % Lymph % (Auto) 24.5 (16.0-40.0) % [place] % (Auto) 8.5 (0.0-15.0) % Eos % (Auto) 4.1 (0.0-7.0) % Baso % (Auto) 0.3 (0.0-1.5) % Neut # (Auto) 2.2 (1.4-5.7) K/uL Lymph # (Auto) 0.8 (0.6-2.4) K/uL [place] # (Auto) 0.3 (0.0-0.8) K/uL Eos # (Auto) 0.1 (0.0-0.7) K/uL Baso # (Auto) 0.0 (0.0-0.1) K/uL Nucleated RBC % 0.0 /100WBC Nucleated RBCs # 0 K/uL Sodium 143 (136-145) mmol/L Potassium 3.9 (3.5-5.1) mmol/L Chloride 109 H (98-107) mmol/L Carbon Dioxide 26.9 (21.0-32.0) mmol/L BUN 8 (7.0-18.0) mg/dL Creatinine 0.9 (0.6-1.0) mg/dL Est Cr Clr Drug Dosing 52.76 mL/min Estimated GFR (MDRD) > 60.0 ml/min Glucose 100 (74-106) mg/dL Calcium 7.7 L (8.5-10.1) mg/dL Total Bilirubin 2.2 H (0.2-1.0) mg/dL AST 18 (15-37) IU/L ALT 19 (14-63) IU/L Alkaline Phosphatase 69 (46-116) U/L Total Protein 5.9 L (6.4-8.2) g/dL Albumin 2.6 L (3.4-5.0) g/dL Globulin 3.3 (2.6-4.0) g/dL Albumin/Globulin Ratio 0.8 L (0.9-1.6) Med Orders - Current: Current Medications Discontinued Medications Atorvastatin Calcium (Lipitor) 20 mg PO BEDTIME CARTER Last Admin: 07/26/19 21:15 Dose: 20 mg Azathioprine (Imuran) 50 mg PO TID [facility] Last Admin: 07/27/19 06:49 Dose: 50 mg Clonazepam (Klonopin) 0.5 mg PO QAM PRN PRN Reason: Anxiety Sodium Chloride (Normal Saline) 1,000 mls @ 999 mls/hr IV STAT ONE Stop: 07/26/19 04:28 Last Admin: 07/26/19 03:59 Dose: 999 mls/hr Sodium Chloride (Normal Saline) 1,000 mls @ 150 mls/hr IV ASDIRECTED [facility] Last Admin: 07/26/19 06:31 Dose: 150 mls/hr Lactated Ringer's (Ringers, Lactated) 1,000 mls @ 125 mls/hr IV Q8H [facility] Last Admin: 07/27/19 09:16 Dose: Not Given Iopamidol (Isovue-370 (76%)) 100 ml IVPUSH ONETIME STA Stop: 07/26/19 04:53 Last Admin: 07/26/19 05:05 Dose: 100 ml Morphine Sulfate (Morphine) 4 mg IVPUSH ONETIME ONE Stop: 07/26/19 03:29 Last Admin: 07/26/19 03:59 Dose: 4 mg Morphine Sulfate (Morphine) 2 mg IVPUSH Q2H PRN PRN Reason: Pain Last Admin: 07/26/19 16:57 Dose: 2 mg Omeprazole (Omeprazole) 20 mg PO ACBREAKFAST [facility] Last Admin: 07/27/19 06:49 Dose: 20 mg Ondansetron HCl (Zofran) 4 mg IVPUSH ONETIME ONE Stop: 07/26/19 03:29 Last Admin: 07/26/19 04:00 Dose: 4 mg Ondansetron HCl (Zofran) 4 mg IVPUSH Q4H PRN PRN Reason: Nausea Sodium Chloride (Saline Flush) 10 ml FLUSH ASDIRECTED PRN PRN Reason: Keep Vein Open Sodium Chloride (Saline Flush) 2.5 ml FLUSH ASDIRECTED PRN PRN Reason: Keep Vein Open - Exam General: Alert, Oriented, Cooperative, No Acute Distress HEENT: Pupils Equal, Pupils Reactive Neck: Supple Lungs: Clear to Auscultation, Normal Respiratory Effort Cardiovascular: Regular Rate, Regular Rhythm GI/Abdominal Exam: Normal Bowel Sounds, Soft, Non-Tender, No Distention. No: Guarding, Rigid, Rebound (Female) Exam: Deferred Back Exam: Normal Inspection Extremities: Normal Inspection, Normal Range of Motion, Non-Tender Peripheral Pulses: 3+: Posterior Tibial (L), Posterior Tibial (R), Dorsalis Pedis (L), Dorsalis Pedis (R) Skin: Warm, Dry, Intact Neurological: No New Focal Deficit Psy/Mental Status: Alert, Normal Affect, Normal Mood Sepsis Event Note - Evaluation Sepsis Screening Result: No Definite Risk - Focused Exam Vital Signs: Vital Signs Temp Pulse Resp BP Pulse Ox 07/27/19 07:00 97.2 F 69 15 137/75 95 07/27/19 03:36 97.1 F 81 16 111/55 L 91 L 07/27/19 00:00 97.1 F 71 17 118/59 L 95 Date Exam was Performed: 07/27/19 Time Exam was Performed: 11:24 Consult PN Assessment/Plan Procedures: Procedures ASSAY OF CK (CPK) (05/03/15) ASSAY OF LIPASE (01/22/19) ASSAY OF MAGNESIUM (05/03/15) ASSAY OF SERUM POTASSIUM (04/19/16) ASSAY OF TROPONIN QUANT (01/22/19) ASSAY THYROID STIM HORMONE (08/15/17) BILIRUBIN DIRECT (08/15/17) BILIRUBIN TOTAL (08/15/17) BLOOD CULTURE FOR BACTERIA (01/22/19) JAEL DNA DIR PROBE (10/05/18) CHEST X-RAY 1 VIEW FRONTAL (05/03/15) CHORIONIC GONADOTROPIN ASSAY (03/08/19) COMPLETE CBC AUTOMATED (03/08/19) COMPLETE CBC W/AUTO DIFF WBC (01/22/19) COMPREHEN METABOLIC PANEL (01/22/19) CREATINE MB FRACTION (05/03/15) CT ABD & PELV W/CONTRAST (07/19/16) CT ABD & PELVIS W/O CONTRAST (01/22/19) ECHO EXAM OF ABDOMEN (05/03/15) ELECTROCARDIOGRAM TRACING (01/22/19) EMERGENCY DEPT VISIT (01/22/19) EMERGENCY DEPT VISIT (08/08/17) EMERGENCY DEPT VISIT (05/03/15) EXCISE EXCESSIVE SKIN ARM (05/06/18) JULIET VAG DNA DIR PROBE (10/05/18) HYDRATE IV INFUSION ADD-ON (01/22/19) HYSTEROSCOPY BIOPSY (03/08/19) INSERT INTRAUTERINE DEVICE (09/09/16) LIPID PANEL (08/15/17) METABOLIC PANEL TOTAL CA (07/28/15) POLYSOM 6/> YRS 4/> CRISTIAN (04/14/19) PROTHROMBIN TIME (01/22/19) ROUTINE VENIPUNCTURE (03/08/19) THER/PROPH/DIAG INJ IV PUSH (01/22/19) TISSUE EXAM BY PATHOLOGIST (03/08/19) TRICHOMONAS VAGIN DIR PROBE (10/05/18) TX/PRO/DX INJ NEW DRUG ADDON (01/22/19) TX/PRO/DX INJ SAME DRUG PRODUCTION CONTROLLER (01/22/19) URINALYSIS AUTO W/O SCOPE (01/22/19) URINALYSIS AUTO W/SCOPE (01/22/19) URINE CULTURE/COLONY COUNT (01/22/19) VITAMIN B-12 (09/25/16) X-RAY EXAM CHEST 1 VIEW (01/22/19) (1) Parastomal hernia SNOMED Code(s): 839247827 Code(s): K43.5 - PARASTOMAL HERNIA WITHOUT OBSTRUCTION OR GANGRENE Qualifiers: Obstruction and gangrene presence: with obstruction but without gangrene Qualified Code(s): K43.3 - Parastomal hernia with obstruction, without gangrene (2) Partial small bowel obstruction SNOMED Code(s): 889128903 Code(s): K56.600 - PARTIAL INTESTINAL OBSTRUCTION, UNSPECIFIED TO CAUSE Priority: Medium (3) Abdominal pain SNOMED Code(s): 64014581 Code(s): R10.9 - UNSPECIFIED ABDOMINAL PAIN Priority: High Qualifiers: Abdominal location: periumbilical Qualified Code(s): R10.33 - Periumbilical pain Problem List Initiated/Reviewed/Updated: Yes Plan: Patient is doing much better and back to her baseline. I feel it is safe for her to go home--as discussed earlier today with hospitalist team.
== END 2019-07-27 10:45 | disposition home or self-care (01) ==
LOC: MW.ED 03:07 → MW.MS 06:15
PROVIDERS: ADMIT Internal Medicine; ATTEND Internal Medicine
DX: K56.600 Partial intestinal obstruction, unspecified as to cause (principal); K43.3 Parastomal hernia with obstruction, without gangrene; K21.9 Gastro-esophageal reflux disease without esophagitis; N83.8 Other noninflammatory disorders of ovary, fallopian tube and broad ligament; E78.00 Pure hypercholesterolemia, unspecified; K50.90 Crohn's disease, unspecified, without complications; M19.90 Unspecified osteoarthritis, unspecified site; G43.909 Migraine, unspecified, not intractable, without status migrainosus; E66.01 Morbid (severe) obesity due to excess calories; Z87.891 Personal history of nicotine dependence; Z97.5 Presence of (intrauterine) contraceptive device; Z87.19 Personal history of other diseases of the digestive system; Z68.41 Body mass index [BMI] 40.0-44.9, adult; Z93.2 Ileostomy status; Z98.890 Other specified postprocedural states; Z79.899 Other long term (current) drug therapy; Z79.3 Long term (current) use of hormonal contraceptives; Z88.5 Allergy status to narcotic agent; Z91.048 Other nonmedicinal substance allergy status
CPT/HCPCS: 36415; 74177; 80053; 81001; 83605; 85025; 86140; 87086; A9270; J2270; J2405; J7030; J7120; J7500; Q9967; 96361; 96374; 96375; 96376; 99285-25; G0378

== ENCOUNTER 2020-09-29 08:11 | Day surgery (SDC) | payer MEDICARE, BC ==
[~2020-09-29 08:11] MED LIST changes: +Dexamethasone 4 MG/ML 5 ML MDV ONE; -Lactated Ringers 1,000 ML IV SCH; +Midazolam 1 MG/ML 2 ML SDV ONE; +Ondansetron 4 MG/2 ML SDV ONE; +Propofol 200 MG/20 ML SDV ONE; +fentaNYL 100 MCG/2 ML SDV ONE
--- NOTE | 2020-09-29 08:54 | PCM.PREANE ---
Preanesthetic Assessment - Anesthesia/Transfusion/Family Hx Anesthesia History: Prior Anesthesia Reaction Type of Anesthesia Reaction: Other (see below) Other Type of Anesthesia Reaction Comment: sleepy and snoring after arm reduction, kept additional 8 hours after outpt Family History of Anesthesia Reaction: No Transfusion History: Prior Transfusion Without Reaction Intubation History: Unknown - Review of Systems General: No Symptoms Pulmonary: No Symptoms Cardiovascular: No Symptoms Gastrointestinal: No Symptoms Neurological: No Symptoms Other: Reports: None - Physical Assessment NPO Status Date: 09/29/20 NPO Status Time: 00:05 Vital Signs: Last Vital Signs Temp 98.4 F 09/29/20 08:19 Pulse 82 09/29/20 08:19 Resp 15 09/29/20 08:19 BP 136/89 09/29/20 08:19 Pulse Ox 94 L 09/29/20 08:19 Height: 5 ft 3.5 in Weight: 230 lb ASA Class: 3 Mental Status: Alert & Oriented x3 Airway Class: Mallampati = 3 Dentition: Reports: Normal Dentition ROM/Head Extension: Limited/Partial Lungs: Clear to Auscultation, Normal Respiratory Effort Cardiovascular: Regular Rate, Regular Rhythm - Allergies Allergies/Adverse Reactions: Allergies Allergy/AdvReac Type Severity Reaction Status Date / Time codeine Allergy Hives Verified 09/25/20 11:44 nickel Allergy Rash Verified 09/25/20 11:44 - Anesthesia Plan Pre-Op Medication Ordered: None - Acknowledgements Anesthesia Type Planned: General Anesthesia Pt an Appropriate Candidate for the Planned Anesthesia: Yes Alternatives and Risks of Anesthesia Discussed w Pt/Guardian: Yes Pt/Guardian Understands and Agrees with Anesthesia Plan: Yes Additional Comments: npo after mn hx crohn's with ileostomy no bp meds no cv problems anxiety etoh none tob quit 20 years ago but still takes nicotene gum jovanni morbid obesity par no questions PreAnesthesia Questionnaire HEENT History: Reports: Cataract, Impaired Vision Other HEENT History: wears glasses, has an upper partial denture Cardiovascular History: Reports: High Cholesterol Respiratory History: Reports: None Gastrointestinal History: Reports: Bowel Obstruction, Hiatal Hernia, Inflammatory Bowel Disease Other Gastrointestinal History: hx of Crohns disease Genitourinary History: Reports: Renal Calculus, UTI, Recurrent Other Genitourinary History: hx kidney stones and UTI, fibrocystic breasts, UAT TESTER History: Reports: , Therapeutic Other OB/BYN History: ETOP Musculoskeletal History: Reports: Arthritis, Fracture Other Musculoskeletal History: hx of fx wrist and ankle Neurological History: Reports: Migraines, Other (See Below) Other Neuro History: hx of motion sickness Psychiatric History: Reports: Anxiety Other Psychiatric History: Claustrophobia Endocrine/Metabolic History: Reports: Obesity/BMI 30+, Other (See Below) Other Endocrine/Metabolic History: Pre-diabetic Hematologic History: Reports: Blood Transfusion(s) Immunologic History: Oncologic (Cancer) History: Dermatologic History: Reports: Eczema Other Dermatologic History: only if she wears jewelry - Infectious Disease History Infectious Disease History: Reports: Chicken Pox, Measles Other Infectious Disease History: when a child - Past Surgical History Head Surgeries/Procedures: Reports: None HEENT Surgical History: Reports: Tonsillectomy Cardiovascular Surgical History: Reports: None Respiratory Surgical History: Reports: None GI Surgical History: Reports: Colon, Colonoscopy, Other (See Below) Other GI Surgeries/Procedures: has Illeostomy, has had multiple bowel surgeries Female Surgical History: Reports: Breast Biopsy, Cystectomy, D&C Other Female Surgeries/Procedures: laparotomy for ovarian cysts, hysteroscopy , multiple breast bx Endocrine Surgical History: Reports: None Neurological Surgical History: Reports: None Musculoskeletal Surgical History: Reports: Other (See Below) Other Musculoskeletal Surgeries/Procedures:: bilateral arm reduction Oncologic Surgical History: Reports: Biopsy of Breast - SUBSTANCE USE Tobacco Use Status *Q: Former Tobacco User Tobacco Use Within Last Twelve Months: Other (See Below) Recreational Drug Use History: No - HOME MEDS Home Medications: Home Meds Omeprazole 20 mg PO DAILY 05/03/15 [History] atorvaSTATin [Lipitor] 20 mg PO BEDTIME 05/03/15 [History] azaTHIOprine [Azathioprine] 150 mg PO DAILY 05/03/15 [History] Cholecalciferol (Vitamin D3) [Vitamin D3] 1,000 units PO DAILY 05/01/18 [History] Mv-Min/Iron/Folic/Calcium/Vitk [Women's Multivitamin Tablet] 1 tab PO DAILY 05/01/18 [History] Ibuprofen 200 mg PO Q6H PRN 03/03/19 [History] levonorgestreL [Mirena] 1 unit VAG ONETIME 03/03/19 [History] Ascorbic Acid [Vitamin C] 500 mg PO DAILY 05/01/20 [History] Turmeric Root Extract [Turmeric] 1 tab PO DAILY 05/01/20 [History] Zinc Gluconate [Zinc] 30 mg PO DAILY 05/01/20 [History] Radha Root [Radha] 1 tab PO DAILY 09/25/20 [History] clonazePAM [Clonazepam] 0.5 mg PO DAILY 09/25/20 [History] - CURRENT (IN HOUSE) MEDS Current Meds: Current Medications Discontinued Medications Dexamethasone (Dexamethasone 4 Mg/Ml 5 Ml Mdv) Confirm Administered Dose 20 mg .ROUTE .STK-MED ONE Stop: 09/29/20 06:51 Fentanyl (Fentanyl 100 Mcg/2 Ml Sdv) Confirm Administered Dose 100 mcg .ROUTE .STK-MED ONE Stop: 09/29/20 06:48 Lidocaine HCl (Lidocaine 1% 5 Ml Sdv) Confirm Administered Dose 5 ml .ROUTE .STK-MED ONE Stop: 09/29/20 06:50 Midazolam HCl (Midazolam 1 Mg/Ml 2 Ml Sdv) Confirm Administered Dose 2 mg .ROUTE .STK-MED ONE Stop: 09/29/20 06:49 Ondansetron HCl (Ondansetron 4 Mg/2 Ml Sdv) Confirm Administered Dose 4 mg .ROUTE .STK-MED ONE Stop: 09/29/20 06:51 Propofol (Propofol 200 Mg/20 Ml Sdv) Confirm Administered Dose 200 mg .ROUTE .STK-MED ONE Stop: 09/29/20 06:48
[2020-09-29] MEDS ORDERED: Lactated Ringers 1,000 ML IV SCH (09:15)
[2020-09-29] MEDS ORDERED: Ketorolac 30 MG/ML SDV ONE (11:20)
[2020-09-29] MEDS ORDERED: fentaNYL 100 MCG/2 ML SDV ONE (11:27)
--- NOTE | 2020-09-29 11:29 | PCM.OPNOTE ---
- General Post-Op/Procedure Note Date of Surgery/Procedure: 09/29/20 Operative Procedure(s): hysteroscopic directed biopsies, and dilatation and curettage, IUD removal and reinsertion under hysteroscopic guidance. Findings: Uterus fixed and sharply anteflexed at the internal cervical os. Irregular, prominent endometrium at the right uterine cornu, IUD appropriately positioned at the end of procedure. Pre Op Diagnosis: EIN Post-Op Diagnosis: same Anesthesia Technique: General LMA Primary Surgeon: Janine Bonilla Anesthesia Provider: Kourtney Olivares Pathology: Mirena IUD, endometrial curettings, endocervical curettings. Fluid Replacement, Intraop: 1,400 (hysteroscopic deficit 600 ml) EBL in mLs: 30 Complications: None Known Condition: Good
[2020-09-29] MEDS ORDERED: Ketorolac 30 MG/ML SDV IVPUSH ONE (11:30)
[2020-09-29] MEDS ORDERED: fentaNYL 100 MCG/2 ML SDV IVPUSH PRN (11:37)
--- NOTE | 2020-09-29 11:59 | PCM.POSTAN ---
POST ANESTHESIA ASSESSMENT - MENTAL STATUS Mental Status: Alert, Oriented - VITAL SIGNS Vital Signs: Last Vital Signs Temp 97.2 F 09/29/20 10:59 Pulse 73 09/29/20 11:46 Resp 9 L 09/29/20 11:46 BP 130/60 09/29/20 11:46 Pulse Ox 100 09/29/20 11:46 - RESPIRATORY Respiratory Status: Respiratory Rate WNL, Airway Patent, O2 Saturation Stable - CARDIOVASCULAR CV Status: Pulse Rate WNL, Blood Pressure Stable - GASTROINTESTINAL GI Status: No Symptoms - POST OP HYDRATION Hydration Status: Adequate & Stable
--- NOTE | 2020-09-29 12:31 | PCM48HPAN ---
Post Anesthesia Note - EVALUATION WITHIN 48HRS OF ANESTHETIC Vital Signs in Normal Range: Yes Patient Participated in Evaluation: Yes Respiratory Function Stable: Yes Airway Patent: Yes Cardiovascular Function Stable: Yes Hydration Status Stable: Yes Pain Control Satisfactory: Yes Nausea and Vomiting Control Satisfactory: Yes Mental Status Recovered: Yes Vital Signs: Last Vital Signs Temp 97.7 F 09/29/20 11:51 Pulse 71 09/29/20 12:06 Resp 15 09/29/20 12:06 BP 130/74 09/29/20 12:06 Pulse Ox 97 09/29/20 12:06
[2020-09-29 12:36] VITALS: BP 133/63; PULSE 74
--- NOTE | 2020-09-29 17:27 | OR ---
SURGEON: Janine Bonilla M.D. DATE OF PROCEDURE: 09/29/2020 PREOPERATIVE DIAGNOSIS: Endometrial intraepithelial neoplasia grade 3. POSTOPERATIVE DIAGNOSIS: Endometrial intraepithelial neoplasia grade 3. PROCEDURE: Hysteroscopic directed biopsy with uterine curettage and intrauterine device removal and replacement. PRIMARY SURGEON: Janine Bonilla M.D. ANESTHESIA: General LMA. ESTIMATED BLOOD LOSS: Less than 30 mL. HYSTEROSCOPIC FLUID DEFICIT: 600 mL. FINDINGS: The cervix is in the very posterior vagina and is fixed related to abdominopelvic adhesions. There is almost a 90-degree angle at the internal cervix entering the endometrial cavity. The original IUD was appropriately positioned. After the IUD was removed, there was irregular thickening at the right uterine cornua as well as more frond-like inflammatory changes globally in the uterus. The placement of the second IUD was confirmed hysteroscopically with an arm in the right uterine cornua confirmed. COMPLICATIONS: None known. DISPOSITION: Stable to Recovery. BRIEF HISTORY: This is a 70-year-old female. She has a history of Crohn disease. She also has a history of morbid obesity. She has lost significant amount weight in recent years. However, approximately 4 years ago, she was diagnosed with atypical endometrial hyperplasia or EIN. She was seen by [employer] Tender-oncologist for consultation to consider hysterectomy, which would be the normal treatment for this disorder. However, due to her morbidities, they recommended treatment with a levonorgestrel IUD with monitoring with biopsies, and her current IUD has been in place for 4 years. We have noticed increased thickening particularly at the right uterine cornu from 4 mm to 5 mm to 7 mm. She has had some brownish discharge, and therefore, she presents for hysteroscopic IUD removal and reinsertion as well as fractional curettage. Risks were discussed. Particularly for her, she is high risk for uterine perforation. She has known pelvic adhesions with history of a fistula. Therefore, bowel injury is also higher risk for her as well as risk of thromboembolic event and risk of anesthesia as well as risk of infection. Understanding all these risks, she does desire to proceed. DESCRIPTION OF PROCEDURE: With the patient in dorsal lithotomy position, under adequate general anesthesia, the perineum and vagina were prepped with Betadine and draped in usual fashion for vaginal surgery. SCDs were in place. The bladder had been drained. She had received 2 g of Ancef IV. After appropriate time-out was held, a bimanual examination revealed findings as noted above. Speculum was placed into the vagina, and in the very posterior fornix, I was able to slightly identify the cervix. The anterior lip of the cervix was grasped. The uterus was essentially immobile. I had her take Cytotec 200 mcg preoperatively, and I was able to place a 5 mm hysteroscope through the external cervical os and followed the IUD string up into the uterine cavity. This being completed, I switched hysteroscopes to the 6 mm, 7 mm hysteroscope for the MyoSure and with this, I was able to do a directed biopsy of the thickened endometrium in the right uterine cornua and some generalized removal of tissue of the uterus. However, I wanted to remove the IUD before continuing, and I felt that I could follow my track back into the uterus. Therefore, the IUD was removed, and the MyoSure hysteroscope was replaced into the uterine cavity, and I did proceed with excellent visualization to remove further tissue until the cavity appeared normal. This being completed, I did a sharp curettage of the endocervix and collected this with a Cytobrush. I then attempted to place the IUD. Due to the extremely sharp angle at the internal cervical os, I was unable to place the IUD in a traditional manner. I therefore placed and released the IUD into the lower uterine segment, upper cervix. I then followed this with a hysteroscope into the uterine cavity, dropping the hysteroscope handle sharply to enter the uterine cavity, and grasping the cross arm of the IUD and bringing it to the uterine fundus and confirming that one of the cross arms was definitely placed in the right uterine cornua and the area of concern and was positioned appropriately. This being completed, I removed the hysteroscope and trimmed the string. All the instruments were removed from the vagina. Final sponge, needle, and instrument counts were reported as correct. There were no known complications. HYSTEROSCOPIC DEFICIT: 600 mL. INTRAVENOUS FLUIDS: 1400 mL of crystalloid. SPECIMENS: IUD, endocervical curettings, and endometrial curettings. CHRISTOPH / YARELI /[id number]
== END 2020-09-29 13:11 | disposition home or self-care (01) ==
LOC: MW.SDS 08:11
PROVIDERS: ATTEND Obstetrics & Gynecology
DX: C54.1 Malignant neoplasm of endometrium (principal); E78.00 Pure hypercholesterolemia, unspecified; G43.909 Migraine, unspecified, not intractable, without status migrainosus; G47.30 Sleep apnea, unspecified; E66.9 Obesity, unspecified; Z98.890 Other specified postprocedural states; Z79.899 Other long term (current) drug therapy; Z87.891 Personal history of nicotine dependence; Z88.5 Allergy status to narcotic agent; Z68.41 Body mass index [BMI] 40.0-44.9, adult
CPT/HCPCS: 58558; 58579; 88305; J0690; J1100; J1885; J2250; J2405; J2704; J3010; J7120; 00952

== ENCOUNTER 2020-11-22 23:03 | Emergency (ER) | payer MEDICARE, BC ==
[2020-11-22] MEDS ORDERED: Sodium Chloride 0.9% 10 ML Syringe FLUSH PRN (23:43)
[2020-11-22] MEDS ORDERED: HYDROmorphone 1 MG/ML Syringe IVPUSH ONE (23:43)
[2020-11-22] MEDS ORDERED: Ondansetron 4 MG/2 ML SDV IVPUSH ONE (23:43)
[2020-11-22] MEDS ORDERED: Sodium Chloride 0.9% 2.5 ML Syringe FLUSH PRN (23:43)
--- NOTE | 2020-11-22 23:51 | EDM.PDOC ---
<Armani Mancilla - Last Filed: 11/23/20 04:21> ED HPI GENERAL MEDICAL PROBLEM - General Chief Complaint: Abdominal Pain Stated Complaint: POSSIBLE INTESTINAL BLOCKAGE Time Seen by Provider: 11/22/20 23:06 - History of Present Illness INITIAL COMMENTS - FREE TEXT/NARRATIVE: Patient is 70-year-old female she has a history of multiple small bowel obstructions in the past on November 04 she had a hysterectomy for gynecologic cancer in [facility]. Starting at about 5 PM she developed a sharp 10 out of 10 nonradiating left upper quadrant abdominal pain similar to multiple prior bowel obstructions no vomiting but patient states that she often does not vomit with her bowel obstructions. Patient not currently having flatus. Symptoms constant and severe without exacerbating or alleviating factors some nausea but no vomiting no other associated symptoms. No fever. Pt reports minimal output from her ostomy since the pain started. Abdomen Pain Score (Numeric/FACES): 10 - Related Data Allergies Allergy/AdvReac Type Severity Reaction Status Date / Time codeine Allergy Hives Verified 11/22/20 23:39 nickel Allergy Rash Verified 11/22/20 23:39 Home Meds: Home Meds Omeprazole 20 mg PO DAILY 05/03/15 [History] atorvaSTATin [Lipitor] 20 mg PO BEDTIME 05/03/15 [History] azaTHIOprine [Azathioprine] 150 mg PO DAILY 05/03/15 [History] Cholecalciferol (Vitamin D3) [Vitamin D3] 1,000 units PO DAILY 05/01/18 [History] Mv-Min/Iron/Folic/Calcium/Vitk [Women's Multivitamin Tablet] 1 tab PO DAILY 05/01/18 [History] Ibuprofen 200 mg PO Q6H PRN 03/03/19 [History] levonorgestreL [Mirena] 1 unit VAG ONETIME 03/03/19 [History] Ascorbic Acid [Vitamin C] 500 mg PO DAILY 05/01/20 [History] Turmeric Root Extract [Turmeric] 1 tab PO DAILY 05/01/20 [History] Zinc Gluconate [Zinc] 30 mg PO DAILY 05/01/20 [History] Radha Root [Radha] 1 tab PO DAILY 09/25/20 [History] clonazePAM [Clonazepam] 0.5 mg PO DAILY 09/25/20 [History] Past Medical History HEENT History: Reports: Cataract, Impaired Vision Other HEENT History: wears glasses, has an upper partial denture Cardiovascular History: Reports: High Cholesterol Respiratory History: Reports: None Gastrointestinal History: Reports: Bowel Obstruction, Hiatal Hernia, Inflammatory Bowel Disease Other Gastrointestinal History: hx of Crohns disease Genitourinary History: Reports: Renal Calculus, UTI, Recurrent Other Genitourinary History: hx kidney stones and UTI, fibrocystic breasts, 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: , 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 Other CORRUGATED BOX MACHINE OPERATOR History: ETOP Musculoskeletal History: Reports: Arthritis, Fracture Other Musculoskeletal History: hx of fx wrist and ankle Neurological History: Reports: Migraines, Other (See Below) Other Neuro History: hx of motion sickness Psychiatric History: Reports: Anxiety Other Psychiatric History: Claustrophobia Endocrine/Metabolic History: Reports: Obesity/BMI 30+, Other (See Below) Other Endocrine/Metabolic History: Pre-diabetic Hematologic History: Reports: Blood Transfusion(s) Immunologic History: Oncologic (Cancer) History: Dermatologic History: Reports: Eczema Other Dermatologic History: only if she wears jewelry - Infectious Disease History Infectious Disease History: Reports: Chicken Pox, Measles Other Infectious Disease History: when a child - Past Surgical History Head Surgeries/Procedures: Reports: None HEENT Surgical History: Reports: Tonsillectomy Cardiovascular Surgical History: Reports: None Respiratory Surgical History: Reports: None GI Surgical History: Reports: Colon, Colonoscopy, Other (See Below) Other GI Surgeries/Procedures: has Illeostomy, has had multiple bowel surgeries Female Surgical History: Reports: Breast Biopsy, Cystectomy, D&C Other Female Surgeries/Procedures: laparotomy for ovarian cysts, hysteroscopy , multiple breast bx Endocrine Surgical History: Reports: None Neurological Surgical History: Reports: None Musculoskeletal Surgical History: Reports: Other (See Below) Other Musculoskeletal Surgeries/Procedures:: bilateral arm reduction Oncologic Surgical History: Reports: Biopsy of Breast Social & Family History - Family History Family Medical History: No Pertinent Family History - Caffeine Use Caffeine Use: Reports: None ED ROS GENERAL - Review of Systems Review Of Systems: See Below Free Text/Narrative/Comment: General: No fever. Skin: No rash. Eyes: No vision problems. ENT: No sore throat. Neck: No neck stiffness. Respiratory: No shortness of breath. Cardiac: No chest pain. Gastrointestinal: Per HPI Musculoskeletal: No myalgias/arthralgias. Neurologic: No headache. ED EXAM, GENERAL - Physical Exam Exam: See Below Free Text/Narrative:: General Appearance: No acute distress, appears comfortable HEENT: Normocephalic/atraumatic, sclera anicteric, mucous membranes moist Neck: Normal range of motion Chest and Lungs: Bilateral breath sounds, clear to auscultation Cardiovascular: Regular rate and rhythm, no murmur Abdomen: Some tenderness left upper quadrant but no guarding or rebound abdomen soft Musculoskeletal: No edema or tenderness Neurologic: Awake, alert, no obvious deficits, moving all extremities Psychiatric: Appropriate, cooperative ED GENERAL MEDICAL PROCEDURES - Additional/Other Procedure(s) Other (Free Text) Procedure(s): Peripheral IV Insertion: Consent obtained and procedural pause performed. Arm was cleansed with chlorhexidine. US was used to identify an appropriate vein in the right upper arm just proximal and medial to the AC and a 1.88" 20gz catheter was inserted into the vein under dynamic ultrasound guidance. The IV was secured in the usual fashion and nicole and flushed well. The patient tolerated the procedure well with no complications. Vipin Mancilla MD Departure - Departure Disposition: DC/Tfer to [facility] 02 Clinical Impression: Small bowel obstruction - Discharge Information Referrals: Gail Sutherland DO [Primary Care Provider] - Forms: ED Department Discharge Sepsis Event Note (ED) - Evaluation Sepsis Screening Result: No Definite Risk - Assessment/Plan Assessment:: 70-year-old female presenting with signs symptoms are consistent with small bowel obstruction. Labs including lactic acid pending patient nontoxic in appearance Zofran and Dilaudid ordered for symptoms and CT scan ordered. No signs of peritonitis at this time. 0335: Patient's labs are normal no leukocytosis. CT scan shows no signs of a bowel obstruction. Radiology does question potential small pelvic abscess. However the patient has no lower abdominal symptoms she has no fever her white blood cell count is normal. I think this is unlikely. Patient symptoms are minimal at this time and no vomiting. Given this and the negative CT scan small bowel obstruction is felt unlikely. Patient has had minimal output from her ileostomy at this point but she is also been laying down. Patient states that she feels relatively well at this time we will have her stand and ambulate if she has output from her ileostomy and continues to feel well then we do not have any evidence for small bowel obstruction at this time. Will discuss with her oncologic surgeon regarding the CT finding. 0352: Pt discussed with Dr. 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 She and I agree that her clinical picture does not suggest post operative abscess. She will review the images. In the mean time we will repeat the scan with PO and IV contrast to better define the processes. The PO contrast will also help us more definitively evaluate for small bowel obstruction. <Hitesh Orourke - Last Filed: 11/23/20 08:30> ED HPI GENERAL MEDICAL PROBLEM - History of Present Illness INITIAL COMMENTS - FREE TEXT/NARRATIVE: 8:25 AM: Signout received at [address] Mancilla. Repeat CT scan with IV and p.o. contrast reveals a limited study secondary to the majority administered oral contrast is within the stomach or proximal small bowel limiting the evaluation of the bowel in the lower abdomen and pelvis. Additionally, there is no IV contrast secondary to extravasation of contrast dye during the procedure. The repeat CT scan does show that there is either a spigelian hernia in the right lower quadrant adjacent to the ileostomy versus a parastomal hernia which again contains a short segment of the small bowel. The small bowel just proximal to this is mildly dilated measuring up to 3.7 cm and contains air-fluid levels. This raises a concern for a developing partial small bowel obstruction. I have discussed with the patient the current plan. Patient reports that she has not had any flatus or stool production in her ileostomy since approximately 6 PM last night. Patient reports that she ate dinner at approximately 4 PM with cream corn beef on toast and has had not had any output from her ileostomy since. The fluid collection seen within the pelvis has no air within it. This could either be sterile or infected. Patient has no pain in her lower abdomen, no fever and no WBC count which makes it unlikely that this is an abscess and more likely a seroma. 8 AM: Case was discussed with our general surgeon on-call Dr. Campo. Given the patient's multiple comorbidities and multiple surgeries in her abdomen, he does not feel comfortable accepting her here at [facility] and feels that she would be better served at a higher level of care at a tertiary care center. 805: I have discussed the case with Dr. Chung at [facility]. At this time they do not have any bed capacity for excepting a patient for transfer. 815: I discussed the case with Dr. Garcia at [facility] and she has agreed to assist us with inpatient level of care of this patient and accepting her for transfer to further assist with her small bowel suction. I have discussed the plan with the patient and she is in agreement with this plan. Course - Vital Signs Last Recorded V/S: Last Vital Signs Temp 97.5 F 11/23/20 05:10 Pulse 80 11/23/20 05:10 Resp 18 11/23/20 05:10 BP 124/64 11/23/20 05:10 Pulse Ox 95 11/23/20 05:10 - Orders/Labs/Meds Orders: Active Orders 24 hr Category Date Time Status Sodium Chloride 0.9% [Saline Flush] Med 11/22/20 23:43 Active 10 ml FLUSH ASDIRECTED PRN Sodium Chloride 0.9% [Saline Flush] Med 11/22/20 23:43 Active 2.5 ml FLUSH ASDIRECTED PRN Saline Lock Insert [OM.PC] Stat Oth 11/22/20 23:43 Ordered Medication Orders Sodium Chloride (Sodium Chloride 0.9% 10 Ml Syringe) 10 ml FLUSH ASDIRECTED PRN PRN Reason: Keep Vein Open Sodium Chloride (Sodium Chloride 0.9% 2.5 Ml Syringe) 2.5 ml FLUSH ASDIRECTED PRN PRN Reason: Keep Vein Open Labs: Laboratory Tests 11/22/20 11/22/20 11/23/20 Range/Units 23:46 23:46 00:03 WBC 9.50 (4.0-11.0) K/uL RBC 3.71 L (4.30-5.90) M/uL Hgb 12.9 (12.0-16.0) g/dL Hct 37.7 (36.0-46.0) % MCV 101.6 H (80.0-98.0) fL MCH 34.8 H (27.0-32.0) pg MCHC 34.2 (31.0-37.0) g/dL RDW Std Deviation 53.2 (28.0-62.0) fl RDW Coeff of Jamia 14 (11.0-15.0) % Plt Count 504 H (150-400) K/uL MPV 9.60 (7.40-12.00) fL Neut % (Auto) 86.5 H (48.0-80.0) % Lymph % (Auto) 5.5 L (16.0-40.0) % Z[place]ata % (Auto) 7.3 (0.0-15.0) % Eos % (Auto) 0.5 (0.0-7.0) % Baso % (Auto) 0.2 (0.0-1.5) % Neut # (Auto) 8.2 H (1.4-5.7) K/uL Lymph # (Auto) 0.5 L (0.6-2.4) K/uL Z[place]ata # (Auto) 0.7 (0.0-0.8) K/uL Eos # (Auto) 0.1 (0.0-0.7) K/uL Baso # (Auto) 0.0 (0.0-0.1) K/uL Nucleated RBC % 0.0 /100WBC Nucleated RBCs # 0 K/uL Sodium 140 (136-145) mmol/L Potassium 3.7 (3.5-5.1) mmol/L Chloride 103 (98-107) mmol/L Carbon Dioxide 27.8 (21.0-32.0) mmol/L BUN 11 (7.0-18.0) mg/dL Creatinine 1.0 (0.6-1.0) mg/dL Est Cr Clr Drug Dosing 44.54 mL/min Estimated GFR (MDRD) 55.1 ml/min Glucose 137 H (74-106) mg/dL Lactic Acid 1.3 (0.4-2.0) mmol/L Calcium 8.6 (8.5-10.1) mg/dL Total Bilirubin 0.7 (0.2-1.0) mg/dL AST 20 (15-37) IU/L ALT 18 (14-63) IU/L Alkaline Phosphatase 97 (46-116) U/L Total Protein 7.3 (6.4-8.2) g/dL Albumin 2.6 L (3.4-5.0) g/dL Globulin 4.7 H (2.6-4.0) g/dL Albumin/Globulin Ratio 0.6 L (0.9-1.6) Lipase 83 (73-393) U/L Meds: Medications Generic Name Dose Route Start Last Admin Trade Name Nell PRN Reason Stop Dose Admin Sodium Chloride 10 ml 11/22/20 23:43 Sodium Chloride 0.9% 10 Ml Syringe FLUSH ASDIRECTED PRN Keep Vein Open Sodium Chloride 2.5 ml 11/22/20 23:43 Sodium Chloride 0.9% 2.5 Ml Syringe FLUSH ASDIRECTED PRN Keep Vein Open Discontinued Medications Generic Name Dose Route Start Last Admin Trade Name Nell PRN Reason Stop Dose Admin Hydromorphone HCl 0.5 mg 11/22/20 23:43 11/23/20 00:05 Hydromorphone 1 Mg/Ml Syringe IVPUSH 11/22/20 23:44 0.5 mg ONETIME ONE Administration Hydromorphone HCl 0.5 mg 11/23/20 02:45 11/23/20 02:57 Hydromorphone 2 Mg/Ml Syringe IVPUSH 11/23/20 02:46 0.5 mg ONETIME ONE Administration Hydromorphone HCl 1 mg 11/23/20 06:34 11/23/20 06:43 Hydromorphone 1 Mg/Ml Syringe IVPUSH 11/23/20 06:35 Not Given ONETIME ONE Hydromorphone HCl 1 mg 11/23/20 06:43 11/23/20 06:45 Hydromorphone 1 Mg/Ml Syringe IM 11/23/20 06:44 1 mg ONETIME ONE Administration Iopamidol 100 ml 11/23/20 01:26 11/23/20 06:27 Iopamidol 755 Mg/Ml 100 Ml Bottle IVPUSH 11/23/20 01:27 100 ml ONETIME ONE Administration Ondansetron HCl 4 mg 11/22/20 23:43 11/22/20 23:58 Ondansetron 4 Mg/2 Ml Sdv IVPUSH 11/22/20 23:44 4 mg ONETIME ONE Administration Departure - Departure Time of Disposition: 08:29 Condition: Good Sepsis Event Note (ED) - Focused Exam Vital Signs: Vital Signs Temp Pulse Resp BP Pulse Ox 11/23/20 05:10 97.5 F 80 18 124/64 95 11/23/20 04:10 89 18 124/61 95 11/23/20 02:45 88 18 123/64 96 11/23/20 01:15 90 18 128/67 96 11/22/20 23:30 97.1 F 92 18 159/77 H 97
[2020-11-23 00:07] LABS: CARBON DIOXIDE,CO2 27.8 mmol/L (21.0-32.0); POTASSIUM,K 3.7 mmol/L (3.5-5.1)
[2020-11-23] MEDS ORDERED: Iopamidol 755 Mg/ML 100 ML Bottle IVPUSH ONE (01:26)
--- NOTE | 2020-11-23 02:30 | CT ---
For Patients: As a result of the Century Cures Act, medical imaging exams and procedure reports are released immediately into your electronic medical record. You may view this report before your referring provider. If you have questions, please contact your health care provider. INDICATION: Pain following total abdominal hysterectomy for endometrial carcinoma on 11/03/2020. TECHNIQUE: Volumetric helical scanning of the abdomen and pelvis was performed without contrast material. Coronal and sagittal reconstructions were obtained. COMPARISON: Abdomen/pelvis CT of 07/26/2019. FINDINGS: Since the previous examination, a total abdominal hysterectomy has been performed. On images 124-136 of series 201, there is question of a 4.3 x 3.4 x 2.0 cm abscess in the posterior mid pelvis in the postop site. Postop changes of colon resection with right lower quadrant ileostomy are again demonstrated. The bowel is otherwise unremarkable except for a small hiatal hernia present no free intraperitoneal fluid is demonstrated. Small stones are demonstrated in the gallbladder. The liver, bile ducts, spleen, adrenal glands and pancreas are unremarkable. The kidneys are negative except for a 3.3 cm right renal parenchymal cyst. No lymphadenopathy is noted. The lung bases are essentially clear, but in the heart size is normal. IMPRESSION: 1. Interval total abdominal hysterectomy and question of 4.3 x 3.4 x 2.0 cm abscess in the posterior mid pelvis at the postop site. Repeat scan utilizing oral and IV contrast suggested. 2. Post colon resection with right lower quadrant ileostomy, as before. 3. Small hiatal hernia 4. Cholelithiasis. Please note that all CT scans at this facility use dose modulation, iterative reconstruction, and/or weight-based dosing when appropriate to reduce radiation dose to as low as reasonably achievable. Dictated by Thomas Gallego MD @ 11/23/2020 2:30:[address] Thomas Gallego @ Nov 23 2020 2:30AM
[2020-11-23] MEDS ORDERED: HYDROmorphone 2 MG/ML Syringe IVPUSH ONE (02:45)
[2020-11-23] MEDS ORDERED: HYDROmorphone 1 MG/ML Syringe IVPUSH ONE ×2 (06:34→09:35)
[2020-11-23] MEDS ORDERED: HYDROmorphone 1 MG/ML Syringe IM ONE (06:43)
--- NOTE | 2020-11-23 07:17 | CT ---
INDICATION: Abdominal pain. Recent hysterectomy. Possible abscess noted on a CT from earlier this morning. Repeat examination with IV and oral contrast was recommended. TECHNIQUE: Axial images. Sagittal and coronal reconstructions. Oral contrast was administered. IV contrast was attempted, although extravasation was noted by the technologist and therefore IV contrast administration was aborted. COMPARISON: Noncontrast study from earlier in the day. Contrast-enhanced study from 07/26/2019. FINDINGS: The majority of the oral contrast is seen either within the stomach or proximal small bowel, which limits the evaluation of the bowel within the lower abdomen and pelvis. In addition, as noted in the technical section of this report, there is no IV contrast due to extravasation. In the lower chest, there are no new findings. The unenhanced liver and spleen are unremarkable other than the presence of granulomatous calcifications. A few tiny stones are seen in the dependent portion of the gallbladder, with no CT signs of acute cholecystitis. No significant bile duct dilatation. Atrophic changes of the pancreas are noted. No adrenal abnormality is seen. Low-attenuation mass in the right kidney is suboptimally characterized on this unenhanced study but likely is related to a cyst given its appearance on the contrast-enhanced CT from 2019. Atherosclerotic changes are redemonstrated. No significant dilatation of the abdominal aorta. Small hiatal hernia. The stomach is grossly unremarkable. There is no significantly dilated proximal or mid small bowel. Again noted are postsurgical changes from a colectomy with a right lower quadrant ileostomy. There is either a spigelian hernia in the right lower quadrant adjacent to the ileostomy, versus a parastomal hernia, which again contains a short segment of the small bowel. The small bowel just proximal to this is mildly dilated, measuring up to 3.7 cm, and contains air-fluid levels. This raises the concern for a developing partial small bowel obstruction. Postsurgical changes are also seen from a recent hysterectomy. There is a small fluid collection in the cul-de-sac measuring approximately 3 x 4 cm. This does not contain air. This could be sterile or infected. The urinary bladder is collapsed but appears unremarkable. A few small midline incisional hernias are noted. Degenerative changes are seen in the spine and pelvis. IMPRESSION: 1. Limited study. The majority of the administered oral contrast is either in the stomach or proximal small bowel, limiting the evaluation of the bowel in the lower abdomen and pelvis. Additionally, there is no IV contrast. 2. Redemonstration of a small fluid collection seen within the pelvis. There is no air within this collection. This could either be sterile or infected. 3. Redemonstration of a hernia in the right lower quadrant, containing a short segment of small bowel. There is abnormally dilated small bowel just proximal to the hernia, which raises the concern for a developing partial small bowel obstruction. Clinically correlate. 4. Other findings as noted. Dictated by Raúl Mancuso MD @ 11/23/2020 7:15:21 AM Please note that all CT scans at this facility use dose modulation, iterative reconstruction, and/or weight-based dosing when appropriate to reduce radiation dose to as low as reasonably achievable. Dictated by: Raúl Mancuso MD @ 11/23/2020 07:15:26 (Electronically Signed)
[2020-11-23] MEDS ORDERED: Ondansetron 4 MG/2 ML SDV IVPUSH ONE (09:35)
[2020-11-23 10:24] VITALS: BP 127/56; PULSE 88
== END 2020-11-23 09:30 ==
LOC: MW.ED 23:03
DX: K56.609 Unspecified intestinal obstruction, unspecified as to partial versus complete obstruction (principal); E78.00 Pure hypercholesterolemia, unspecified; E66.9 Obesity, unspecified; Z68.43 Body mass index [BMI] 50.0-59.9, adult; Z88.5 Allergy status to narcotic agent; Z91.048 Other nonmedicinal substance allergy status; Z79.899 Other long term (current) drug therapy
CPT/HCPCS: 36415; 74176; 74177; 80053; 83605; 83690; 85025; 96372; 96374; 96375; 96376; 99285; J1170; J2405; Q9967

== ENCOUNTER 2022-03-21 14:07 | Emergency (ER) | payer MEDICARE, BC ==
[2022-03-21] MEDS ORDERED: Ondansetron 4 MG/2 ML SDV IVPUSH ONE ×2 (14:26→16:40)
[2022-03-21] MEDS ORDERED: Sodium Chloride 0.9% 2.5 ML Syringe FLUSH PRN (14:26)
[2022-03-21] MEDS ORDERED: Sodium Chloride 0.9% 10 ML Syringe FLUSH PRN (14:26)
[2022-03-21] MEDS ORDERED: Sodium Chloride 0.9% 1,000 ML IV ONE (14:26)
[2022-03-21] MEDS ORDERED: fentaNYL 50 MCG/ML SDV IVPUSH ONE (14:26)
[2022-03-21] MEDS ORDERED: ceFAZolin 2 GM in Premix Bag 1 BAG IV ONE (14:28)
[2022-03-21 15:00] LABS: CARBON DIOXIDE,CO2 25.9 mmol/L (21.0-32.0); POTASSIUM,K 3.9 mmol/L (3.5-5.1)
[2022-03-21] MEDS ORDERED: Morphine 4 MG/ML Syringe IVPUSH ONE (15:18)
[2022-03-21 15:39] VITALS: BP 142/62; PULSE 69
[2022-03-21] MEDS ORDERED: HYDROmorphone 1 MG/ML Syringe IVPUSH ONE (16:39)
[2022-03-21] MEDS: Ketamine 500 mg/10 ML MDV ONE ×2 (16:48→16:53)
[2022-03-21] MEDS: KETAMINE HCL IV ONE ×2 (16:50→16:52)
[2022-03-21] MEDS ORDERED: KETAMINE HCL IV STA (17:12)
[2022-03-21] MEDS ORDERED: HYDROmorphone 1 MG/ML Syringe ONE ×2 (17:14→18:07)
[2022-03-21] MEDS ORDERED: HYDROmorphone 1 MG/ML Syringe IVPUSH STA (18:09)
== END 2022-03-21 18:00 ==
LOC: MW.ED 14:07
DX: S63.005A Unspecified dislocation of left wrist and hand, initial encounter (principal); S52.502B Unspecified fracture of the lower end of left radius, initial encounter for open fracture type I or II; E78.00 Pure hypercholesterolemia, unspecified; E66.9 Obesity, unspecified; Z68.41 Body mass index [BMI] 40.0-44.9, adult; Z88.5 Allergy status to narcotic agent; Z91.048 Other nonmedicinal substance allergy status; Z79.899 Other long term (current) drug therapy; Z20.822 Contact with and (suspected) exposure to COVID-19; W01.0XXA Fall on same level from slipping, tripping and stumbling without subsequent striking against object, initial encounter
CPT/HCPCS: 12004; 25605; 36415; 73090; 73100; 73110; 80053; 85025; 96361; 96365; 96375; 96376; 99285; J0690; J1170; J2270; J2405; J3010; J3490; J7030; U0002

== ENCOUNTER 2022-04-26 12:59 | Emergency (ER) | payer MEDICARE, BC ==
[2022-04-26] MEDS ORDERED: Lactated Ringers 1,000 ML IV STA (13:38)
[2022-04-26] MEDS ORDERED: Morphine 4 MG/ML Syringe IVPUSH STA (13:38)
[2022-04-26 15:13] LABS: CARBON DIOXIDE,CO2 24.5 mmol/L (21.0-32.0); POTASSIUM,K 3.7 mmol/L (3.5-5.1)
[2022-04-26] MEDS: Iopamidol 755 Mg/ML 100 ML Bottle IVPUSH ONE ×2 (15:59→16:00)
[2022-04-26 18:24] VITALS: BP 195/104; PULSE 94
== END 2022-04-26 18:25 | disposition home or self-care (01) ==
LOC: MW.ED 12:59
DX: K80.20 Calculus of gallbladder without cholecystitis without obstruction (principal); E78.00 Pure hypercholesterolemia, unspecified; M19.90 Unspecified osteoarthritis, unspecified site; E66.9 Obesity, unspecified; Z68.41 Body mass index [BMI] 40.0-44.9, adult; Z88.5 Allergy status to narcotic agent; Z88.2 Allergy status to sulfonamides; Z91.048 Other nonmedicinal substance allergy status; Z79.899 Other long term (current) drug therapy
CPT/HCPCS: 36415; 74177; 76705; 80053; 83605; 83690; 85025; 85610; 87040; 96360; 99284; J7120; Q9967

== ENCOUNTER 2023-08-16 22:05 | Observation (INO) | payer MEDICARE, BC ==
[2023-08-16] MEDS: Morphine 4 MG/ML Syringe IVPUSH ONE (22:47)
[2023-08-16] MEDS: Ondansetron 4 MG/2 ML SDV IVPUSH ONE (22:59)
[2023-08-16] MEDS: Famotidine 20 MG/2 ML SDV IVPUSH ONE (22:59)
[2023-08-16] MEDS: Sodium Chloride 0.9% 500 ML IV SCH (23:00)
[2023-08-16] MEDS: Sodium Chloride 0.9% 10 ML Syringe FLUSH PRN (23:01)
[2023-08-16] MEDS: Sodium Chloride 0.9% 2.5 ML Syringe FLUSH PRN (23:02)
[2023-08-16 23:27] LABS: BASOPHILS ABSOLUTE AUTO 0.03 K/uL (0.00-0.20); BASOPHILS PERCENT AUTO 0.4 % (0.0-1.0); EOSINOPHILS ABSOLUTE AUTO 0.05 K/uL (0.00-0.45); EOSINOPHILS PERCENT AUTO 0.7 % (0.0-6.0); HEMATOCRIT 40.7 % (37.0-47.0); HEMOGLOBIN 13.9 g/dL (12.0-16.0); IMMATURE GRAN ABSOLUTE AUTO 0.02 K/uL (0.00-0.05); IMMATURE GRAN PERCENT AUTO 0.3 % (0.0-0.4); LYMPHOCYTES ABSOLUTE AUTO 0.43 K/uL (1.00-4.80); LYMPHOCYTES PERCENT AUTO 6.1 % (24.0-44.0); MEAN CORPUSCULAR HEMOGLOBIN 34.1 pg (28.0-32.0); MEAN CORPUSCULAR HGB CONC 34.2 g/dL (32.0-36.0); MEAN CORPUSCULAR VOLUME 99.8 fL (83.0-99.0); MONOCYTES ABSOLUTE AUTO 0.36 K/uL (0.00-0.80); MONOCYTES PERCENT AUTO 5.1 % (0.0-8.0); NEUTROPHILS ABSOLUTE AUTO 6.21 K/uL (1.80-7.70); NEUTROPHILS PERCENT AUTO 87.4 % (41.0-71.0); PLATELET COUNT,PLT 224 K/uL (150-400); RED BLOOD CELL COUNT 4.08 M/uL (4.10-5.30)
[2023-08-16 23:44] LABS: INR 1.07 (0.86-1.11); PTT,PARTIAL THROMBOPLSTIN TIME 27.1 SEC (23.9-30.7)
[2023-08-17 00:02] LABS: A/G RATIO 0.9 (0.9-1.6); ALBUMIN 3.1 g/dL (3.4-5.0); BILIRUBIN TOTAL 2.8 mg/dL (0.2-1.0); CALCIUM 8.6 mg/dL (8.5-10.1); CARBON DIOXIDE,CO2 26.9 mmol/L (21.0-32.0); CREATININE 1.1 mg/dL (0.6-1.0); EST CRCL DRUG DOSING (CG) 38.8 mL/min; POTASSIUM,K 3.5 mmol/L (3.5-5.1); PROTEIN TOTAL,TP 6.7 g/dL (6.4-8.2)
[2023-08-17] MEDS: Acetaminophen 500 MG Tab PO ONE (00:08)
[2023-08-17] MEDS: Iopamidol 755 MG/ML 500 ML Multipack Bottle IVPUSH ONE (00:33)
[2023-08-17 00:49] LABS: APPEARANCE,URINE CLEAR; BILIRUBIN,URINE NEGATIVE (NEGATIVE); COLOR,URINE YELLOW; GLUCOSE,URINE NEGATIVE (NEGATIVE); KETONES,URINE NEGATIVE (NEGATIVE); LEUKOCYTE ESTERASE,URINE NEGATIVE (NEGATIVE); NITRITE,URINE NEGATIVE (NEGATIVE); OCCULT BLOOD,URINE NEGATIVE (NEGATIVE); PH,URINE 5.5 (5.0-8.0); PROTEIN,URINE NEGATIVE (NEGATIVE); UROBILINOGEN,URINE 0.2 EU/dL (<2.0)
[2023-08-17] MEDS: Dextrose 5%-0.45% NaCl 1,000 ML IV SCH (01:26)
[2023-08-17] MEDS: Morphine 4 MG/ML Syringe IVPUSH ONE (01:26)
[2023-08-17] MEDS: oxyCODONE 5 MG Tab PO PRN (03:26)
[2023-08-17] MEDS: Sodium Chloride 0.9% 1,000 ML IV SCH (03:38)
[2023-08-17 06:15] LABS: BASOPHILS ABSOLUTE AUTO 0.03 K/uL (0.00-0.20); BASOPHILS PERCENT AUTO 0.5 % (0.0-1.0); EOSINOPHILS ABSOLUTE AUTO 0.07 K/uL (0.00-0.45); EOSINOPHILS PERCENT AUTO 1.1 % (0.0-6.0); HEMATOCRIT 41.5 % (37.0-47.0); HEMOGLOBIN 14.4 g/dL (12.0-16.0); IMMATURE GRAN ABSOLUTE AUTO 0.02 K/uL (0.00-0.05); IMMATURE GRAN PERCENT AUTO 0.3 % (0.0-0.4); LYMPHOCYTES ABSOLUTE AUTO 0.28 K/uL (1.00-4.80); LYMPHOCYTES PERCENT AUTO 4.3 % (24.0-44.0); MEAN CORPUSCULAR HEMOGLOBIN 34.7 pg (28.0-32.0); MEAN CORPUSCULAR HGB CONC 34.7 g/dL (32.0-36.0); MEAN PLATELET VOLUME 9.9 fL (9.4-12.3); MONOCYTES ABSOLUTE AUTO 0.52 K/uL (0.00-0.80); NEUTROPHILS ABSOLUTE AUTO 5.62 K/uL (1.80-7.70); NEUTROPHILS PERCENT AUTO 85.8 % (41.0-71.0); PLATELET COUNT,PLT 217 K/uL (150-400); RED BLOOD CELL COUNT 4.15 M/uL (4.10-5.30); WHITE BLOOD CELL COUNT,WBC 6.54 K/uL (3.9-11.3)
[2023-08-17 06:36] LABS: CARBON DIOXIDE,CO2 26.4 mmol/L (21.0-32.0); EST CRCL DRUG DOSING (CG) 42.68 mL/min
[2023-08-17] MEDS ORDERED: Ketorolac 30 MG/ML SDV IVPUSH PRN (09:21)
[2023-08-17] MEDS: HYDROmorphone 1 MG/ML Syringe IM ONE (09:38)
[2023-08-17] MEDS: HYDROmorphone 2 MG/ML Syringe IVPUSH ONE (09:45)
[2023-08-17] MEDS: Phenol 1.4% Oral Spray 177 ML Bottle MUCMEM PRN (09:46)
[2023-08-17] MEDS: Heparin Sodium 5,000 Units/ML Vial SUBCUT SCH (12:32)
[2023-08-17] MEDS: Ondansetron 4 MG/2 ML SDV IVPUSH PRN (12:34)
[2023-08-17] MEDS: HYDROmorphone 1 MG/ML Syringe IVPUSH PRN (20:18)
[2023-08-18] MEDS: Pantoprazole 40 MG in Sodium Chloride 0.9% 10 ML IVPUSH ONE (00:56)
[2023-08-18 05:30] LABS: BASOPHILS ABSOLUTE AUTO 0.01 K/uL (0.00-0.20); BASOPHILS PERCENT AUTO 0.2 % (0.0-1.0); HEMATOCRIT 40.6 % (37.0-47.0); HEMOGLOBIN 13.6 g/dL (12.0-16.0); IMMATURE GRAN ABSOLUTE AUTO 0.01 K/uL (0.00-0.05); IMMATURE GRAN PERCENT AUTO 0.2 % (0.0-0.4); LYMPHOCYTES ABSOLUTE AUTO 0.23 K/uL (1.00-4.80); MEAN CORPUSCULAR HEMOGLOBIN 33.9 pg (28.0-32.0); MEAN CORPUSCULAR HGB CONC 33.5 g/dL (32.0-36.0); MEAN CORPUSCULAR VOLUME 101.2 fL (83.0-99.0); MEAN PLATELET VOLUME 10.1 fL (9.4-12.3); MONOCYTES ABSOLUTE AUTO 0.64 K/uL (0.00-0.80); NEUTROPHILS ABSOLUTE AUTO 3.67 K/uL (1.80-7.70); NEUTROPHILS PERCENT AUTO 80.6 % (41.0-71.0); PLATELET COUNT,PLT 182 K/uL (150-400); RED BLOOD CELL COUNT 4.01 M/uL (4.10-5.30); WHITE BLOOD CELL COUNT,WBC 4.56 K/uL (3.9-11.3)
[2023-08-18 05:53] LABS: A/G RATIO 0.7 (0.9-1.6); ALBUMIN 2.7 g/dL (3.4-5.0); BILIRUBIN TOTAL 3.5 mg/dL (0.2-1.0); CARBON DIOXIDE,CO2 28.8 mmol/L (21.0-32.0); EST CRCL DRUG DOSING (CG) 42.68 mL/min; POTASSIUM,K 3.9 mmol/L (3.5-5.1); PROTEIN TOTAL,TP 6.4 g/dL (6.4-8.2)
[2023-08-18] MEDS ORDERED: Sodium Chloride 0.9% 10 ML Syringe FLUSH PRN (08:24)
[2023-08-18] MEDS ORDERED: Sodium Chloride 0.9% 2.5 ML Syringe FLUSH PRN (08:24)
[2023-08-18] MEDS: LORazepam 2 MG/ML SDV IVPUSH PRN (09:59)
[2023-08-18 13:15] VITALS: BP 134/58; PULSE 66
[2023-08-18] MEDS ORDERED: Pantoprazole 40 MG in Sodium Chloride 0.9% 10 ML IVPUSH SCH (21:00)
== END 2023-08-18 13:59 ==
LOC: MW.ED 22:05 → MW.MS 08-17 01:16
PROVIDERS: ADMIT Internal Medicine; ATTEND Internal Medicine
DX: K56.609 Unspecified intestinal obstruction, unspecified as to partial versus complete obstruction (principal); K43.3 Parastomal hernia with obstruction, without gangrene; E78.00 Pure hypercholesterolemia, unspecified; K21.9 Gastro-esophageal reflux disease without esophagitis; E66.9 Obesity, unspecified; Z68.43 Body mass index [BMI] 50.0-59.9, adult; Z98.890 Other specified postprocedural states; Z87.891 Personal history of nicotine dependence; Z88.8 Allergy status to other drugs, medicaments and biological substances; Z88.2 Allergy status to sulfonamides; Z88.5 Allergy status to narcotic agent; Z91.048 Other nonmedicinal substance allergy status
CPT/HCPCS: 36415; 74018; 74177; 80048; 80053; 81003; 82947; 83690; 84484; 85025; 85610; 85730; 96361; 96372; 96374; 96375; 96376; 99285; A9270; C9113; G0378; J1170; J1644; J2060; J2270; J2405; J3490; J7030; J7040; J7042; Q9967

== ENCOUNTER 2024-11-10 16:50 | Emergency (ER) | payer MEDICARE, BC ==
[2024-11-10] MEDS ORDERED: Sodium Chloride 0.9% 10 ML Syringe FLUSH PRN (17:33)
[2024-11-10] MEDS ORDERED: Sodium Chloride 0.9% 2.5 ML Syringe FLUSH PRN (17:33)
[2024-11-10] MEDS: Alum Hydrox/Mag Hydrox/Simeth 15 ML, Metoclopramide 5 MG, Lidocaine 2% 5 ML PO ONE (17:52)
[2024-11-10] MEDS: Sodium Chloride 0.9% 1,000 ML IV ONE (18:24)
[2024-11-10 18:47] LABS: BASOPHILS ABSOLUTE AUTO 0.03 K/uL (0.00-0.20); BASOPHILS PERCENT AUTO 0.5 % (0.0-1.0); EOSINOPHILS ABSOLUTE AUTO 0.06 K/uL (0.00-0.45); HEMATOCRIT 38.8 % (37.0-47.0); HEMOGLOBIN 13.9 g/dL (12.0-16.0); IMMATURE GRAN ABSOLUTE AUTO 0.01 K/uL (0.00-0.05); IMMATURE GRAN PERCENT AUTO 0.2 % (0.0-0.4); LYMPHOCYTES ABSOLUTE AUTO 0.66 K/uL (1.00-4.80); LYMPHOCYTES PERCENT AUTO 11.4 % (24.0-44.0); MEAN CORPUSCULAR HEMOGLOBIN 36.4 pg (28.0-32.0); MEAN CORPUSCULAR HGB CONC 35.8 g/dL (32.0-36.0); MEAN CORPUSCULAR VOLUME 101.6 fL (83.0-99.0); MEAN PLATELET VOLUME 10.6 fL (9.4-12.3); MONOCYTES ABSOLUTE AUTO 0.41 K/uL (0.00-0.80); MONOCYTES PERCENT AUTO 7.1 % (0.0-8.0); NEUTROPHILS PERCENT AUTO 79.8 % (41.0-71.0); PLATELET COUNT,PLT 201 K/uL (150-400); RED BLOOD CELL COUNT 3.82 M/uL (4.10-5.30); WHITE BLOOD CELL COUNT,WBC 5.77 K/uL (3.9-11.3)
[2024-11-10 19:03] LABS: INR 1.02 (0.86-1.11)
[2024-11-10 19:17] LABS: A/G RATIO 0.9 (0.9-1.6); ALBUMIN 3.3 g/dL (3.4-5.0); BILIRUBIN TOTAL 3.1 mg/dL (0.2-1.0); CALCIUM 8.7 mg/dL (8.5-10.1); CARBON DIOXIDE,CO2 30.2 mmol/L (21.0-32.0); CREATININE 1.1 mg/dL (0.6-1.0); EST CRCL DRUG DOSING (CG) 39.92 mL/min; POTASSIUM,K 3.5 mmol/L (3.5-5.1); TSH ULTRASENSITIVE 0.56 uIU/mL (0.36-3.74)
[2024-11-10 19:53] VITALS: BP 140/80; PULSE 79
== END 2024-11-10 19:52 | disposition home or self-care (01) ==
LOC: MW.ED 16:50
DX: K80.20 Calculus of gallbladder without cholecystitis without obstruction (principal); E80.6 Other disorders of bilirubin metabolism; E78.00 Pure hypercholesterolemia, unspecified; K21.9 Gastro-esophageal reflux disease without esophagitis; Z90.710 Acquired absence of both cervix and uterus; Z88.5 Allergy status to narcotic agent; Z88.8 Allergy status to other drugs, medicaments and biological substances; Z91.048 Other nonmedicinal substance allergy status; Z79.899 Other long term (current) drug therapy; Z75.3 Unavailability and inaccessibility of health-care facilities
CPT/HCPCS: 36415; 71045; 76705; 80053; 83690; 83880; 84443; 84484; 85025; 85610; 93005; 96360; 99284; A9270; J7030; 93010